=== PATIENT | male | born 1935 | race Two or more races ===

== ENCOUNTER 2017-05-15 19:00 | Inpatient (IN) | payer MEDICARE, MEDICAID ==
[~2017-05-15] VITALS: Ht 172.7 cm; Wt 79.8 kg
[2017-05-15 19:08] VITALS: BP 115/64
[2017-05-15 20:33] LABS: MEAN CORPUSCULAR HEMOGLOBIN 35.1 PG (27.0-31.0); MEAN CORPUSCULAR HGB CONC 34.1 G/DL (32.0-36.0); MEAN CORPUSCULAR VOLUME 103 FL (80-99); MEAN PLATELET VOLUME 6.3 FL (6.5-10.1); PLATELET COUNT 175 K/UL (150-450); RED BLOOD COUNT 2.76 M/UL (4.70-6.10); RED CELL DISTRIBUTION WIDTH 14.1 % (11.6-14.8); WHITE BLOOD COUNT 6.4 K/UL (4.8-10.8)
[2017-05-15 20:52] LABS: TROPONIN I < 0.30 ng/mL (<=0.30)
[2017-05-15 20:55] LABS: ALANINE AMINOTRANSFERASE 11 U/L (3-41); ALBUMIN/GLOBULIN RATIO 0.7 (1.0-2.7); ANION GAP 20 (5-15); ASPARTATE AMINO TRANSFERASE 26 U/L (5-40); CALCIUM 8.3 mg/dL (8.6-10.2); CARBON DIOXIDE 20 mEQ/L (20-30); CHLORIDE 99 mEQ/L (98-107); CREATININE 2.8 mg/dL (0.7-1.2); HEMOLYSIS 2; POTASSIUM 3.6 mEQ/L (3.4-4.9); SODIUM 139 mEQ/L (135-145); TOTAL PROTEIN 5.7 g/dL (6.6-8.7)
[2017-05-15 20:57] LABS: APPEARANCE,URINE CLEAR; KETONES,URINE NEGATIVE (NEGATIVE); LEUKOCYTE ESTERASE ,URINE 1+ (NEGATIVE); NITRITE,URINE NEGATIVE (NEGATIVE); PH,URINE 5 (4.5-8.0); PROTEIN,URINE NEGATIVE (NEGATIVE); UROBILINOGEN,URINE NORMAL MG/DL (0.0-1.0)
[2017-05-15 21:00] LABS: REFLEX LACTIC ACID YES OR NO YES
[2017-05-15 21:05] LABS: CKMB 4.3 ng/mL (< 6.7)
[2017-05-15] MEDS ORDERED: Azithromycin 500 MG in D5W 275 ML IVPB ONE (21:15)
[2017-05-15] MEDS ORDERED: Piperacillin/Tazobactam 3.375 GM in NS 110 ML IVPB ONE (21:15)
[2017-05-15] MEDS ORDERED: Zosyn 3.375gm inj ONE (21:15)
[2017-05-15 21:19] LABS: BAND NEUTROPHILS % (MANUAL) 1 % (0-8); LYMPHOCYTES % (MANUAL) 5 % (20-45); NEUTROPHILS % (MANUAL) 92 % (45-75); TOTAL CELLS COUNTED 100
[2017-05-15 21:20] LABS: BASOPHILS % (MANUAL) 0 % (0-2); EOSINOPHILS % (MANUAL) 0 % (0-3); MACROCYTES 1+; PLATELET ESTIMATE ADEQUATE; PLATELET MORPHOLOGY NORMAL
[2017-05-15 21:22] LABS: RBC,URINE 0-2 /HPF (0 - 0); SQUAMOUS EPITHELIAL CELL,UR FEW /LPF (NONE/OCC)
[2017-05-15 21:23] LABS: BACTERIA,URINE OCCASIONAL /HPF
[2017-05-15 21:41] LABS: BILIRUBIN,DIRECT 4.4 mg/dL (0.1-0.3)
--- NOTE | 2017-05-15 21:50 | Emergency Room Report ---
History of Present Illness General Chief Complaint: Generalized Weakness Source: Family Member, Medical Record Present Illness HPI 81-year-old male presents to ED for evaluation. [facility]. Starting today family states that patient appeared more weak than usual, nursing stated that patient appeared hypoxic on room air. Upon arrival patient is on nasal cannula. Patient has history of COPD, recently treated for pneumonia. Currently on antibiotics. No fevers or chills. No chest pain or shortness of breath. No other aggravating relieving factors. No other associated symptoms Allergies: Coded Allergies: No Known Allergies (Unverified , 05/15/17) Patient History Past Medical History: HTN, COPD Past Surgical History: none Pertinent Family History: none Social History: Denies: smoking, alcohol use, drug use Immunizations: UTD Reviewed Nursing Documentation: PMH: Agreed, PSxH: Agreed Nursing Documentation-PMH Hx Hypertension: Yes Hx COPD: Yes Review of Systems All Other Systems: negative except mentioned in HPI Physical Exam Vital Signs Date Time Temp Pulse Resp B/P (MAP) Pulse Ox O2 Delivery O2 Flow Rate FiO2 05/15/17 18:56 98.4 81 18 110/50 90 Nasal Cannula 3.0 Sp02 EP Interpretation: reviewed, normal General Appearance: no apparent distress, GCS 15, non-toxic, lethargic Head: normocephalic, atraumatic Eyes: bilateral eye normal inspection, bilateral eye PERRL ENT: hearing grossly normal, normal pharynx, no angioedema, normal voice Neck: full range of motion, supple/symm/no masses Respiratory: chest non-tender, crackles, speaking full sentences Cardiovascular #1: regular rate, rhythm, no edema Cardiovascular #2: 2+ carotid (R), 2+ carotid (L), 2+ radial (R), 2+ radial (L) , 2+ dorsalis pedis (R), 2+ dorsalis pedis (L) Gastrointestinal: normal bowel sounds, non tender, soft, non-distended, no guarding, no rebound Rectal: deferred Genitourinary: normal inspection, no CVA tenderness Musculoskeletal: back normal, gait/station normal, normal range of motion, non- tender Neurologic: other - lethargic Psychiatric: other - lethargic Reflexes: 3+ bicep (R), 3+ bicep (L), 3+ tricep (R), 3+ tricep (L), 3+ knee (R) , 3+ knee (L) Skin: normal color, no rash, warm/dry, well hydrated Lymphatic: no adenopathy Medical Decision Making Diagnostic Impression: Primary Impression: COPD exacerbation Additional Impressions: Pneumonia Qualified Codes: J18.1 - Lobar pneumonia, unspecified organism Sepsis Qualified Codes: A41.9 - Sepsis, unspecified organism ARF (acute renal failure) Qualified Codes: N17.9 - Acute kidney failure, unspecified ER Course Hospital Course 81-year-old male sent to ED for hypoxia, shortness of breath, weakness Differential diagnoses include: Pneumonia, CHF exacerbation, pneumothorax, fluid overload Clinical course Patient placed on stretcher. 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 After initial history and physical, I ordered labs, IV fluids, EKG, chest x-ray , blood cultures, UA. Patient placed on nasal cannula with O2 saturation improving Labs -leukocytosis noted, hemoglobin/hematocrit stable, BUN/Cr elevated, Lactate > 3, AG elevated, UA negative EKG - afib ,RBBB, no acute changes intperretd by me CXR - bilateral lower lobe infiltrates 30 mL per kg fluid bolus given. abx given Case discussed with Dr. Nair (as requested by Dr Gray) and he agreed to the patient to his service for further care and support I feel this is a highly complex case requiring extensive working including EKG/ Rhythm strip, Xray/CT/US, Blood/urine lab work, repeat exams while in ED, and administration of strong opiates/narcotics for pain control, admission to hospital or close patient follow up. Diagnosis - pneumonia, COPD exacerbation, sepsis, ARF Patient admitted to telemetry in serious condition Labs Test 05/15/17 20:13 05/15/17 20:30 White Blood Count 6.4 K/UL (4.8-10.8) Red Blood Count 2.76 M/UL (4.70-6.10) Hemoglobin 9.7 G/DL (14.2-18.0) Hematocrit 28.5 % (42.0-52.0) Mean Corpuscular Volume 103 FL (80-99) Mean Corpuscular Hemoglobin 35.1 PG (27.0-31.0) Mean Corpuscular Hemoglobin Concent 34.1 G/DL (32.0-36.0) Red Cell Distribution Width 14.1 % (11.6-14.8) Platelet Count 175 K/UL (150-450) Mean Platelet Volume 6.3 FL (6.5-10.1) Neutrophils (%) (Auto) % (45.0-75.0) Lymphocytes (%) (Auto) % (20.0-45.0) Monocytes (%) (Auto) % (1.0-10.0) Eosinophils (%) (Auto) % (0.0-3.0) Basophils (%) (Auto) % (0.0-2.0) Differential Total Cells Counted 100 Neutrophils % (Manual) 92 % (45-75) Lymphocytes % (Manual) 5 % (20-45) Monocytes % (Manual) 2 % (1-10) Eosinophils % (Manual) 0 % (0-3) Basophils % (Manual) 0 % (0-2) Band Neutrophils 1 % (0-8) Platelet Estimate Adequate Platelet Morphology Normal Macrocytosis 1+ Sodium Level 139 mEQ/L (135-145) Potassium Level 3.6 mEQ/L (3.4-4.9) Chloride Level 99 mEQ/L (98-107) Carbon Dioxide Level 20 mEQ/L (20-30) Anion Gap 20 (5-15) Blood Urea Nitrogen 95 mg/dL (7-23) Creatinine 2.8 mg/dL (0.7-1.2) Estimat Glomerular Filtration Rate mL/min (>60) Glucose Level 173 mg/dL (74-106) Lactic Acid Level 3.30 mmol/L (0.66-2.22) Calcium Level 8.3 mg/dL (8.6-10.2) Total Bilirubin 5.8 mg/dL (0.0-1.2) Direct Bilirubin 4.4 mg/dL (0.1-0.3) Aspartate Amino Transf (AST/SGOT) 26 U/L (5-40) Alanine Aminotransferase (ALT/SGPT) 11 U/L (3-41) Alkaline Phosphatase 178 U/L (40-129) Total Creatine Kinase 48 U/L (38-174) Creatine Kinase MB 4.3 ng/mL (< 6.7) Creatine Kinase MB Relative Index 8.9 Troponin I < 0.30 ng/mL (<=0.30) Pro-B-Type Natriuretic Peptide 87462 pg/mL (0-450) Total Protein 5.7 g/dL (6.6-8.7) Albumin 2.5 g/dL (3.5-5.2) Globulin 3.2 g/dL Albumin/Globulin Ratio 0.7 (1.0-2.7) Urine Color Yellow Urine Appearance Clear Urine pH 5 (4.5-8.0) Urine Specific [place] 1.015 (1.005-1.035) Urine Protein Negative (NEGATIVE) Urine Glucose (UA) Negative (NEGATIVE) Urine Ketones Negative (NEGATIVE) Urine Occult Blood Negative (NEGATIVE) Urine Nitrite Negative (NEGATIVE) Urine Bilirubin Negative (NEGATIVE) Urine Urobilinogen Normal MG/DL (0.0-1.0) Urine Leukocyte Esterase 1+ (NEGATIVE) Urine RBC 0-2 /HPF (0 - 0) Urine WBC 5-10 /HPF (0 - 0) Urine Squamous Epithelial Cells Few /LPF (NONE/OCC) Urine Bacteria Occasional /HPF (NONE) EKG Diagnostic Results Rate: normal Rhythm: other - afib ST Segments: other - RBBB ASA given to the pt in ED: No Rhythm Strip Diag. Results EP Interpretation: yes Rhythm: no PVC's, no ectopy Chest X-Ray Diagnostic Results Chest X-Ray Diagnostic Results : Chest X-Ray Ordered: Yes Indication: Shortness of Breath EP Interpretation: Yes Interpretation: no pneumothorax, no acute cardiopulmonary disease Impression: Other - pneumonia\ Electronically Signed by: Electronically signed by Sergio Lui MD Last Vital Signs Date Time Temp Pulse Resp B/P (MAP) Pulse Ox O2 Delivery O2 Flow Rate FiO2 05/15/17 19:08 98.4 96 15 115/64 90 Nasal Cannula 3.0 Status: improved Disposition: ADMITTED INPATIENT Condition: Serious Referrals: MARIA DEL CARMEN GRAY (PCP) SERGIO LUI M.D. May 15, 2017 21:50
[2017-05-15] MEDS ORDERED: ATORVASTATIN CA20 MG ORAL (21:59)
[2017-05-15] MEDS ORDERED: VITAMIN A & D454 GM TOP (21:59)
[2017-05-15] MEDS ORDERED: VITAMIN A & D113 GM TP (21:59)
[2017-05-15] MEDS ORDERED: NOVOLOG100 UNIT/3 SUBQ (21:59)
[2017-05-15] MEDS ORDERED: VITAMIN C500 M1 ORAL (21:59)
[2017-05-15] MEDS ORDERED: ZINC OXIDE56.7 G1 TP (21:59)
[2017-05-15] MEDS ORDERED: ZINC SULFATE220 M1 ORAL (21:59)
[2017-05-15] MEDS ORDERED: TYLENOL650 MG/20. ORAL (21:59)
[2017-05-15] MEDS ORDERED: ASPIRIN EC81 MG ORAL (21:59)
[2017-05-15] MEDS ORDERED: MULTIVITAMINS1 EAC2 ORAL (21:59)
[2017-05-15 22:00] VITALS: BP 114/64
[2017-05-15] MEDS ORDERED: Azithromycin 500mg Inj IV ONE (22:13)
[2017-05-15 23:40] VITALS: BP 118/70
[2017-05-16] MEDS ORDERED: ASCORBIC ACID500 MG ORAL (00:16)
[2017-05-16] MEDS ORDERED: Albuterol ud Inhalation HHN PRN (00:30)
[2017-05-16 04:00] VITALS: BP 113/59
[2017-05-16] MEDS: NovoLOG Insulin Flexpen SUBQ SCH ×4 (06:53→21:00)
[2017-05-16 08:28] VITALS: BP 118/94
[2017-05-16] MEDS: Aspirin Baby 81mg ORAL SCH (09:28)
--- NOTE | 2017-05-16 09:36 | Infectious Diseases Prog Note ---
Assessment/Plan Problems: (1) HCAP (healthcare-associated pneumonia) Assessment & Plan: will send sputum for culture and start cefepime with clindamycin empirically, monitro CXR (2) Sepsis Assessment & Plan: due to the above, will send blood culture and start cefepime with clindamycin (3) Ascites Assessment & Plan: recurrent, due to liver cirrhosis, recommend paracentesis to rule out SBP, and GI consult (4) Anasarca Assessment & Plan: due to liver cirrhosis, continue diuresis , monitor daily weight (5) COPD exacerbation Assessment & Plan: due to pneumonia, continue inhalers, and oxygen, monitor CXR (6) ARF (acute renal failure) Assessment & Plan: on top of 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, nephrology is following Subjective Allergies: Coded Allergies: No Known Allergies (Unverified , 05/15/17) Objective Vital Signs Last 24 Hour Vital Signs Date Time Temp Pulse Resp B/P (MAP) Pulse Ox O2 Delivery O2 Flow Rate FiO2 05/16/17 08:28 98.3 85 17 118/94 98 Nasal Cannula 2.0 05/16/17 08:08 98 Nasal Cannula 2.0 28 05/16/17 08:08 Nasal Cannula 2.0 28 05/16/17 08:06 94 20 Nasal Cannula 2.0 28 05/16/17 04:00 97.0 101 20 113/59 96 Nasal Cannula 2.0 05/16/17 04:00 74 05/15/17 23:40 97.5 99 14 118/70 94 Nasal Cannula 3.0 05/15/17 23:20 97.4 84 11 114/64 100 Nasal Cannula 3.0 05/15/17 22:00 97.4 84 11 114/64 100 Nasal Cannula 3.0 05/15/17 19:08 98.4 96 15 115/64 90 Nasal Cannula 3.0 05/15/17 18:56 98.4 81 18 110/50 90 Nasal Cannula 3.0 Height (Feet): 5 Height (Inches): 8.00 Weight (Pounds): 174 Laboratory Tests Test 05/15/17 20:13 05/15/17 20:30 05/15/17 21:50 White Blood Count 6.4 K/UL (4.8-10.8) Red Blood Count 2.76 M/UL (4.70-6.10) L Hemoglobin 9.7 G/DL (14.2-18.0) L Hematocrit 28.5 % (42.0-52.0) L Mean Corpuscular Volume 103 FL (80-99) H Mean Corpuscular Hemoglobin 35.1 PG (27.0-31.0) H Mean Corpuscular Hemoglobin Concent 34.1 G/DL (32.0-36.0) Red Cell Distribution Width 14.1 % (11.6-14.8) Platelet Count 175 K/UL (150-450) Mean Platelet Volume 6.3 FL (6.5-10.1) L Neutrophils (%) (Auto) % (45.0-75.0) Lymphocytes (%) (Auto) % (20.0-45.0) Monocytes (%) (Auto) % (1.0-10.0) Eosinophils (%) (Auto) % (0.0-3.0) Basophils (%) (Auto) % (0.0-2.0) Differential Total Cells Counted 100 Neutrophils % (Manual) 92 % (45-75) H Lymphocytes % (Manual) 5 % (20-45) L Monocytes % (Manual) 2 % (1-10) Eosinophils % (Manual) 0 % (0-3) Basophils % (Manual) 0 % (0-2) Band Neutrophils 1 % (0-8) Platelet Estimate Adequate Platelet Morphology Normal Macrocytosis 1+ Sodium Level 139 mEQ/L (135-145) Potassium Level 3.6 mEQ/L (3.4-4.9) Chloride Level 99 mEQ/L (98-107) Carbon Dioxide Level 20 mEQ/L (20-30) Anion Gap 20 (5-15) H Blood Urea Nitrogen 95 mg/dL (7-23) H Creatinine 2.8 mg/dL (0.7-1.2) H Estimat Glomerular Filtration Rate mL/min (>60) Glucose Level 173 mg/dL (74-106) H Lactic Acid Level 3.30 mmol/L (0.66-2.22) H 2.50 mmol/L (0.66-2.22) H Calcium Level 8.3 mg/dL (8.6-10.2) L Total Bilirubin 5.8 mg/dL (0.0-1.2) H Direct Bilirubin 4.4 mg/dL (0.1-0.3) H Aspartate Amino Transf (AST/SGOT) 26 U/L (5-40) Alanine Aminotransferase (ALT/SGPT) 11 U/L (3-41) Alkaline Phosphatase 178 U/L (40-129) H Total Creatine Kinase 48 U/L (38-174) Creatine Kinase MB 4.3 ng/mL (< 6.7) Creatine Kinase MB Relative Index 8.9 Troponin I < 0.30 ng/mL (<=0.30) Pro-B-Type Natriuretic Peptide 25257 pg/mL (0-450) H Total Protein 5.7 g/dL (6.6-8.7) L Albumin 2.5 g/dL (3.5-5.2) L Globulin 3.2 g/dL Albumin/Globulin Ratio 0.7 (1.0-2.7) L Urine Color Yellow Urine Appearance Clear Urine pH 5 (4.5-8.0) Urine Specific [place] 1.015 (1.005-1.035) Urine Protein Negative (NEGATIVE) Urine Glucose (UA) Negative (NEGATIVE) Urine Ketones Negative (NEGATIVE) Urine Occult Blood Negative (NEGATIVE) Urine Nitrite Negative (NEGATIVE) Urine Bilirubin Negative (NEGATIVE) Urine Urobilinogen Normal MG/DL (0.0-1.0) Urine Leukocyte Esterase 1+ (NEGATIVE) H Urine RBC 0-2 /HPF (0 - 0) H Urine WBC 5-10 /HPF (0 - 0) H Urine Squamous Epithelial Cells Few /LPF (NONE/OCC) Urine Bacteria Occasional /HPF (NONE) Current Medications Medications (Trade) Dose Ordered Sig/Jenifer Route PRN Reason Start Time Stop Time Status Last Admin Dose Admin Acetaminophen (Tylenol) 500 mg EVERY 6 HOURS PRN ORAL Mild Pain/Temp > 100.5 05/16/17 00:30 06/15/17 00:29 Al Hydroxide/Mg Hydroxide (Mylanta) 30 ml FOUR TIMES A DAY PRN ORAL For Pain 05/16/17 00:30 06/15/17 00:29 Albuterol Sulfate (Proventil) 2.5 mg EVERY 4 HOURS PRN HHN Shortness of Breath 05/16/17 00:30 05/21/17 00:29 Aspirin (ASA) 81 mg DAILY ORAL 05/16/17 09:00 06/15/17 08:59 05/16/17 09:28 Atorvastatin Calcium (Lipitor) 20 mg BEDTIME ORAL 05/16/17 21:00 06/15/17 20:59 Cefepime HCl 2 gm/ Dextrose 110 ml @ 220 mls/hr EVERY 12 HOURS IVPB 05/16/17 09:30 05/23/17 09:29 UNV Clindamycin HCl/ Dextrose 50 ml @ 100 mls/hr Q8HR IVPB 05/16/17 09:30 05/23/17 09:29 UNV Dextrose (Dextrose 50%) STAT PRN IV Hypoglycemia 05/16/17 00:30 06/15/17 00:29 Insulin Aspart (NovoLOG) BEFORE MEALS AND HS SUBQ 05/16/17 06:30 06/15/17 06:29 05/16/17 06:53 Axel Jensen M.D. May 16, 2017 09:36
--- NOTE | 2017-05-16 10:56 | Diagnostic Imaging Report ---
Indication: Dyspnea Comparison: None A single view chest radiograph was obtained. Findings: There is blunting of the right costophrenic angle due to pleural effusion or thickening. Suggestion of mild subsegmental basilar atelectasis. The bones are osteopenic. Heart size is normal. No definite infiltrate seen. Aorta is ectatic. Impression: Small right pleural effusion versus pleural thickening. Basilar atelectasis Osteopenia
[2017-05-16] MEDS ORDERED: Heparin 5000 units/ml inj IV ONE (12:00)
[2017-05-16] MEDS ORDERED: Heparin 25,000u/D5W 500ml 500 ML IV SCH ×2 (12:00→12:15)
[2017-05-16] MEDS: Cefepime HCl 2 GM in D5W 110 ML IVPB SCH (12:23)
[2017-05-16 12:25] VITALS: BP 118/65
[2017-05-16 12:30] LABS: MEAN CORPUSCULAR HEMOGLOBIN 33.2 PG (27.0-31.0); MEAN CORPUSCULAR HGB CONC 32.7 G/DL (32.0-36.0); MEAN CORPUSCULAR VOLUME 102 FL (80-99); MEAN PLATELET VOLUME 5.7 FL (6.5-10.1); PLATELET COUNT 148 K/UL (150-450); RED BLOOD COUNT 2.55 M/UL (4.70-6.10); RED CELL DISTRIBUTION WIDTH 14.7 % (11.6-14.8); WHITE BLOOD COUNT 5.4 K/UL (4.8-10.8)
[2017-05-16] MEDS: Clindamycin 600mg 50 ML IV SCH ×2 (13:27→20:24)
[2017-05-16 13:35] LABS: ANISOCYTOSIS 1+; BAND NEUTROPHILS % (MANUAL) 0 % (0-8); BASOPHILS % (MANUAL) 0 % (0-2); EOSINOPHILS % (MANUAL) 0 % (0-3); HYPOCHROMASIA 2+; LYMPHOCYTES % (MANUAL) 4 % (20-45); NEUTROPHILS % (MANUAL) 85 % (45-75); PLATELET ESTIMATE DECREASED; PLATELET MORPHOLOGY NORMAL; TARGET CELLS 1+; TEAR DROP CELLS 1+; TOTAL CELLS COUNTED 100
[2017-05-16 16:00] VITALS: BP 130/73
[2017-05-16 19:59] VITALS: BP 114/65
[2017-05-16] MEDS: Atorvastatin 20mg tab ORAL SCH (20:39)
--- NOTE | 2017-05-16 21:52 | History and Physical ---
History of Present Illness General Date patient seen: May 16, 2017 Reason for Hospitalization: Generalized Weakness Present Illness HPI 81-year-old male with history of HTN and COPD who resides in [facility] presents to the ED with generalized weakness. Per family patient appeared more weak than usual. It was then noted that patient was hypoxic on room air. Apparently patient had pneumonia recently and still on antibiotics. No fevers or chills. No chest pain or shortness of breath. No other aggravating relieving factors. No other associated symptoms Allergies: Coded Allergies: No Known Allergies (Unverified , 05/15/17) Medication History Scheduled Ascorbic Acid* (Ascorbic Acid*), 500 MG ORAL TWICE A DAY, (Reported) Aspirin Ec* (Aspirin Ec*), 81 MG ORAL DAILY, (Reported) Atorvastatin Calcium* (Atorvastatin Calcium*), 20 MG ORAL BEDTIME, (Reported) Multivitamins* (Multivitamins*), 1 TAB ORAL DAILY, (Reported) Zinc Sulfate (Zinc Sulfate*), 220 MG ORAL DAILY, (Reported) Scheduled PRN Acetaminophen (Acetaminophen), 650 MG ORAL EVERY 4 HOURS PRN for Prn Headache/ Temp > 101, (Reported) Miscellaneous Medications Insulin Aspart* (Novolog*), 0 SUBQ, (Reported) Insulin Aspart* (Novolog*), 0 SUBQ, (Reported) Petrolatum,White/Lanolin (Vitamin A & D Ointment), 113 GM TP, (Reported) Vitamin A & D (Vitamin A & D Ointment), 454 GM TOP, (Reported) Zinc Oxide (Zinc Oxide), 56.7 GM TP, (Reported) Patient History History Provided By: Medical Record Healthcare decision maker Resuscitation status Full Code Advanced Directive on File Past Medical/Surgical History Past Medical/Surgical History: (1) HTN (hypertension) (2) COPD (chronic obstructive pulmonary disease) Review of Systems All Other Systems: negative except mentioned in HPI ROS Narrative limited Physical Exam General Appearance: WD/WN, no apparent distress HEENT: normocephalic, atraumatic Respiratory/Chest: decreased breath sounds Cardiovascular/Chest: normal rate, regular rhythm Abdomen: non tender, soft, distended Extremities: moderate edema Neurologic: alert Last 24 Hour Vital Signs Date Time Temp Pulse Resp B/P (MAP) Pulse Ox O2 Delivery O2 Flow Rate FiO2 05/16/17 19:59 97.9 84 20 114/65 100 Nasal Cannula 2.0 05/16/17 19:30 96 Nasal Cannula 2.0 28 05/16/17 19:30 Nasal Cannula 2.0 28 05/16/17 19:30 88 20 Nasal Cannula 2.0 28 05/16/17 16:23 83 05/16/17 16:00 97.5 92 20 130/73 100 Nasal Cannula 3.0 05/16/17 12:25 98.1 94 18 118/65 98 Nasal Cannula 2.0 05/16/17 11:54 82 05/16/17 08:28 98.3 85 17 118/94 98 Nasal Cannula 2.0 05/16/17 08:08 98 Nasal Cannula 2.0 28 05/16/17 08:08 Nasal Cannula 2.0 28 05/16/17 08:06 94 20 Nasal Cannula 2.0 28 05/16/17 07:58 90 05/16/17 04:00 97.0 101 20 113/59 96 Nasal Cannula 2.0 05/16/17 04:00 74 05/15/17 23:40 97.5 99 14 118/70 94 Nasal Cannula 3.0 05/15/17 23:20 97.4 84 11 114/64 100 Nasal Cannula 3.0 05/15/17 22:00 97.4 84 11 114/64 100 Nasal Cannula 3.0 Intake and Output 05/16/17 05/17/17 19:00 07:00 Intake Total 620 ml Balance 620 ml Intake Oral 300 ml IV Total 320 ml # Voids 3 # Bowel Movements 2 Laboratory Tests Test 05/15/17 21:50 05/16/17 12:08 05/16/17 17:30 05/16/17 18:35 Lactic Acid Level 2.50 mmol/L (0.66-2.22) H White Blood Count 5.4 K/UL (4.8-10.8) Red Blood Count 2.55 M/UL (4.70-6.10) L Hemoglobin 8.5 G/DL (14.2-18.0) L Hematocrit 26.0 % (42.0-52.0) L Mean Corpuscular Volume 102 FL (80-99) H Mean Corpuscular Hemoglobin 33.2 PG (27.0-31.0) H Mean Corpuscular Hemoglobin Concent 32.7 G/DL (32.0-36.0) Red Cell Distribution Width 14.7 % (11.6-14.8) Platelet Count 148 K/UL (150-450) L Mean Platelet Volume 5.7 FL (6.5-10.1) L Neutrophils (%) (Auto) % (45.0-75.0) Lymphocytes (%) (Auto) % (20.0-45.0) Monocytes (%) (Auto) % (1.0-10.0) Eosinophils (%) (Auto) % (0.0-3.0) Basophils (%) (Auto) % (0.0-2.0) Differential Total Cells Counted 100 Neutrophils % (Manual) 85 % (45-75) H Lymphocytes % (Manual) 4 % (20-45) L Monocytes % (Manual) 11 % (1-10) H Eosinophils % (Manual) 0 % (0-3) Basophils % (Manual) 0 % (0-2) Band Neutrophils 0 % (0-8) Platelet Estimate Decreased L Platelet Morphology Normal Hypochromasia 2+ Anisocytosis 1+ Target Cells 1+ Tear Drop Cells 1+ Activated Partial Thromboplast Time 33 SEC (23-33) 33 SEC (23-33) Stool Occult Blood Pending Height (Feet): 5 Height (Inches): 8.00 Weight (Pounds): 161 Medications Current Medications Medications (Trade) Dose Ordered Sig/Jenifer Route PRN Reason Start Time Stop Time Status Last Admin Dose Admin Acetaminophen (Tylenol) 500 mg EVERY 6 HOURS PRN ORAL Mild Pain/Temp > 100.5 05/16/17 00:30 06/15/17 00:29 Al Hydroxide/Mg Hydroxide (Mylanta) 30 ml FOUR TIMES A DAY PRN ORAL For Pain 05/16/17 00:30 06/15/17 00:29 Albuterol Sulfate (Proventil) 2.5 mg EVERY 4 HOURS PRN HHN Shortness of Breath 05/16/17 00:30 05/21/17 00:29 Aspirin (ASA) 81 mg DAILY ORAL 05/16/17 09:00 06/15/17 08:59 05/16/17 09:28 Atorvastatin Calcium (Lipitor) 20 mg BEDTIME ORAL 05/16/17 21:00 06/15/17 20:59 05/16/17 20:39 Cefepime HCl 2 gm/ Dextrose 110 ml @ 220 mls/hr Q24H IVPB 05/16/17 11:00 05/23/17 10:59 05/16/17 12:23 Clindamycin HCl/ Dextrose 50 ml @ 100 mls/hr Q8H IV 05/16/17 12:00 05/23/17 11:59 05/16/17 20:24 Dextrose (Dextrose 50%) STAT PRN IV Hypoglycemia 05/16/17 00:30 06/15/17 00:29 Insulin Aspart (NovoLOG) BEFORE MEALS AND HS SUBQ 05/16/17 06:30 06/15/17 06:29 05/16/17 17:16 Assessment/Plan Problem List: (1) COPD exacerbation ICD Codes: J44.1 - Chronic obstructive pulmonary disease with (acute) exacerbation SNOMED: 175612755, 799744848 (2) HTN (hypertension) ICD Codes: I10 - Essential (primary) hypertension SNOMED: 74348314 (3) Pneumonia ICD Codes: J18.9 - Pneumonia, unspecified organism SNOMED: 264631157, 280914833 Qualifiers: Qualified Codes: J18.1 - Lobar pneumonia, unspecified organism (4) Liver cirrhosis ICD Codes: K74.60 - Unspecified cirrhosis of liver SNOMED: 30584651 (5) Ascites ICD Codes: R18.8 - Other ascites SNOMED: 660999860 Assessment/Plan ID consult. GI consult. Cardio consult. Empiric abx per ID. DVT ppx. Monitor labs. Check ammonia level. Resume home meds. MELANIE CONNELLY May 16, 2017 21:52
[2017-05-17] VITALS: BP 106/60
--- NOTE | 2017-05-17 02:15 | Consultation ---
DATE OF CONSULTATION: 05/16/2017 INFECTIOUS DISEASES CONSULTATION REQUESTING PHYSICIAN: Rickie Nair M.D. REASON FOR CONSULTATION: Pneumonia, sepsis. Recommendation for antibiotics therapy and liver cirrhosis HISTORY OF PRESENT ILLNESS: The patient is an 81-year-old male with history of chronic liver cirrhosis with ascites, who was recently admitted to [facility] [place] for worsening ascites and abdominal pain. He was found to have a bowel obstruction and pneumonia. He was started on antibiotics treatment and discharged to half-way facility. The patient was found to be more weak than usual by his family when they visited him in the snf and he was hypoxemic on room air. So, he was sent to [facility] emergency room for further evaluation. The patient had a chest x-ray, which showed bilateral basal atelectases, possible infiltration, suspicious for pneumonia. So, he was admitted for further evaluation and management and I was consulted by the primary provider for antibiotics treatment and further care. As of note, the patient is elderly poor historian. REVIEW OF SYSTEMS: Unable to obtain at this point. The patient is a poor historian, could not provide good history. PAST MEDICAL HISTORY: Significant for hypertension; COPD; chronic liver cirrhosis, complicated with esophageal varices and recurrent ascites, required multiple paracentesis; malnutrition; and recent healthcare-acquired pneumonia, status post antibiotic treatment at [facility]. PAST SURGICAL HISTORY: Negative. MEDICATIONS: The patient received Zosyn in the emergency room. For the rest of his medications. Please refer to MAR. ALLERGIES: He has no known drug allergy. SOCIAL HISTORY: The patient was recently at the rehabilitation facility. There are no recent drugs, tobacco, or alcohol. FAMILY HISTORY: Noncontributory. PHYSICAL EXAMINATION: Vital Signs: Temperature 98.1 degrees, pulse 94, respirations 18, blood pressure 118/65, and saturation 98% on 2 liter nasal cannula. General: Elderly male, cachectic, up in bed, awake, alert, but confused, not in acute distress. HEENT: Normocephalic and atraumatic. Pupils are reactive to light. Pale sclerae. Moist oral mucosa. No exudate. No jaundice. NECK: Supple. No lymphadenopathy. Midline trachea. CARDIOVASCULAR: Regular rate and rhythm. No murmur. No gallop. Lungs: He had diminished breathing sounds with crackles at the bases. Normal breathing efforts. Abdomen: Soft, severely distended with massive ascites. Positive wave sign. Unable to appreciate organomegaly, dull per percussion. Extremities: Edema +2 with multiple skin bruises and a small wound in the right dorsal foot. Skin: He had multiple ecchymosis and bruises with hemorrhage all over his upper and lower extremity and back from his coagulopathy. LABORATORY DATA: White count showed 5.4, hemoglobin 8.5, and platelet count 148,000. BUN of 95 and creatinine of 2.8. AST of 26 and ALT of 11. Urinalysis showed +1 leukocyte esterase, WBC 5 to 10, and occasional bacteria. MICROBIOLOGY: Unavailable at the time of the consult dictation. IMAGING: Chest x-ray on admission showed small right pleural effusion versus pleural thickening, bibasilar atelectases, and osteopenia. ASSESSMENT AND RECOMMENDATION: 1. Healthcare-acquired pneumonia. We will send sputum culture and start cefepime with clindamycin empiric treatment. Monitor chest x-ray. 2. Sepsis, suspect due to the above. We will send blood culture and start antibiotic coverage with cefepime and clindamycin pending culture results. 3. Ascites, recurrent due to liver cirrhosis. Recommend paracentesis to rule out spontaneous bacterial peritonitis and Gastroenterology consult for further evaluation and management. 4. Anasarca due to liver cirrhosis. Continue diuresis. Monitor daily weight and urine output. 5. Chronic obstructive pulmonary disease with exacerbation due to pneumonia. Continue inhalers, oxygen therapy, and antibiotics. Monitor chest x-ray. 6. Acute renal failure on top of chronic, suspect hepatorenal. Nephrology team is following. Thank you for the consult. Infectious Disease will continue to follow. Axel Jensen M.D. DR: JOSE ARMANDO JOB#: [id number] CC: [email or web address]
[2017-05-17 04:00] VITALS: BP 112/55
[2017-05-17] MEDS: Clindamycin 600mg 50 ML IV SCH ×3 (04:30→20:42)
[2017-05-17] MEDS: NovoLOG Insulin Flexpen SUBQ SCH ×4 (06:30→20:43)
[2017-05-17 07:21] LABS: MEAN CORPUSCULAR HEMOGLOBIN 35.1 PG (27.0-31.0); MEAN CORPUSCULAR HGB CONC 34.6 G/DL (32.0-36.0); MEAN CORPUSCULAR VOLUME 101 FL (80-99); MEAN PLATELET VOLUME 6.8 FL (6.5-10.1); PLATELET COUNT 148 K/UL (150-450); RED BLOOD COUNT 2.25 M/UL (4.70-6.10); RED CELL DISTRIBUTION WIDTH 14.6 % (11.6-14.8); WHITE BLOOD COUNT 4.6 K/UL (4.8-10.8)
[2017-05-17 07:34] LABS: ALANINE AMINOTRANSFERASE 9 U/L (3-41); ALBUMIN/GLOBULIN RATIO 0.9 (1.0-2.7); ANION GAP 17 (5-15); ASPARTATE AMINO TRANSFERASE 21 U/L (5-40); CALCIUM 9.6 mg/dL (8.6-10.2); CARBON DIOXIDE 22 mEQ/L (20-30); CHLORIDE 99 mEQ/L (98-107); CREATININE 2.8 mg/dL (0.7-1.2); HEMOLYSIS 2; POTASSIUM 2.8 mEQ/L (3.4-4.9); SODIUM 138 mEQ/L (135-145); TOTAL PROTEIN 5.4 g/dL (6.6-8.7)
[2017-05-17 07:35] LABS: AMMONIA 12 umol/L (16-60)
[2017-05-17 07:38] LABS: HEMOLYSIS 1; IRON 32 ug/dL (59-158); TOTAL IRON BINDING CAPACITY 105 ug/dL (250-400)
[2017-05-17 07:48] LABS: FERRITIN 530 ng/mL (10-230)
[2017-05-17 08:00] VITALS: BP 123/73
[2017-05-17 08:20] LABS: ANISOCYTOSIS 1+; HYPOCHROMASIA 1+; LYMPHOCYTES % (MANUAL) 5 % (20-45); MACROCYTES 1+; NEUTROPHILS % (MANUAL) 90 % (45-75); TOTAL CELLS COUNTED 100
[2017-05-17 08:21] LABS: OVALOCYTES 1+; TARGET CELLS 1+
[2017-05-17 08:22] LABS: BAND NEUTROPHILS % (MANUAL) 0 % (0-8); BASOPHILS % (MANUAL) 0 % (0-2); EOSINOPHILS % (MANUAL) 0 % (0-3); PLATELET ESTIMATE DECREASED; PLATELET MORPHOLOGY NORMAL
[2017-05-17] MEDS: Aspirin Baby 81mg ORAL SCH (08:29)
[2017-05-17 08:36] LABS: BILIRUBIN,DIRECT 3.9 mg/dL (0.1-0.3)
[2017-05-17 08:47] LABS: PATH BLOOD SMEAR/OMC SEND TO PATHOLOGIST; RETICULOCYTE COUNT 2.8 % (0.0-2.0)
--- NOTE | 2017-05-17 09:30 | Consultation ---
DATE OF CONSULTATION: 05/16/2017 HEMATOLOGY/ONCOLOGY CONSULTATION CONSULTING PHYSICIAN: Devyn Hu M.D. REQUESTING PHYSICIAN: Rickie Nair M.D. REASON FOR CONSULTATION: Evaluation of SFV DVT treatment. IDENTIFICATION DATA: Dear Dr. Nair, The patient is a pleasant 81-year-old male with past medical history significant for COPD, who resides in a custodial as well as hyperlipidemia, and vitamin C deficiency, at this time presents with generalized weakness, appears more than usual, hypoxic on room air, presently has pneumonia. Chest x-ray was completed thus far and was negative for any acute cardiopulmonary process besides small right pleural effusion. The patient was noted to have a DVT of the SFV and heparin drip was stopped due to the patient becoming anemic. Hematology service was consulted as well. PAST MEDICAL HISTORY: Hypertension and COPD. MEDICATIONS: Ascorbic acid, aspirin, multivitamin, and zinc sulfate. ALLERGIES: No known drug allergies. SOCIAL HISTORY: No alcohol, tobacco, or illicit drug use. Review Of Systems: Constitutional: No fevers, chills, or night sweats. Skin: No rashes, lumps, or itching. HEENT: No headache, hearing or vision changes. Breasts: No lumps, pain, or discharge. Pulmonary: No cough, sputum, or shortness of breath. Gastrointestinal: No nausea or vomiting. Genitourinary: No dysuria, frequency, or urgency. Musculoskeletal: No joint swelling, muscle pain, or trauma. PHYSICAL EXAMINATION: GENERAL: He is in no acute distress. Vital Signs: Temperature is 98 degrees Fahrenheit, pulse of 82, respiratory rate 12, and blood pressure 126/82. PULMONARY: Decreased breath sounds. No crackles noted. CARDIOVASCULAR: Regular rate. No S3 or S4. ABDOMEN: Soft, nontender, and nondistended. EXTREMITIES: There is 1+ edema. Laboratory Data: WBC , hemoglobin , hematocrit 26, and platelet count 148,000. ASSESSMENT AND PLAN: 1. Deep venous thrombosis of superficial femoral vein in the lower extremity, agreed that anticoagulation at this time is contraindicated, given recurrent anemia. Therefore, recommend inferior vena cava filter placement. 2. Coagulopathy. 3. Liver cirrhosis. 4. Anemia secondary to chronic disease. Anemia workup has been ordered. 5. Pneumonia. Management as per ID service. 6. Ascites, probably secondary to underlying cirrhosis of liver. 7. Hypertension, currently better controlled. I appreciate the consultation. Devyn Hu M.D. DR: ELOY JOB#: [id number] CC:
[2017-05-17] MEDS: Acetaminophen 500mg (ES) tab ORAL PRN ×2 (09:59→16:48)
[2017-05-17] MEDS ORDERED: Tubing IV Secondary IV ONE (11:08)
[2017-05-17] MEDS ORDERED: NS 275ml ONE (11:08)
[2017-05-17] MEDS: Cefepime HCl 2 GM in D5W 110 ML IVPB SCH (11:37)
--- NOTE | 2017-05-17 11:37 | General Progress Note ---
Assessment/Plan Assessment/Plan ASSESSMENT AND PLAN: 1. Deep venous thrombosis of superficial femoral vein in the lower extremity, agreed that anticoagulation at this time is contraindicated, given recurrent and worsening anemia. Therefore, recommend inferior vena cava filter placement. Order has been placed 2. Coagulopathy. 3. Liver cirrhosis. 4. Anemia secondary to chronic disease with decrease in HH. No evidence of iron deficiency. --> occult blood is positive, gi consult --> transfuse if patient is symptomatic or hgb below 7 5. Pneumonia. Management as per ID service. 6. Ascites, probably secondary to underlying cirrhosis of liver. 7. Hypertension, currently better controlled. Subjective Constitutional: Reports: no symptoms HEENT: Reports: no symptoms Cardiovascular: Reports: no symptoms Respiratory: Reports: no symptoms Gastrointestinal/Abdominal: Reports: no symptoms Genitourinary: Reports: no symptoms Neurologic/Psychiatric: Reports: no symptoms Endocrine: Reports: no symptoms Hematologic/Lymphatic: Reports: anemia Allergies: Coded Allergies: No Known Allergies (Unverified , 05/15/17) Objective Last 24 Hour Vital Signs Date Time Temp Pulse Resp B/P (MAP) Pulse Ox O2 Delivery O2 Flow Rate FiO2 05/17/17 08:00 86 05/17/17 08:00 97.9 88 18 123/73 100 Nasal Cannula 2.0 05/17/17 07:54 Nasal Cannula 2.0 05/17/17 07:53 86 20 Nasal Cannula 2.0 05/17/17 07:53 100 Nasal Cannula 2.0 28 05/17/17 04:00 78 05/17/17 04:00 97.6 86 20 112/55 100 Nasal Cannula 2.0 05/17/17 00:00 97.0 76 20 106/60 98 Room Air 05/17/17 00:00 91 05/16/17 20:00 93 05/16/17 19:59 97.9 84 20 114/65 100 Nasal Cannula 2.0 05/16/17 19:30 96 Nasal Cannula 2.0 28 05/16/17 19:30 Nasal Cannula 2.0 28 05/16/17 19:30 88 20 Nasal Cannula 2.0 28 05/16/17 16:23 83 05/16/17 16:00 97.5 92 20 130/73 100 Nasal Cannula 3.0 05/16/17 12:25 98.1 94 18 118/65 98 Nasal Cannula 2.0 9/17/17 11:54 82 Laboratory Tests 05/16/17 12:08: White Blood Count 5.4, Red Blood Count 2.55L, Hemoglobin 8.5L, Hematocrit 26.0L , Mean Corpuscular Volume 102H, Mean Corpuscular Hemoglobin 33.2H, Mean Corpuscular Hemoglobin Concent 32.7, Red Cell Distribution Width 14.7, Platelet Count 148L, Mean Platelet Volume 5.7L, Neutrophils (%) (Auto) , Lymphocytes (%) (Auto) , Monocytes (%) (Auto) , Eosinophils (%) (Auto) , Basophils (%) (Auto) , Differential Total Cells Counted 100, Neutrophils % (Manual) 85H, Lymphocytes % (Manual) 4L, Monocytes % (Manual) 11H, Eosinophils % (Manual) 0, Basophils % ( Manual) 0, Band Neutrophils 0, Platelet Estimate DecreasedL, Platelet Morphology Normal, Hypochromasia 2+, Anisocytosis 1+, Target Cells 1+, Tear Drop Cells 1+, Activated Partial Thromboplast Time 33 05/16/17 17:30: Stool Occult Blood Positive 05/16/17 18:35: Activated Partial Thromboplast Time 33 05/17/17 05:35: White Blood Count 4.6L, Red Blood Count 2.25L, Hemoglobin 7.9L, Hematocrit 22.8L , Mean Corpuscular Volume 101H, Mean Corpuscular Hemoglobin 35.1H, Mean Corpuscular Hemoglobin Concent 34.6, Red Cell Distribution Width 14.6, Platelet Count 148L, Mean Platelet Volume 6.8, Neutrophils (%) (Auto) , Lymphocytes (%) ( Auto) , Monocytes (%) (Auto) , Eosinophils (%) (Auto) , Basophils (%) (Auto) , Differential Total Cells Counted 100, Neutrophils % (Manual) 90H, Lymphocytes % (Manual) 5L, Monocytes % (Manual) 5, Eosinophils % (Manual) 0, Basophils % ( Manual) 0, Band Neutrophils 0, Platelet Estimate DecreasedL, Platelet Morphology Normal, Hypochromasia 1+, Anisocytosis 1+, Target Cells 1+, Macrocytosis 1+, Ovalocytes 1+, Reticulocyte Count 2.8H, Haptoglobin 219H, PTT Mixing Study [Pending], APTT Patient/Control Mix [Pending], Mix PTT Incubation Time [Pending], Mix PTT Normal/Saline 1:1 Immediate [Pending], Thrombin Time Normal Plasma [Pending], Fibrinogen 254, Sodium Level 138, Potassium Level 2.8L , Chloride Level 99, Carbon Dioxide Level 22, Anion Gap 17H, Blood Urea Nitrogen 93H, Creatinine 2.8H, Estimat Glomerular Filtration Rate , Glucose Level 115H, Calcium Level 9.6, Iron Level 32L, Total Iron Binding Capacity 105L , Percent Iron Saturation 30, Unsaturated Iron Binding 73L, Ferritin 530H, Total Bilirubin 5.1H, Direct Bilirubin 3.9H, Aspartate Amino Transf (AST/SGOT) 21, Alanine Aminotransferase (ALT/SGPT) 9, Alkaline Phosphatase 155H, Ammonia 12L, Total Protein 5.4L, Albumin 2.6L, Globulin 2.8, Albumin/Globulin Ratio 0.9L , Vitamin B12 Level 1385H, Methylmalonic Acid [Pending], Folate [Pending], Hepatitis A IgM Antibody [Pending], Hepatitis B Surface Antigen [Pending], Hepatitis B Core IgM Antibody [Pending], Hepatitis C Antibody [Pending], HIV (1& 2) Antibody Rapid Negative Height (Feet): 5 Height (Inches): 8.00 Weight (Pounds): 161 General Appearance: no apparent distress EENT: PERRL/EOMI Neck: normal alignment Cardiovascular: normal peripheral pulses Edema: no edema noted Pedal (L), no edema noted Pedal (R) Edema: trace edema 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
[2017-05-17 12:00] VITALS: BP 115/63
--- NOTE | 2017-05-17 14:27 | Wound Care Consultation ---
Wound Assessment Wound Assessment #1: Wound Number: 1 Wound Present on Admission: Yes New Wound: No Status Change of Wound: No Wound Location Body Site Modif: posterior Wound Location Body Site: back Wound Type: ecchymosis - scattered throughout back , mid spine deep asiya colored ecchymosis at high risk for skin breakdown Sharon Test: Does not Sharon Percent of Wound Purple/Maroon: 100 - scattered deep maroon. Wound Drainage Amount: None Wound Drainage Odor: None/Absent Tissue Surrounding Wound: Erythemic - maroon. Wound General Appearance: Reddened Wound Assessment #2: Wound Number: 2 Wound Present on Admission: Yes New Wound: No Status Change of Wound: No Wound Location Body Site Modif: left, upper Wound Location Body Site: arm Wound Type: ecchymosis - scattered ecchymosis and ruptured ecchymosis. Sharon Test: Does not Sharon Wound Thickness: Partial Thickness Percent of Wound [place]/Red: 50 Percent of Wound Purple/Maroon: 50 Wound Drainage Description: Serosanguineous Wound Drainage Amount: Moderate Wound Drainage Odor: None/Absent Tissue Surrounding Wound: Erythemic Wound General Appearance: Reddened, Draining Wound Assessment #3: Wound Number: 3 Wound Present on Admission: Yes New Wound: No Status Change of Wound: No Wound Location Body Site Modif: right, upper Wound Location Body Site: arm Wound Type: ecchymosis - scattered ecchymosis and ruptured ecchymosis Sharon Test: Does not Sharon Wound Thickness: Partial Thickness - scattered Percent of Wound [place]/Red: 50 Percent of Wound Purple/Maroon: 50 Wound Drainage Description: Serosanguineous Wound Drainage Amount: Moderate Wound Drainage Odor: None/Absent Tissue Surrounding Wound: Erythemic Wound General Appearance: Reddened Wound Assessment #4: Wound Number: 4 Wound Present on Admission: Yes New Wound: No Status Change of Wound: No Wound Location Body Site Modif: left, lower, anterior, posterior, medial, lateral Wound Location Body Site: leg Wound Type: ecchymosis Sharon Test: Does not Sharon Percent of Wound Purple/Maroon: 100 - scattered Wound Drainage Amount: None Wound Drainage Odor: None/Absent Tissue Surrounding Wound: Erythemic Wound General Appearance: Reddened Wound Assessment #5: Wound Number: 5 Wound Present on Admission: Yes New Wound: No Status Change of Wound: No Wound Location Body Site Modif: right, lower, anterior, posterior, medial, lateral Wound Location Body Site: leg Wound Type: ecchymosis - scattered Sharon Test: Does not Sharon Percent of Wound Purple/Maroon: 100 Wound Drainage Amount: None Wound Drainage Odor: None/Absent Tissue Surrounding Wound: Erythemic Wound General Appearance: Reddened Wound Assessment #6: Wound Number: 6 Wound Present on Admission: Yes New Wound: No Status Change of Wound: No Wound Location Body Site Modif: left Wound Location Body Site: heel Wound Type: pressure ulcer Sharon Test: Does not Sharon Pressure Ulcer Stage: deep tissue injury Wound Thickness: Full Thickness Wound Length: 4.0 Wound Width: 4.0 Wound Depth: utd Percent of Wound [place]/Red: 20 Percent of Wound Purple/Maroon: 80 Wound Drainage Amount: None Wound Drainage Odor: None/Absent Tissue Surrounding Wound: Erythemic Wound General Appearance: Reddened - maroon Wound Assessment #7: Wound Number: 7 Wound Present on Admission: Yes New Wound: No Status Change of Wound: No Wound Location Body Site Modif: right Wound Location Body Site: toe - 5th Wound Type: scab Sharon Test: Does not Sharon Wound Thickness: Full Thickness Wound Length: 1.0 Wound Width: 1.0 Wound Depth: utd Percent of Wound Black/Brown: 100 Wound Drainage Description: Serosanguineous Wound Drainage Amount: Scant Wound Drainage Odor: None/Absent Tissue Surrounding Wound: Erythemic Wound General Appearance: Reddened Wound Assessment #8: Wound Number: 8 Wound Present on Admission: Yes New Wound: No Status Change of Wound: No Wound Location Body Site Modif: right Wound Location Body Site: heel Wound Type: pressure ulcer Sharon Test: Does not Sharon Pressure Ulcer Stage: I Wound Length: 4.0 Wound Width: 4.0 Percent of Wound [place]/Red: 100 Wound Drainage Amount: None Tissue Surrounding Wound: Erythemic Wound General Appearance: Reddened Wound Assessment #9: Wound Number: 9 Wound Present on Admission: Yes New Wound: No Status Change of Wound: No Wound Location Body Site Modif: right, dorsal Wound Location Body Site: foot Wound Type: other - open wound -etiology unknown. Sharon Test: Does not Sharon Wound Thickness: Full Thickness Wound Length: 2.0 Wound Width: 2.0 Wound Depth: utd Percent of Wound [place]/Red: 20 Percent of Wound Bed Yellow/Wh: 80 - thick yellow scab Wound Drainage Description: Serosanguineous Wound Drainage Amount: Scant Wound Drainage Odor: None/Absent Tissue Surrounding Wound: Erythemic Wound General Appearance: Reddened Wound Assessment #10: Wound Number: 10 Wound Present on Admission: Yes New Wound: No Status Change of Wound: No Wound Location Body Site Modif: mid, posterior - and left side of posterior back Wound Type: other - open wounds scattere possibly ruptured from deep maroon colored ecchymosis over bony area Sharon Test: Does not Sharon Pressure Ulcer Stage: II Wound Thickness: Partial Thickness Percent of Wound [place]/Red: 100 - scattered Wound Drainage Description: Serosanguineous Wound Drainage Amount: Moderate Wound Drainage Odor: None/Absent Tissue Surrounding Wound: Denuded Wound General Appearance: Reddened, Draining Wound Assessment #11: Wound Number: 11 Wound Present on Admission: Yes New Wound: No Status Change of Wound: No Wound Location Body Site: perineal area Wound Type: chemical burn Sharon Test: Does not Sharon Percent of Wound [place]/Red: 100 Wound Drainage Amount: None Wound Drainage Odor: None/Absent Tissue Surrounding Wound: Erythemic Wound General Appearance: Reddened Wound Comment #1 mid posterior back scattered deep maroon ecchymosis. large area covered in ecchymosis. at risk for skin breakdown along spinal area bony areas. #2 left upper extremity scattered ecchymosis and ruptured ecchymosis. #3 right upper extremity scattered ecchymosis and ruptured ecchymosis. #4 left lower extremity( posterior,anterior,medial ,lateral) scattered maroon ecchymosis. #5 right lower extremity( posterior,anterior,medial ,lateral) scattered maroon ecchymosis. #6 left heel deep tissue injury. #7 right fifth toe scab. #8 right heel stage 1. #9 Right dorsal aspect of foot open wound -etiology unknown. #10 mid posterior back extending to left side posterior back scattered stage 2 pressure ulcer. RECOMMENDATION. -Local wound care as ordered. -APPLY low air loss spr mattress for wound and skin management. -Turn and reposition. -Avoid shear and friction. -Keep clean and dry. -Heel protectors. -Offload heels and feet. -Optimize nutrition. -Assess and notify MD for any changes of condition to skin noted. ELISABETH REILLY May 17, 2017 14:27
--- NOTE | 2017-05-17 14:52 | Cardiac Electrophysiology PN ---
Subjective Subjective Cardiology consult dictated [id number] Objective Last 24 Hour Vital Signs Date Time Temp Pulse Resp B/P (MAP) Pulse Ox O2 Delivery O2 Flow Rate FiO2 05/17/17 12:00 97.2 112 18 115/63 98 Nasal Cannula 2.0 05/17/17 08:00 86 05/17/17 08:00 97.9 88 18 123/73 100 Nasal Cannula 2.0 05/17/17 07:54 Nasal Cannula 2.0 28 05/17/17 07:53 86 20 Nasal Cannula 2.0 28 05/17/17 07:53 100 Nasal Cannula 2.0 28 05/17/17 04:00 78 05/17/17 04:00 97.6 86 20 112/55 100 Nasal Cannula 2.0 05/17/17 00:00 97.0 76 20 106/60 98 Room Air 05/17/17 00:00 91 05/16/17 20:00 93 05/16/17 19:59 97.9 84 20 114/65 100 Nasal Cannula 2.0 05/16/17 19:30 96 Nasal Cannula 2.0 28 05/16/17 19:30 Nasal Cannula 2.0 28 05/16/17 19:30 88 20 Nasal Cannula 2.0 28 05/16/17 16:23 83 05/16/17 16:00 97.5 92 20 130/73 100 Nasal Cannula 3.0 Laboratory Tests Test 05/16/17 17:30 05/16/17 18:35 05/17/17 05:35 Stool Occult Blood Positive (NEGATIVE) Activated Partial Thromboplast Time 33 SEC (23-33) White Blood Count 4.6 K/UL (4.8-10.8) L Red Blood Count 2.25 M/UL (4.70-6.10) L Hemoglobin 7.9 G/DL (14.2-18.0) L Hematocrit 22.8 % (42.0-52.0) L Mean Corpuscular Volume 101 FL (80-99) H Mean Corpuscular Hemoglobin 35.1 PG (27.0-31.0) H Mean Corpuscular Hemoglobin Concent 34.6 G/DL (32.0-36.0) Red Cell Distribution Width 14.6 % (11.6-14.8) Platelet Count 148 K/UL (150-450) L Mean Platelet Volume 6.8 FL (6.5-10.1) Neutrophils (%) (Auto) % (45.0-75.0) Lymphocytes (%) (Auto) % (20.0-45.0) Monocytes (%) (Auto) % (1.0-10.0) Eosinophils (%) (Auto) % (0.0-3.0) Basophils (%) (Auto) % (0.0-2.0) Differential Total Cells Counted 100 Neutrophils % (Manual) 90 % (45-75) H Lymphocytes % (Manual) 5 % (20-45) L Monocytes % (Manual) 5 % (1-10) Eosinophils % (Manual) 0 % (0-3) Basophils % (Manual) 0 % (0-2) Band Neutrophils 0 % (0-8) Platelet Estimate Decreased L Platelet Morphology Normal Hypochromasia 1+ Anisocytosis 1+ Macrocytosis 1+ Target Cells 1+ Ovalocytes 1+ Reticulocyte Count 2.8 % (0.0-2.0) H Haptoglobin 219 mg/dL (30-200) H PTT Mixing Study Pending APTT Patient/Control Mix Pending Mix PTT Incubation Time Pending Mix PTT Normal/Saline 1:1 Immediate Pending Thrombin Time Normal Plasma Pending Fibrinogen 254 mg/dL (200-400) Sodium Level 138 mEQ/L (135-145) Potassium Level 2.8 mEQ/L (3.4-4.9) L Chloride Level 99 mEQ/L (98-107) Carbon Dioxide Level 22 mEQ/L (20-30) Anion Gap 17 (5-15) H Blood Urea Nitrogen 93 mg/dL (7-23) H Creatinine 2.8 mg/dL (0.7-1.2) H Estimat Glomerular Filtration Rate mL/min (>60) Glucose Level 115 mg/dL (74-106) H Calcium Level 9.6 mg/dL (8.6-10.2) Iron Level 32 ug/dL (59-158) L Total Iron Binding Capacity 105 ug/dL (250-400) L Percent Iron Saturation 30 % (15-50) Unsaturated Iron Binding 73 ug/dL (112-346) L Ferritin 530 ng/mL (10-230) H Total Bilirubin 5.1 mg/dL (0.0-1.2) H Direct Bilirubin 3.9 mg/dL (0.1-0.3) H Aspartate Amino Transf (AST/SGOT) 21 U/L (5-40) Alanine Aminotransferase (ALT/SGPT) 9 U/L (3-41) Alkaline Phosphatase 155 U/L (40-129) H Ammonia 12 umol/L (16-60) L Total Protein 5.4 g/dL (6.6-8.7) L Albumin 2.6 g/dL (3.5-5.2) L Globulin 2.8 g/dL Albumin/Globulin Ratio 0.9 (1.0-2.7) L Vitamin B12 Level 1385 pg/mL (211-946) H Methylmalonic Acid Pending Folate Pending Hepatitis A IgM Antibody Pending Hepatitis B Surface Antigen Pending Hepatitis B Core IgM Antibody Pending Hepatitis C Antibody Pending HIV (1&2) Antibody Rapid Negative (NEGATIVE) Microbiology Date/Time Source Procedure Growth Status 05/15/17 20:13 Blood Blood Culture - Preliminary NO GROWTH AFTER 24 HOURS Resulted 05/15/17 19:50 Blood Blood Culture - Preliminary NO GROWTH AFTER 24 HOURS Resulted 05/15/17 23:45 Wound Gram Stain - Final Resulted 05/15/17 23:45 Wound Wound Culture - Preliminary Resulted ARLIN MIJARES May 17, 2017 14:52
[2017-05-17 16:00] VITALS: BP 121/62
--- NOTE | 2017-05-17 16:45 | Infectious Diseases Prog Note ---
Assessment/Plan Problems: (1) HCAP (healthcare-associated pneumonia) Assessment & Plan: on cefepime and clindamycin empirically, monitor CXR, await sputum culture (2) Sepsis Assessment & Plan: due to the above, await blood culture, continue cefepime with clindamycin (3) Ascites Assessment & Plan: recurrent, due to liver cirrhosis, recommend paracentesis to rule out SBP, and GI consult (4) Anasarca Assessment & Plan: due to liver cirrhosis, continue diuresis , monitor daily weight (5) COPD exacerbation Assessment & Plan: due to pneumonia, continue inhalers, and oxygen, monitor CXR (6) ARF (acute renal failure) Assessment & Plan: on top of 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, nephrology is following Subjective Constitutional: Reports: no symptoms HEENT: Reports: no symptoms Respiratory: Reports: no symptoms Breasts: Reports: no symptoms Gastrointestinal/Abdominal: Reports: bloating Genitourinary: Reports: no symptoms Neurologic: Reports: no symptoms Psychiatric: Reports: no symptoms Skin: Reports: no symptoms Endocrine: Reports: no symptoms Hematologic: Reports: no symptoms Allergies: Coded Allergies: No Known Allergies (Unverified , 05/15/17) Objective Vital Signs Last 24 Hour Vital Signs Date Time Temp Pulse Resp B/P (MAP) Pulse Ox O2 Delivery O2 Flow Rate FiO2 05/17/17 16:00 97.2 84 16 121/62 100 Nasal Cannula 3.0 05/17/17 12:00 74 05/17/17 12:00 97.2 112 18 115/63 98 Nasal Cannula 2.0 05/17/17 08:00 86 05/17/17 08:00 97.9 88 18 123/73 100 Nasal Cannula 2.0 05/17/17 07:54 Nasal Cannula 2.0 28 05/17/17 07:53 86 20 Nasal Cannula 2.0 28 05/17/17 07:53 100 Nasal Cannula 2.0 28 05/17/17 04:00 78 05/17/17 04:00 97.6 86 20 112/55 100 Nasal Cannula 2.0 05/17/17 00:00 97.0 76 20 106/60 98 Room Air 05/17/17 00:00 91 05/16/17 20:00 93 05/16/17 19:59 97.9 84 20 114/65 100 Nasal Cannula 2.0 05/16/17 19:30 96 Nasal Cannula 2.0 28 05/16/17 19:30 Nasal Cannula 2.0 28 05/16/17 19:30 88 20 Nasal Cannula 2.0 28 Height (Feet): 5 Height (Inches): 8.00 Weight (Pounds): 161 General Appearance: WD/WN, no acute distress HEENT: normocephalic, atraumatic, anicteric, mucous membranes moist, PERRL, EOMI, pharynx normal, supple, no JVD Respiratory/Chest: chest wall non-tender, no respiratory distress, no accessory muscle use, decreased breath sounds, crackles/rales Cardiovascular: normal peripheral pulses, normal rate, regular rhythm, no gallop/murmur, no JVD Abdomen: normal bowel sounds, soft, non tender, no organomegaly, non distended , no mass, no scars Extremities: no cyanosis, no clubbing Skin: no rash, no lesions, ulcers Neurologic/Psychiatric: alert, oriented x 3 Lymphatic: no neck adenopathy, no groin adenopathy Microbiology Date/Time Source Procedure Growth Status 05/15/17 20:13 Blood Blood Culture - Preliminary NO GROWTH AFTER 24 HOURS Resulted 05/15/17 19:50 Blood Blood Culture - Preliminary NO GROWTH AFTER 24 HOURS Resulted 05/15/17 23:45 Wound Gram Stain - Final Resulted 05/15/17 23:45 Wound Wound Culture - Preliminary Resulted Laboratory Tests Test 05/16/17 17:30 05/16/17 18:35 05/17/17 05:35 Stool Occult Blood Positive (NEGATIVE) Activated Partial Thromboplast Time 33 SEC (23-33) White Blood Count 4.6 K/UL (4.8-10.8) L Red Blood Count 2.25 M/UL (4.70-6.10) L Hemoglobin 7.9 G/DL (14.2-18.0) L Hematocrit 22.8 % (42.0-52.0) L Mean Corpuscular Volume 101 FL (80-99) H Mean Corpuscular Hemoglobin 35.1 PG (27.0-31.0) H Mean Corpuscular Hemoglobin Concent 34.6 G/DL (32.0-36.0) Red Cell Distribution Width 14.6 % (11.6-14.8) Platelet Count 148 K/UL (150-450) L Mean Platelet Volume 6.8 FL (6.5-10.1) Neutrophils (%) (Auto) % (45.0-75.0) Lymphocytes (%) (Auto) % (20.0-45.0) Monocytes (%) (Auto) % (1.0-10.0) Eosinophils (%) (Auto) % (0.0-3.0) Basophils (%) (Auto) % (0.0-2.0) Differential Total Cells Counted 100 Neutrophils % (Manual) 90 % (45-75) H Lymphocytes % (Manual) 5 % (20-45) L Monocytes % (Manual) 5 % (1-10) Eosinophils % (Manual) 0 % (0-3) Basophils % (Manual) 0 % (0-2) Band Neutrophils 0 % (0-8) Platelet Estimate Decreased L Platelet Morphology Normal Hypochromasia 1+ Anisocytosis 1+ Macrocytosis 1+ Target Cells 1+ Ovalocytes 1+ Reticulocyte Count 2.8 % (0.0-2.0) H Haptoglobin 219 mg/dL (30-200) H PTT Mixing Study Pending APTT Patient/Control Mix Pending Mix PTT Incubation Time Pending Mix PTT Normal/Saline 1:1 Immediate Pending Thrombin Time Normal Plasma Pending Fibrinogen 254 mg/dL (200-400) Sodium Level 138 mEQ/L (135-145) Potassium Level 2.8 mEQ/L (3.4-4.9) L Chloride Level 99 mEQ/L (98-107) Carbon Dioxide Level 22 mEQ/L (20-30) Anion Gap 17 (5-15) H Blood Urea Nitrogen 93 mg/dL (7-23) H Creatinine 2.8 mg/dL (0.7-1.2) H Estimat Glomerular Filtration Rate mL/min (>60) Glucose Level 115 mg/dL (74-106) H Calcium Level 9.6 mg/dL (8.6-10.2) Iron Level 32 ug/dL (59-158) L Total Iron Binding Capacity 105 ug/dL (250-400) L Percent Iron Saturation 30 % (15-50) Unsaturated Iron Binding 73 ug/dL (112-346) L Ferritin 530 ng/mL (10-230) H Total Bilirubin 5.1 mg/dL (0.0-1.2) H Direct Bilirubin 3.9 mg/dL (0.1-0.3) H Aspartate Amino Transf (AST/SGOT) 21 U/L (5-40) Alanine Aminotransferase (ALT/SGPT) 9 U/L (3-41) Alkaline Phosphatase 155 U/L (40-129) H Ammonia 12 umol/L (16-60) L Total Protein 5.4 g/dL (6.6-8.7) L Albumin 2.6 g/dL (3.5-5.2) L Globulin 2.8 g/dL Albumin/Globulin Ratio 0.9 (1.0-2.7) L Vitamin B12 Level 1385 pg/mL (211-946) H Methylmalonic Acid Pending Folate Pending Hepatitis A IgM Antibody Pending Hepatitis B Surface Antigen Pending Hepatitis B Core IgM Antibody Pending Hepatitis C Antibody Pending HIV (1&2) Antibody Rapid Negative (NEGATIVE) Current Medications Medications (Trade) Dose Ordered Sig/Jenifer Route PRN Reason Start Time Stop Time Status Last Admin Dose Admin Acetaminophen (Tylenol) 500 mg EVERY 6 HOURS PRN ORAL Mild Pain/Temp > 100.5 05/16/17 00:30 06/15/17 00:29 05/17/17 09:59 Al Hydroxide/Mg Hydroxide (Mylanta) 30 ml FOUR TIMES A DAY PRN ORAL For Pain 05/16/17 00:30 06/15/17 00:29 Albuterol Sulfate (Proventil) 2.5 mg EVERY 4 HOURS PRN HHN Shortness of Breath 05/16/17 00:30 05/21/17 00:29 Aspirin (ASA) 81 mg DAILY ORAL 05/16/17 09:00 06/15/17 08:59 05/16/17 09:28 Atorvastatin Calcium (Lipitor) 20 mg BEDTIME ORAL 05/16/17 21:00 06/15/17 20:59 05/16/17 20:39 Cefepime HCl 2 gm/ Dextrose 110 ml @ 220 mls/hr Q24H IVPB 05/16/17 11:00 05/23/17 10:59 05/17/17 11:37 Clindamycin HCl/ Dextrose 50 ml @ 100 mls/hr Q8H IV 05/16/17 12:00 05/23/17 11:59 05/17/17 12:47 Dextrose (Dextrose 50%) STAT PRN IV Hypoglycemia 05/16/17 00:30 06/15/17 00:29 Insulin Aspart (NovoLOG) BEFORE MEALS AND HS SUBQ 05/16/17 06:30 06/15/17 06:29 05/16/17 17:16 Metoprolol Tartrate (Lopressor) 25 mg Q12HR ORAL 05/17/17 21:00 06/16/17 20:59 Potassium Chloride 100 ml @ 100 mls/hr Q1HR IVPB 05/17/17 16:00 05/17/17 19:59 05/17/17 16:01 Axel Jensen M.D. May 17, 2017 16:45
--- NOTE | 2017-05-17 18:03 | Nephrology Progress Note ---
Assessment/Plan Problem List: (1) Renal failure (ARF), acute on chronic (2) COPD exacerbation (3) Weakness (4) Ascites (5) Sepsis (6) HTN (hypertension) (7) Liver cirrhosis (8) Congestive heart failure (CHF) Plan Replace K, repeat in am 24hr urine collection for creatinine clearance CT abdomen and pelvis Monitor Lytes, correct prn s/p 1 UNIT prbc. Monitor H&H, transfuse prn Hematology following, will follow up with rec Cardiology following Subjective ROS Limited/Unobtainable: Yes Subjective In bed, in no apparent distress, family at bedside Objective Objective Last 24 Hour Vital Signs Date Time Temp Pulse Resp B/P (MAP) Pulse Ox O2 Delivery O2 Flow Rate FiO2 05/17/17 16:00 97.2 84 16 121/62 100 Nasal Cannula 3.0 05/17/17 16:00 83 05/17/17 12:00 74 05/17/17 12:00 97.2 112 18 115/63 98 Nasal Cannula 2.0 05/17/17 08:00 86 05/17/17 08:00 97.9 88 18 123/73 100 Nasal Cannula 2.0 05/17/17 07:54 Nasal Cannula 2.0 28 05/17/17 07:53 86 20 Nasal Cannula 2.0 28 05/17/17 07:53 100 Nasal Cannula 2.0 28 05/17/17 04:00 78 05/17/17 04:00 97.6 86 20 112/55 100 Nasal Cannula 2.0 05/17/17 00:00 97.0 76 20 106/60 98 Room Air 05/17/17 00:00 91 05/16/17 20:00 93 05/16/17 19:59 97.9 84 20 114/65 100 Nasal Cannula 2.0 05/16/17 19:30 96 Nasal Cannula 2.0 28 05/16/17 19:30 Nasal Cannula 2.0 28 05/16/17 19:30 88 20 Nasal Cannula 2.0 28 Intake and Output 05/17/17 05/18/17 19:00 07:00 Intake Total 260 ml Balance 260 ml IV Total 260 ml Laboratory Tests 05/16/17 18:35: Activated Partial Thromboplast Time 33 05/17/17 05:35: White Blood Count 4.6L, Red Blood Count 2.25L, Hemoglobin 7.9L, Hematocrit 22.8L , Mean Corpuscular Volume 101H, Mean Corpuscular Hemoglobin 35.1H, Mean Corpuscular Hemoglobin Concent 34.6, Red Cell Distribution Width 14.6, Platelet Count 148L, Mean Platelet Volume 6.8, Neutrophils (%) (Auto) , Lymphocytes (%) ( Auto) , Monocytes (%) (Auto) , Eosinophils (%) (Auto) , Basophils (%) (Auto) , Differential Total Cells Counted 100, Neutrophils % (Manual) 90H, Lymphocytes % (Manual) 5L, Monocytes % (Manual) 5, Eosinophils % (Manual) 0, Basophils % ( Manual) 0, Band Neutrophils 0, Platelet Estimate DecreasedL, Platelet Morphology Normal, Hypochromasia 1+, Anisocytosis 1+, Macrocytosis 1+, Target Cells 1+, Ovalocytes 1+, Reticulocyte Count 2.8H, Haptoglobin 219H, PTT Mixing Study [Pending], APTT Patient/Control Mix [Pending], Mix PTT Incubation Time [ Pending], Mix PTT Normal/Saline 1:1 Immediate [Pending], Thrombin Time Normal Plasma [Pending], Fibrinogen 254, Sodium Level 138, Potassium Level 2.8L, Chloride Level 99, Carbon Dioxide Level 22, Anion Gap 17H, Blood Urea Nitrogen 93H, Creatinine 2.8H, Estimat Glomerular Filtration Rate , Glucose Level 115H, Calcium Level 9.6, Iron Level 32L, Total Iron Binding Capacity 105L, Percent Iron Saturation 30, Unsaturated Iron Binding 73L, Ferritin 530H, Total Bilirubin 5.1H, Direct Bilirubin 3.9H, Aspartate Amino Transf (AST/SGOT) 21, Alanine Aminotransferase (ALT/SGPT) 9, Alkaline Phosphatase 155H, Ammonia 12L, Total Protein 5.4L, Albumin 2.6L, Globulin 2.8, Albumin/Globulin Ratio 0.9L, Vitamin B12 Level 1385H, Methylmalonic Acid [Pending], Folate [Pending], Hepatitis A IgM Antibody [Pending], Hepatitis B Surface Antigen [Pending], Hepatitis B Core IgM Antibody [Pending], Hepatitis C Antibody [Pending], HIV (1& 2) Antibody Rapid Negative Height (Feet): 5 Height (Inches): 8.00 Weight (Pounds): 161 General Appearance: no apparent distress, alert EENT: PERRL/EOMI, normal ENT inspection Neck: non-tender Cardiovascular: normal rate, no JVD Respiratory/Chest: decreased breath sounds Abdomen: hypoactive bowel sounds, distended, tender Extremities: non-tender Neurologic: motor weakness, disoriented Ada Weston N.P. May 17, 2017 18:03
[2017-05-17 20:00] VITALS: BP 100/72
[2017-05-17] MEDS: Atorvastatin 20mg tab ORAL SCH (20:42)
[2017-05-17] MEDS: Metoprolol 25mg tab ORAL SCH (20:43)
[2017-05-18] VITALS (14 sets, daily range): BP systolic 107–163; BP diastolic 62–87
[2017-05-18] MEDS: Clindamycin 600mg 50 ML IV SCH ×3 (03:22→20:14)
[2017-05-18] MEDS: NovoLOG Insulin Flexpen SUBQ SCH ×4 (06:04→21:31)
[2017-05-18 07:07] LABS: MEAN CORPUSCULAR HEMOGLOBIN 34.4 PG (27.0-31.0); MEAN CORPUSCULAR VOLUME 98 FL (80-99); MEAN PLATELET VOLUME 6.7 FL (6.5-10.1); PLATELET COUNT 132 K/UL (150-450); RED BLOOD COUNT 2.79 M/UL (4.70-6.10); RED CELL DISTRIBUTION WIDTH 16.7 % (11.6-14.8)
--- NOTE | 2017-05-18 07:15 | Consultation ---
DATE OF CONSULTATION: 05/17/2017 CARDIOLOGY CONSULTATION CONSULTING PHYSICIAN: Kosta Joya M.D. REFERRING PHYSICIAN: Rickie Nair M.D. Reason For Consultation: Management of hypertension, hyperlipidemia, as well as atrial fibrillation. History Of Present Illness: The patient is an 81-year-old gentleman with history of hypertension and COPD, was brought from [facility] for generalized weakness. The patient was also hypoxic on room air. The patient had recent pneumonia and was still on antibiotics. Next day, the patient was found to be in atrial fibrillation. The patient was admitted to telemetry and a Cardiology consultation was obtained for further evaluation and management. PAST MEDICAL HISTORY: 1. Hypertension. 2. Chronic obstructive pulmonary disease. 3. Dementia. Medications: At [facility] include aspirin, ascorbic acid, Lipitor, and zinc. SOCIAL HISTORY: He does not smoke or drink alcohol. FAMILY HISTORY: Noncontributory. Review Of Systems: Negative other than what is mentioned in the history of present illness. PHYSICAL EXAMINATION: Vital Signs: Blood pressure is , pulse 110, respirations 18, and temperature 97.2. HEAD AND NECK: Shows no JVD. LUNGS: Decreased breath sounds with coarse rhonchi. CARDIOVASCULAR: Shows irregular S1 and S2 with no gallop or murmur. ABDOMEN: Soft. EXTREMITIES: No pitting edema. He has an ulcer in his heels. Laboratory Data: White count 4.2, hemoglobin 7.9, hematocrit 22.8, and platelet count 148,000. Sodium 138, potassium is 2.8, BUN of 92, creatinine 2.8, and glucose of 115. His troponin is negative, and BNP is 54,000. ASSESSMENT AND PLAN: 1. Atrial fibrillation. The rate is slightly higher likely due to patient's severe anemia. The patient is getting blood transfusion. For that reason, I will start the patient on low-dose metoprolol 25 mg twice a day and watch the patient closely. Obviously, in view of severe anemia and possible gastrointestinal bleed, the patient is off anticoagulation. 2. Hypertension. We will start the patient on low-dose beta-bertram. 3. Hyperlipidemia, on Lipitor. 4. Severe anemia. The patient is getting blood transfusion. The etiology is not clear at this time. Further evaluation by Dr. Hu. 5. Deep vein thrombosis of superficial femoral vein of the lower extremities. Anticoagulation is contraindicated for recurrent and worsening anemia. The patient will be undergoing inferior vena cava filter placement. 6. Liver cirrhosis. 7. Ascites secondary to cirrhosis. Thank you very much Dr. Nair for allowing me to participate in the care of this patient. Please do not hesitate to contact me for any questions regarding my evaluation. Kosta Joya M.D. DR: KALIN JOB#: [id number] CC:
[2017-05-18 07:37] LABS: ANION GAP 19 (5-15); CALCIUM 7.9 mg/dL (8.6-10.2); CARBON DIOXIDE 20 mEQ/L (20-30); CHLORIDE 97 mEQ/L (98-107); CREATININE 2.5 mg/dL (0.7-1.2); HEMOLYSIS 11; POTASSIUM 4.4 mEQ/L (3.4-4.9); SODIUM 136 mEQ/L (135-145); TROPONIN I < 0.30 ng/mL (<=0.30)
[2017-05-18] MEDS: Aspirin Baby 81mg ORAL SCH (08:41)
[2017-05-18] MEDS: Metoprolol 25mg tab ORAL SCH (08:41)
[2017-05-18 08:43] LABS: ANISOCYTOSIS 1+; BAND NEUTROPHILS % (MANUAL) 0 % (0-8); BASOPHILS % (MANUAL) 0 % (0-2); EOSINOPHILS % (MANUAL) 0 % (0-3); HYPOCHROMASIA 1+; LYMPHOCYTES % (MANUAL) 2 % (20-45); NEUTROPHILS % (MANUAL) 89 % (45-75); PLATELET ESTIMATE DECREASED; PLATELET MORPHOLOGY NORMAL; TOTAL CELLS COUNTED 100
[2017-05-18 08:44] LABS: MACROCYTES 1+
[2017-05-18] MEDS: Cefepime HCl 2 GM in D5W 110 ML IVPB SCH (10:29)
[2017-05-18] MEDS ORDERED: Lidocaine 1% Plain 30 ml INJ ONE (13:15)
--- NOTE | 2017-05-18 14:31 | Pre-Procedure Note/Attestation ---
Pre-Procedure Note/Attestation Complete Prior to Procedure Planned Procedure: not applicable Procedure Narrative: Inferior vena cava filter placement Indications for Procedure Pre-Operative Diagnosis: DVT with contraindication to anticoagulation Attestation I attest that I discussed the nature of the procedure; its benefits; risks and complications; and alternatives (and the risks and benefits of such alternatives ), prior to the procedure, with the patient (or the patient's legal customer development representative). I attest that, if there was a reasonable possibility of needing a blood transfusion, the patient (or the patient's legal customer development representative) was given the [facility] standardized written summary, pursuant to the Oliverio Vanessa Blood Safety Act ([place] Health and Safety Code # 1645, as amended). I attest that I re-evaluated the patient just prior to the surgery and that there has been no change in the patient's H&P, except as documented below: D/W patient's daughter immediately prior to procedure GLENNA CARVER M.D. May 18, 2017 14:31
[2017-05-18] MEDS ORDERED: Heparin 2000 units/Ns 1000ml INJ ONE (15:00)
[2017-05-18] MEDS ORDERED: Heparin Sod 1000 units/ml 10ml INJ ONE (15:00)
[2017-05-18] MEDS ORDERED: NS 275ml ONE (15:15)
[2017-05-18] MEDS ORDERED: Tubing IV Secondary IV ONE (15:15)
[2017-05-18] MEDS ORDERED: Tubing Blood Filter IV ONE (15:15)
--- NOTE | 2017-05-18 15:28 | Infectious Diseases Prog Note ---
Assessment/Plan Problems: (1) HCAP (healthcare-associated pneumonia) Assessment & Plan: continue cefepime and clindamycin empirically, monitor CXR, await sputum culture (2) Sepsis Assessment & Plan: due to the above, await blood culture, continue cefepime with clindamycin (3) Ascites Assessment & Plan: recurrent, due to liver cirrhosis, recommend paracentesis to rule out SBP, and GI consult (4) Anasarca Assessment & Plan: due to liver cirrhosis, continue diuresis , monitor daily weight (5) COPD exacerbation Assessment & Plan: due to pneumonia, continue inhalers, and oxygen, monitor CXR (6) ARF (acute renal failure) Assessment & Plan: on top of 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, nephrology is following Subjective Constitutional: Reports: no symptoms HEENT: Reports: no symptoms Respiratory: Reports: no symptoms Breasts: Reports: no symptoms Cardiovascular: Reports: no symptoms Gastrointestinal/Abdominal: Reports: no symptoms Genitourinary: Reports: no symptoms Neurologic: Reports: no symptoms Psychiatric: Reports: no symptoms Skin: Reports: no symptoms Endocrine: Reports: no symptoms Hematologic: Reports: no symptoms Allergies: Coded Allergies: No Known Allergies (Unverified , 05/15/17) Objective Vital Signs Last 24 Hour Vital Signs Date Time Temp Pulse Resp B/P (MAP) Pulse Ox O2 Delivery O2 Flow Rate FiO2 05/18/17 15:00 77 22 122/68 98 Nasal Cannula 2.0 05/18/17 14:55 76 16 134/72 99 Nasal Cannula 2.0 05/18/17 14:50 75 20 125/80 100 Nasal Cannula 2.0 05/18/17 14:45 75 22 146/63 100 Nasal Cannula 2.0 05/18/17 13:59 80 25 2.0 05/18/17 12:00 97.9 74 20 146/71 99 Nasal Cannula 2.0 05/18/17 08:41 84 140/70 05/18/17 08:00 97.7 84 20 140/70 96 Nasal Cannula 2.0 05/18/17 07:48 Nasal Cannula 2.0 05/18/17 07:48 98 Nasal Cannula 2.0 05/18/17 07:45 81 20 Nasal Cannula 2.0 28 05/18/17 04:00 97.0 77 20 163/87 95 Nasal Cannula 2.0 05/18/17 04:00 79 05/18/17 00:00 85 05/17/17 20:43 100 100/72 05/17/17 20:00 81 05/17/17 20:00 97.7 100 20 100/72 100 Nasal Cannula 2.0 05/17/17 19:30 100 Nasal Cannula 2.0 28 05/17/17 19:30 94 20 Nasal Cannula 2.0 28 05/17/17 19:30 Nasal Cannula 2.0 28 05/17/17 16:00 97.2 84 16 121/62 100 Nasal Cannula 3.0 05/17/17 16:00 83 Height (Feet): 5 Height (Inches): 8.00 Weight (Pounds): 161 General Appearance: WD/WN, no acute distress HEENT: normocephalic, atraumatic, anicteric, mucous membranes moist, PERRL, EOMI, pharynx normal, supple, no JVD Respiratory/Chest: chest wall non-tender, lungs clear, normal breath sounds, no respiratory distress, no accessory muscle use Cardiovascular: normal peripheral pulses, normal rate, regular rhythm, no gallop/murmur, no JVD Abdomen: normal bowel sounds, soft, non tender, no organomegaly, non distended , no mass, no scars Extremities: no cyanosis, no clubbing Skin: no rash, no lesions, ulcers Neurologic/Psychiatric: alert, oriented x 3, responsive Microbiology Date/Time Source Procedure Growth Status 05/15/17 20:13 Blood Blood Culture - Preliminary NO GROWTH AFTER 48 HOURS Resulted 05/15/17 19:50 Blood Blood Culture - Preliminary NO GROWTH AFTER 48 HOURS Resulted 05/15/17 23:45 Wound Gram Stain - Final Resulted 05/15/17 23:45 Wound Wound Culture - Preliminary Resulted 05/15/17 21:50 Nasal Nares MRSA Culture - Final NO METHICILLIN RESISTANT STAPH AUREUS... Complete 05/15/17 21:50 Rectum VRE Culture - Final Enterococcus Faecium - Vre Complete Laboratory Tests Test 05/18/17 04:55 White Blood Count 5.0 K/UL (4.8-10.8) Red Blood Count 2.79 M/UL (4.70-6.10) L Hemoglobin 9.6 G/DL (14.2-18.0) L Hematocrit 27.5 % (42.0-52.0) L Mean Corpuscular Volume 98 FL (80-99) Mean Corpuscular Hemoglobin 34.4 PG (27.0-31.0) H Mean Corpuscular Hemoglobin Concent 35.0 G/DL (32.0-36.0) Red Cell Distribution Width 16.7 % (11.6-14.8) H Platelet Count 132 K/UL (150-450) L Mean Platelet Volume 6.7 FL (6.5-10.1) Neutrophils (%) (Auto) % (45.0-75.0) Lymphocytes (%) (Auto) % (20.0-45.0) Monocytes (%) (Auto) % (1.0-10.0) Eosinophils (%) (Auto) % (0.0-3.0) Basophils (%) (Auto) % (0.0-2.0) Differential Total Cells Counted 100 Neutrophils % (Manual) 89 % (45-75) H Lymphocytes % (Manual) 2 % (20-45) L Monocytes % (Manual) 9 % (1-10) Eosinophils % (Manual) 0 % (0-3) Basophils % (Manual) 0 % (0-2) Band Neutrophils 0 % (0-8) Platelet Estimate Decreased L Platelet Morphology Normal Hypochromasia 1+ Anisocytosis 1+ Macrocytosis 1+ Sodium Level 136 mEQ/L (135-145) Potassium Level 4.4 mEQ/L (3.4-4.9) # Chloride Level 97 mEQ/L (98-107) L Carbon Dioxide Level 20 mEQ/L (20-30) Anion Gap 19 (5-15) H Blood Urea Nitrogen 93 mg/dL (7-23) H Creatinine 2.5 mg/dL (0.7-1.2) H Estimat Glomerular Filtration Rate mL/min (>60) Glucose Level 166 mg/dL (74-106) H Calcium Level 7.9 mg/dL (8.6-10.2) L Troponin I < 0.30 ng/mL (<=0.30) Pro-B-Type Natriuretic Peptide 48249 pg/mL (0-450) H Carcinoembryonic Antigen 9.0 ng/mL H Current Medications Medications (Trade) Dose Ordered Sig/Jenifer Route PRN Reason Start Time Stop Time Status Last Admin Dose Admin Acetaminophen (Tylenol) 500 mg EVERY 6 HOURS PRN ORAL Mild Pain/Temp > 100.5 05/16/17 00:30 06/15/17 00:29 05/17/17 16:48 Al Hydroxide/Mg Hydroxide (Mylanta) 30 ml FOUR TIMES A DAY PRN ORAL For Pain 05/16/17 00:30 06/15/17 00:29 Albuterol Sulfate (Proventil) 2.5 mg EVERY 4 HOURS PRN HHN Shortness of Breath 05/16/17 00:30 05/21/17 00:29 Aspirin (ASA) 81 mg DAILY ORAL 05/16/17 09:00 06/15/17 08:59 05/18/17 08:41 Atorvastatin Calcium (Lipitor) 20 mg BEDTIME ORAL 05/16/17 21:00 06/15/17 20:59 05/17/17 20:42 Cefepime HCl 2 gm/ Dextrose 110 ml @ 220 mls/hr Q24H IVPB 05/16/17 11:00 05/23/17 10:59 05/18/17 10:29 Clindamycin HCl/ Dextrose 50 ml @ 100 mls/hr Q8H IV 05/16/17 12:00 05/23/17 11:59 05/18/17 11:50 Dextrose (Dextrose 50%) STAT PRN IV Hypoglycemia 05/16/17 00:30 06/15/17 00:29 Insulin Aspart (NovoLOG) BEFORE MEALS AND HS SUBQ 05/16/17 06:30 06/15/17 06:29 05/18/17 06:04 Metoprolol Tartrate (Lopressor) 25 mg Q12HR ORAL 05/17/17 21:00 06/16/17 20:59 05/18/17 08:41 Axel Jensen M.D. May 18, 2017 15:28
--- NOTE | 2017-05-18 15:43 | Brief Operative Note ---
Immediate Post Operative Note Operative Note Pre-op Diagnosis: DVT with contraindication to anticoagulation Procedure: IVC filter Post-op Diagnosis: same as pre-op Findings: consistent w/pre-op dx studies Surgeon: Jeff Goodwin Anesthesia: local Specimen: none Complications: none Fluids: 24 ml contrast Implant(s) used?: Yes - venatech [facility] IVC permanent filter GLENNA GOODWIN M.D. May 18, 2017 15:43
--- NOTE | 2017-05-18 16:32 | Diagnostic Imaging Report ---
Indications: Deep venous thrombosis, contraindication to anticoagulation Technique: Case discussed with Dr. Hu. 81-year-old patient with documented acute deep venous thrombosis, anemia, indicating anticoagulation. Dr. Hu indicated preference for a permanent inferior vena cava filter due to patient's age and comorbidities. Informed consent obtained from patient's prior to commencement of the procedure. Total sterile technique, including sterile probe cover and sterile gel, sterile gloves, hand hygiene, hat, mask,, sterile gown, large sterile drape, and preparation with 2% chlorhexidine utilized. Local anesthesia with 1% lidocaine. Ultrasound reveals patent compressible right internal jugular vein. Under real-time ultrasound guidance, puncture right internal jugular vein, passage of a guidewire, into the inferior vena cava, over which was passed a pigtail marker catheter. This was directed to the level of the iliac venous confluence.. An inferior venacavogram performed, using machine injection of contrast. The images were reviewed. The position of the renal veins was determined. The catheter was then exchanged for the introducer assembly of the Venatech permanent inferior vena cava filter. The introducer assembly was advanced further into the inferior vena cava over a guidewire, and the guidewire and dilator were removed. The filter was passed into the into the sheath. It was then positioned into the appropriate position. The filter was then deployed by unsheathing it. The filter introducer was removed. Restored fluoroscopic image documents satisfactory filter position. Due to pre-existing renal insufficiency, a inferior venacavogram was not performed, in order to limit the amount of contrast given. The filter position was deemed acceptable. The sheath was removed. Pressure held on the right neck until hemostasis was achieved. The patient tolerated procedure well, without immediate complication. Total fluoroscopy time 1.9 minutes Total dose area product 581 [id number] Comparison: None Findings: Inferior venacavogram demonstrates normal caliber inferior vena cava. Single renal veins. No intracaval thrombus. Completion radiograph documents satisfactory filter position, tip just below the renal vein orifices, no significant tilt. Impression: Successful placement of Venatech LGM permanent infrarenal inferior vena cava filter, as above.
--- NOTE | 2017-05-18 16:40 | Diagnostic Imaging Report ---
Indication: Abdominal distention, abnormal liver function tests Technique: Solis-scale and duplex images of the upper abdomen were obtained Comparison: None Findings: Large amount of ascites fluid is present. Gallbladder demonstrates gallstones. The gallbladder wall is thickened, measuring 6 mm thick. Sonographic Bowen's sign is negative. Common bile duct measures 5 mm in diameter. No intrahepatic biliary ductal dilatation. Liver demonstrates coarsened echogenicity. It appears atrophic. There is considerable surface micro-nodularity noted. Portal vein and hepatic veins are patent. Pancreas is unremarkable. The spleen is enlarged, measures 13.5 cm long axis dimension. A 16 mm hypoechoic lesion is seen within the spleen. Left kidney measures 9.9 cm in length. Right kidney measures 8.8 cm length. Both kidneys demonstrate normal echogenicity. There is equivocal fullness of the left renal collecting system. No right hydronephrosis. No focal abnormality . The bladder is mildly distended. Non-aneurysmal abdominal aorta . There is edema of the abdominal wall in the bilateral flank regions. There is trace pleural fluid Impression: Evidence of hepatic cirrhosis, with atrophic liver, coarsened hepatic echogenicity, surface micro-nodularity Large amount of ascites fluid, presumably related to the above Splenomegaly, likely related to the above Cholelithiasis Gallbladder wall thickening. Suspect related to the hemodynamic derangements related to the hepatic cirrhosis. However, possibility of acute cholecystitis should also be considered. Hepatobiliary nuclear scanning may be useful for further evaluation if there is high clinical suspicion Nonspecific hypoechoic splenic lesion. Most likely a small cyst or an infarct, but other pathology not excludable. Trace right pleural effusion Nonspecific mild fullness to the left renal collecting system. Could be related to bladder distention
--- NOTE | 2017-05-18 17:07 | Cardiac Electrophysiology PN ---
Assessment/Plan Assessment/Plan 1. Atrial fibrillation. Decrease Lopressor to 12.5 bid as was as moose as 39 earlier.Patient is off anticoagulation for severe anemia. 2. Hypertension. On beta-bertram. 3. Hyperlipidemia, on Lipitor. 4. Severe anemia. S/P blood transfusion. Further evaluation by Dr. Hu. 5. Deep vein thrombosis of superficial femoral vein of the lower extremities. Anticoagulation is contraindicated for recurrent and worsening anemia. S/P inferior vena cava filter placement. 6. Liver cirrhosis. 7. Ascites secondary to cirrhosis. Subjective Subjective Had IVC filter placement. HR went as low as 36 in atrial fib. RN and family at bedside. Objective Last 24 Hour Vital Signs Date Time Temp Pulse Resp B/P (MAP) Pulse Ox O2 Delivery O2 Flow Rate FiO2 05/18/17 16:25 71 107/64 100 05/18/17 15:55 68 20 123/65 100 Nasal Cannula 2.0 05/18/17 15:40 97.1 65 20 117/72 98 Nasal Cannula 3.0 05/18/17 15:00 77 22 122/68 98 Nasal Cannula 2.0 05/18/17 14:55 76 16 134/72 99 Nasal Cannula 2.0 05/18/17 14:50 75 20 125/80 100 Nasal Cannula 2.0 05/18/17 14:45 75 22 146/63 100 Nasal Cannula 2.0 05/18/17 13:59 80 25 2.0 05/18/17 12:00 97.9 74 20 146/71 99 Nasal Cannula 2.0 05/18/17 11:40 76 05/18/17 08:41 84 140/70 05/18/17 08:00 97.7 84 20 140/70 96 Nasal Cannula 2.0 05/18/17 07:50 88 05/18/17 07:48 Nasal Cannula 2.0 28 05/18/17 07:48 98 Nasal Cannula 2.0 28 05/18/17 07:45 81 20 Nasal Cannula 2.0 28 05/18/17 04:00 97.0 77 20 163/87 95 Nasal Cannula 2.0 05/18/17 04:00 79 05/18/17 00:00 85 05/17/17 20:43 100 100/72 05/17/17 20:00 81 05/17/17 20:00 97.7 100 20 100/72 100 Nasal Cannula 2.0 05/17/17 19:30 100 Nasal Cannula 2.0 28 05/17/17 19:30 94 20 Nasal Cannula 2.0 28 05/17/17 19:30 Nasal Cannula 2.0 28 Intake and Output 05/18/17 05/19/17 19:00 07:00 Intake Total 210 ml Balance 210 ml IV Total 210 ml Laboratory Tests Test 05/18/17 04:55 White Blood Count 5.0 K/UL (4.8-10.8) Red Blood Count 2.79 M/UL (4.70-6.10) L Hemoglobin 9.6 G/DL (14.2-18.0) L Hematocrit 27.5 % (42.0-52.0) L Mean Corpuscular Volume 98 FL (80-99) Mean Corpuscular Hemoglobin 34.4 PG (27.0-31.0) H Mean Corpuscular Hemoglobin Concent 35.0 G/DL (32.0-36.0) Red Cell Distribution Width 16.7 % (11.6-14.8) H Platelet Count 132 K/UL (150-450) L Mean Platelet Volume 6.7 FL (6.5-10.1) Neutrophils (%) (Auto) % (45.0-75.0) Lymphocytes (%) (Auto) % (20.0-45.0) Monocytes (%) (Auto) % (1.0-10.0) Eosinophils (%) (Auto) % (0.0-3.0) Basophils (%) (Auto) % (0.0-2.0) Differential Total Cells Counted 100 Neutrophils % (Manual) 89 % (45-75) H Lymphocytes % (Manual) 2 % (20-45) L Monocytes % (Manual) 9 % (1-10) Eosinophils % (Manual) 0 % (0-3) Basophils % (Manual) 0 % (0-2) Band Neutrophils 0 % (0-8) Platelet Estimate Decreased L Platelet Morphology Normal Hypochromasia 1+ Anisocytosis 1+ Macrocytosis 1+ Sodium Level 136 mEQ/L (135-145) Potassium Level 4.4 mEQ/L (3.4-4.9) # Chloride Level 97 mEQ/L (98-107) L Carbon Dioxide Level 20 mEQ/L (20-30) Anion Gap 19 (5-15) H Blood Urea Nitrogen 93 mg/dL (7-23) H Creatinine 2.5 mg/dL (0.7-1.2) H Estimat Glomerular Filtration Rate mL/min (>60) Glucose Level 166 mg/dL (74-106) H Calcium Level 7.9 mg/dL (8.6-10.2) L Troponin I < 0.30 ng/mL (<=0.30) Pro-B-Type Natriuretic Peptide 50580 pg/mL (0-450) H Carcinoembryonic Antigen 9.0 ng/mL H Microbiology Date/Time Source Procedure Growth Status 05/15/17 20:13 Blood Blood Culture - Preliminary NO GROWTH AFTER 48 HOURS Resulted 05/15/17 19:50 Blood Blood Culture - Preliminary NO GROWTH AFTER 48 HOURS Resulted 05/15/17 23:45 Wound Gram Stain - Final Resulted 05/15/17 23:45 Wound Wound Culture - Preliminary Resulted 05/15/17 21:50 Nasal Nares MRSA Culture - Final NO METHICILLIN RESISTANT STAPH AUREUS... Complete 05/15/17 21:50 Rectum VRE Culture - Final Enterococcus Faecium - Vre Complete Objective HEAD AND NECK: Shows no JVD. LUNGS: Decreased breath sounds with coarse rhonchi. CARDIOVASCULAR: Irregular S1 and S2 with no gallop or murmur. ABDOMEN: Soft. EXTREMITIES: 1 plus pitting edema. He has an ulcer in his heels. ARLIN MIJARES May 18, 2017 17:07
[2017-05-18] MEDS: Atorvastatin 20mg tab ORAL SCH (21:29)
[2017-05-18] MEDS: Metoprolol Tartrate 12.5mg TAB ORAL SCH (21:30)
--- NOTE | 2017-05-18 22:26 | General Progress Note ---
Assessment/Plan Assessment/Plan ASSESSMENT AND PLAN: 1. Deep venous thrombosis of superficial femoral vein in the lower extremity --> ivc filter has been placed 2. Coagulopathy. 3. Liver cirrhosis. 4. Anemia secondary to chronic disease with decrease in HH. No evidence of iron deficiency. --> occult blood is positive, gi consult --> transfuse if patient is symptomatic or hgb below 7 5. Pneumonia. Management as per ID service. 6. Ascites, probably secondary to underlying cirrhosis of liver. 7. Hypertension, currently better controlled. Subjective Constitutional: Reports: no symptoms HEENT: Reports: no symptoms Cardiovascular: Reports: no symptoms Respiratory: Reports: no symptoms Gastrointestinal/Abdominal: Reports: no symptoms Genitourinary: Reports: no symptoms Neurologic/Psychiatric: Reports: no symptoms Endocrine: Reports: no symptoms Hematologic/Lymphatic: Reports: no symptoms Allergies: Coded Allergies: No Known Allergies (Unverified , 05/15/17) Subjective NAD Objective Last 24 Hour Vital Signs Date Time Temp Pulse Resp B/P (MAP) Pulse Ox O2 Delivery O2 Flow Rate FiO2 05/18/17 21:30 71 126/62 05/18/17 20:00 71 05/18/17 20:00 96.6 93 20 126/62 98 Nasal Cannula 2.0 05/18/17 19:30 Nasal Cannula 2.0 28 05/18/17 19:30 89 20 Nasal Cannula 2.0 28 05/18/17 19:30 98 Nasal Cannula 2.0 28 05/18/17 17:30 82 18 127/79 100 Nasal Cannula 2.0 05/18/17 17:00 79 18 124/66 100 Nasal Cannula 2.0 05/18/17 16:25 71 107/64 100 05/18/17 16:00 77 05/18/17 15:55 68 20 123/65 100 Nasal Cannula 2.0 05/18/17 15:40 97.1 65 20 117/72 98 Nasal Cannula 3.0 05/18/17 15:00 77 22 122/68 98 Nasal Cannula 2.0 05/18/17 14:55 76 16 134/72 99 Nasal Cannula 2.0 05/18/17 14:50 75 20 125/80 100 Nasal Cannula 2.0 05/18/17 14:45 75 22 146/63 100 Nasal Cannula 2.0 05/18/17 13:59 80 25 2.0 05/18/17 12:00 97.9 74 20 146/71 99 Nasal Cannula 2.0 05/18/17 11:40 76 05/18/17 08:41 84 140/70 05/18/17 08:00 97.7 84 20 140/70 96 Nasal Cannula 2.0 05/18/17 07:50 88 05/18/17 07:48 Nasal Cannula 2.0 28 05/18/17 07:48 98 Nasal Cannula 2.0 28 05/18/17 07:45 81 20 Nasal Cannula 2.0 28 05/18/17 04:00 97.0 77 20 163/87 95 Nasal Cannula 2.0 05/18/17 04:00 79 05/18/17 00:00 85 Intake and Output 05/18/17 05/19/17 19:00 07:00 Intake Total 710 ml 50 ml Balance 710 ml 50 ml Intake Oral 500 ml IV Total 210 ml 50 ml Laboratory Tests 05/18/17 04:55: White Blood Count 5.0, Red Blood Count 2.79L, Hemoglobin 9.6L, Hematocrit 27.5L , Mean Corpuscular Volume 98, Mean Corpuscular Hemoglobin 34.4H, Mean Corpuscular Hemoglobin Concent 35.0, Red Cell Distribution Width 16.7H, Platelet Count 132L, Mean Platelet Volume 6.7, Neutrophils (%) (Auto) , Lymphocytes (%) (Auto) , Monocytes (%) (Auto) , Eosinophils (%) (Auto) , Basophils (%) (Auto) , Differential Total Cells Counted 100, Neutrophils % ( Manual) 89H, Lymphocytes % (Manual) 2L, Monocytes % (Manual) 9, Eosinophils % ( Manual) 0, Basophils % (Manual) 0, Band Neutrophils 0, Platelet Estimate DecreasedL, Platelet Morphology Normal, Hypochromasia 1+, Anisocytosis 1+, Macrocytosis 1+, Sodium Level 136, Potassium Level 4.4#, Chloride Level 97L, Carbon Dioxide Level 20, Anion Gap 19H, Blood Urea Nitrogen 93H, Creatinine 2.5H , Estimat Glomerular Filtration Rate , Glucose Level 166H, Calcium Level 7.9L, Troponin I < 0.30, Pro-B-Type Natriuretic Peptide 42305O, Carcinoembryonic Antigen 9.0H Height (Feet): 5 Height (Inches): 8.00 Weight (Pounds): 161 General Appearance: no apparent distress EENT: normal ENT inspection Cardiovascular: normal peripheral pulses Neurologic: cast iron dipper II-XII grossly normal Skin: warm/dry Devyn Hu May 18, 2017 22:26
[2017-05-19] VITALS (7 sets, daily range): BP systolic 102–135; BP diastolic 53–80
[2017-05-19] MEDS: Clindamycin 600mg 50 ML IV SCH ×3 (04:37→20:12)
[2017-05-19] MEDS: NovoLOG Insulin Flexpen SUBQ SCH ×4 (06:55→21:00)
[2017-05-19] MEDS: Metoprolol Tartrate 12.5mg TAB ORAL SCH ×2 (08:55→21:17)
[2017-05-19] MEDS: Aspirin Baby 81mg ORAL SCH (08:55)
[2017-05-19] MEDS: Cefepime HCl 2 GM in D5W 110 ML IVPB SCH (11:20)
[2017-05-19] MEDS: Acetaminophen 500mg (ES) tab ORAL PRN ×2 (11:37→22:24)
--- NOTE | 2017-05-19 12:28 | General Progress Note ---
Assessment/Plan Assessment/Plan ASSESSMENT AND PLAN: 1. Deep venous thrombosis of superficial femoral vein in the lower extremity --> ivc filter has been placed 2. Coagulopathy. 3. Thrombocytopenia 2/2 liver disease --> abdominal US shows liver cirrhosis and splenomegaly 4. Anemia secondary to chronic disease with decrease in HH. No evidence of iron deficiency. --> occult blood is positive, gi consult --> transfuse if patient is symptomatic or hgb below 7 5. Pneumonia. Management as per ID service. 6. Ascites, probably secondary to underlying cirrhosis of liver. 7. Hypertension, currently better controlled. Subjective Constitutional: Reports: no symptoms HEENT: Reports: no symptoms Cardiovascular: Reports: no symptoms Respiratory: Reports: no symptoms Gastrointestinal/Abdominal: Reports: no symptoms Genitourinary: Reports: no symptoms Neurologic/Psychiatric: Reports: no symptoms Endocrine: Reports: no symptoms Hematologic/Lymphatic: Reports: anemia Allergies: Coded Allergies: No Known Allergies (Unverified , 05/15/17) Subjective afebrile, no major changes, comfortable Objective Last 24 Hour Vital Signs Date Time Temp Pulse Resp B/P (MAP) Pulse Ox O2 Delivery O2 Flow Rate FiO2 05/19/17 08:55 75 122/74 05/19/17 08:00 97.5 89 17 113/76 97 Nasal Cannula 3.0 05/19/17 08:00 122/74 05/19/17 08:00 90 05/19/17 07:45 97 Nasal Cannula 2.0 05/19/17 07:45 Nasal Cannula 2.0 05/19/17 07:44 95 20 Nasal Cannula 2.0 05/19/17 04:36 96.4 103 18 135/80 95 Nasal Cannula 2.0 05/19/17 04:00 107 05/19/17 00:00 97.5 79 20 108/65 96 Nasal Cannula 2.0 05/19/17 00:00 91 05/18/17 21:30 71 126/62 05/18/17 20:00 71 05/18/17 20:00 96.6 93 20 126/62 98 Nasal Cannula 2.0 05/18/17 19:30 Nasal Cannula 2.0 28 05/18/17 19:30 89 20 Nasal Cannula 2.0 05/18/17 19:30 98 Nasal Cannula 2.0 05/18/17 17:30 82 18 127/79 100 Nasal Cannula 2.0 05/18/17 17:00 79 18 124/66 100 Nasal Cannula 2.0 05/18/17 16:25 71 107/64 100 05/18/17 16:00 77 05/18/17 15:55 68 20 123/65 100 Nasal Cannula 2.0 05/18/17 15:40 97.1 65 20 117/72 98 Nasal Cannula 3.0 05/18/17 15:00 77 22 122/68 98 Nasal Cannula 2.0 05/18/17 14:55 76 16 134/72 99 Nasal Cannula 2.0 05/18/17 14:50 75 20 125/80 100 Nasal Cannula 2.0 05/18/17 14:45 75 22 146/63 100 Nasal Cannula 2.0 05/18/17 13:59 80 25 2.0 Height (Feet): 5 Height (Inches): 8.00 Weight (Pounds): 179 General Appearance: WD/WN, no apparent distress EENT: normal ENT inspection Cardiovascular: normal rate Edema: no edema noted Pedal (L), no edema noted Pedal (R) Neurologic: cray fishing hand II-XII grossly normal Skin: warm/dry Devyn Hu May 19, 2017 12:28
--- NOTE | 2017-05-19 15:38 | Cardiac Electrophysiology PN ---
Assessment/Plan Assessment/Plan 1. Atrial fibrillation. HR better on Lopressor to 12.5 bid as was moose as 39 yesterday. Patient is off anticoagulation for severe anemia. 2. Hypertension. On beta-bertram. 3. Hyperlipidemia, on Lipitor. 4. Severe anemia. S/P blood transfusion. Further evaluation by Dr. Hu. 5. Deep vein thrombosis of superficial femoral vein of the lower extremities. Anticoagulation is contraindicated for recurrent and worsening anemia. S/P inferior vena cava filter placement. 6. Liver cirrhosis. 7. Ascites secondary to cirrhosis. 8. SOB BNP 71470 and scrotal edema. Start Lasix 40 iv bid 9. Renal failure DW RN Subjective Subjective Had IVC filter placement.In atrial fib. RN and family at bedside.Is SOB and now has swelling of his scrotum. Objective Last 24 Hour Vital Signs Date Time Temp Pulse Resp B/P (MAP) Pulse Ox O2 Delivery O2 Flow Rate FiO2 05/19/17 12:00 87 05/19/17 12:00 97.7 85 16 102/53 95 Nasal Cannula 3.0 05/19/17 08:55 75 122/74 05/19/17 08:00 97.5 89 17 113/76 97 Nasal Cannula 3.0 05/19/17 08:00 122/74 05/19/17 08:00 90 05/19/17 07:45 97 Nasal Cannula 2.0 28 05/19/17 07:45 Nasal Cannula 2.0 28 05/19/17 07:44 95 20 Nasal Cannula 2.0 28 05/19/17 04:36 96.4 103 18 135/80 95 Nasal Cannula 2.0 05/19/17 04:00 107 05/19/17 00:00 97.5 79 20 108/65 96 Nasal Cannula 2.0 05/19/17 00:00 91 05/18/17 21:30 71 126/62 05/18/17 20:00 71 05/18/17 20:00 96.6 93 20 126/62 98 Nasal Cannula 2.0 05/18/17 19:30 Nasal Cannula 2.0 28 05/18/17 19:30 89 20 Nasal Cannula 2.0 28 05/18/17 19:30 98 Nasal Cannula 2.0 28 05/18/17 17:30 82 18 127/79 100 Nasal Cannula 2.0 05/18/17 17:00 79 18 124/66 100 Nasal Cannula 2.0 05/18/17 16:25 71 107/64 100 05/18/17 16:00 77 05/18/17 15:55 68 20 123/65 100 Nasal Cannula 2.0 05/18/17 15:40 97.1 65 20 117/72 98 Nasal Cannula 3.0 Objective HEAD AND NECK: Shows no JVD. LUNGS: Decreased breath sounds with coarse rhonchi. CARDIOVASCULAR: Irregular S1 and S2 with no gallop or murmur. ABDOMEN: Soft. EXTREMITIES: 2 plus pitting edema and scrotal edema. He has an ulcer in his heels. ARLIN MIJARES May 19, 2017 15:38
[2017-05-19 17:04] LABS: BASOPHILS % (AUTO) 0.8 % (0.0-2.0); LYMPHOCYTES % (AUTO) 5.2 % (20.0-45.0); MEAN CORPUSCULAR HEMOGLOBIN 34.7 PG (27.0-31.0); MEAN CORPUSCULAR HGB CONC 35.6 G/DL (32.0-36.0); MEAN CORPUSCULAR VOLUME 97 FL (80-99); MEAN PLATELET VOLUME 6.7 FL (6.5-10.1); MONOCYTES % (AUTO) 9.5 % (1.0-10.0); NEUTROPHILS % (AUTO) 84.4 % (45.0-75.0); PLATELET COUNT 133 K/UL (150-450); RED BLOOD COUNT 2.95 M/UL (4.70-6.10); RED CELL DISTRIBUTION WIDTH 16.8 % (11.6-14.8); WHITE BLOOD COUNT 6.7 K/UL (4.8-10.8)
[2017-05-19 17:56] LABS: ANION GAP 19 (5-15); CALCIUM 7.6 mg/dL (8.6-10.2); CARBON DIOXIDE 19 mEQ/L (20-30); CHLORIDE 93 mEQ/L (98-107); CREATININE 2.5 mg/dL (0.7-1.2); HEMOLYSIS 4; POTASSIUM 3.8 mEQ/L (3.4-4.9); SODIUM 131 mEQ/L (135-145)
--- NOTE | 2017-05-19 18:57 | Nephrology Progress Note ---
Assessment/Plan Problem List: (1) Renal failure (ARF), acute on chronic (2) COPD exacerbation (3) Weakness (4) Ascites (5) Sepsis (6) HTN (hypertension) (7) Liver cirrhosis (8) Congestive heart failure (CHF) Plan Insert szymanski catheter Urine culture Urology consult Continue lasix per cardiology Monitor renal function Monitor Lytes, correct prn Monitor H&H, transfuse prn Monitor intake and output Hematology following, will follow up with rec Cardiology following AM labs Subjective Subjective In distress, bladder distended Objective Objective Last 24 Hour Vital Signs Date Time Temp Pulse Resp B/P (MAP) Pulse Ox O2 Delivery O2 Flow Rate FiO2 05/19/17 16:05 89 20 Nasal Cannula 2.0 28 05/19/17 16:00 97.3 78 17 130/62 100 Nasal Cannula 3.0 05/19/17 15:52 85 23 Nasal Cannula 2.0 28 05/19/17 12:00 87 05/19/17 12:00 97.7 85 16 102/53 95 Nasal Cannula 3.0 05/19/17 08:55 75 122/74 05/19/17 08:00 97.5 89 17 113/76 97 Nasal Cannula 3.0 05/19/17 08:00 122/74 05/19/17 08:00 90 05/19/17 07:45 97 Nasal Cannula 2.0 28 05/19/17 07:45 Nasal Cannula 2.0 28 05/19/17 07:44 95 20 Nasal Cannula 2.0 28 05/19/17 04:36 96.4 103 18 135/80 95 Nasal Cannula 2.0 05/19/17 04:00 107 05/19/17 00:00 97.5 79 20 108/65 96 Nasal Cannula 2.0 05/19/17 00:00 91 05/18/17 21:30 71 126/62 05/18/17 20:00 71 05/18/17 20:00 96.6 93 20 126/62 98 Nasal Cannula 2.0 05/18/17 19:30 Nasal Cannula 2.0 28 05/18/17 19:30 89 20 Nasal Cannula 2.0 28 05/18/17 19:30 98 Nasal Cannula 2.0 28 Laboratory Tests 05/19/17 16:50: White Blood Count 6.7, Red Blood Count 2.95L, Hemoglobin 10.2L, Hematocrit 28.8L , Mean Corpuscular Volume 97, Mean Corpuscular Hemoglobin 34.7H, Mean Corpuscular Hemoglobin Concent 35.6, Red Cell Distribution Width 16.8H, Platelet Count 133L, Mean Platelet Volume 6.7, Neutrophils (%) (Auto) 84.4H, Lymphocytes (%) (Auto) 5.2L, Monocytes (%) (Auto) 9.5, Eosinophils (%) (Auto) 0.0, Basophils (%) (Auto) 0.8, Sodium Level 131L, Potassium Level 3.8, Chloride Level 93L, Carbon Dioxide Level 19L, Anion Gap 19H, Blood Urea Nitrogen 95H, Creatinine 2.5H, Estimat Glomerular Filtration Rate , Glucose Level 120H, Calcium Level 7.6L Height (Feet): 5 Height (Inches): 8.00 Weight (Pounds): 179 General Appearance: WD/WN, alert, lethargic, moderate distress EENT: PERRL/EOMI, normal ENT inspection Neck: non-tender, normal alignment Cardiovascular: normal rate, regular rhythm Respiratory/Chest: decreased breath sounds Abdomen: distended, tender Genitourinary/Rectal: other - scrotal edema Neurologic: alert, responsive Ada Weston N.P. May 19, 2017 18:57
[2017-05-19] MEDS: Atorvastatin 20mg tab ORAL SCH (21:17)
--- NOTE | 2017-05-19 23:05 | Infectious Diseases Prog Note ---
Assessment/Plan Problems: (1) HCAP (healthcare-associated pneumonia) Assessment & Plan: continue cefepime and clindamycin empirically, monitor CXR, await sputum culture (2) Sepsis Assessment & Plan: due to the above, await blood culture, continue cefepime with clindamycin (3) Ascites Assessment & Plan: recurrent, due to liver cirrhosis, recommend paracentesis to rule out SBP, and GI consult (4) Anasarca Assessment & Plan: due to liver cirrhosis, continue diuresis , monitor daily weight (5) COPD exacerbation Assessment & Plan: due to pneumonia, continue inhalers, and oxygen, monitor CXR (6) ARF (acute renal failure) Assessment & Plan: on top of 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, nephrology is following (7) DVT (deep venous thrombosis) Assessment & Plan: S/P IVC filter placement , poor candidate for anticoagulations Subjective Constitutional: Reports: no symptoms HEENT: Reports: no symptoms Respiratory: Reports: no symptoms Breasts: Reports: no symptoms Cardiovascular: Reports: no symptoms Gastrointestinal/Abdominal: Reports: no symptoms Genitourinary: Reports: no symptoms Neurologic: Reports: no symptoms Psychiatric: Reports: no symptoms Skin: Reports: no symptoms Endocrine: Reports: no symptoms Hematologic: Reports: no symptoms Allergies: Coded Allergies: No Known Allergies (Unverified , 05/15/17) Objective Vital Signs Last 24 Hour Vital Signs Date Time Temp Pulse Resp B/P (MAP) Pulse Ox O2 Delivery O2 Flow Rate FiO2 05/19/17 21:17 98 106/58 05/19/17 20:19 Nasal Cannula 2.0 28 05/19/17 20:18 98 18 Nasal Cannula 2.0 05/19/17 20:18 96 Nasal Cannula 2.0 05/19/17 20:00 88 05/19/17 19:55 97.7 98 21 106/58 Nasal Cannula 05/19/17 16:05 89 20 Nasal Cannula 2.0 28 05/19/17 16:00 97.3 78 17 130/62 100 Nasal Cannula 3.0 05/19/17 16:00 75 05/19/17 15:52 85 23 Nasal Cannula 2.0 28 05/19/17 12:00 87 05/19/17 12:00 97.7 85 16 102/53 95 Nasal Cannula 3.0 05/19/17 08:55 75 122/74 05/19/17 08:00 97.5 89 17 113/76 97 Nasal Cannula 3.0 05/19/17 08:00 122/74 05/19/17 08:00 90 05/19/17 07:45 97 Nasal Cannula 2.0 28 05/19/17 07:45 Nasal Cannula 2.0 28 05/19/17 07:44 95 20 Nasal Cannula 2.0 28 05/19/17 04:36 96.4 103 18 135/80 95 Nasal Cannula 2.0 05/19/17 04:00 107 05/19/17 00:00 97.5 79 20 108/65 96 Nasal Cannula 2.0 05/19/17 00:00 91 Height (Feet): 5 Height (Inches): 8.00 Weight (Pounds): 179 General Appearance: WD/WN, no acute distress HEENT: normocephalic, atraumatic, anicteric, mucous membranes moist, PERRL, EOMI, pharynx normal, supple, no JVD Respiratory/Chest: chest wall non-tender, no respiratory distress, no accessory muscle use, decreased breath sounds, crackles/rales Cardiovascular: normal peripheral pulses, normal rate, regular rhythm, no gallop/murmur, no JVD Abdomen: normal bowel sounds, soft, non tender, no organomegaly, non distended , no mass, no scars Extremities: no cyanosis, no clubbing Skin: no rash, no lesions, ulcers Neurologic/Psychiatric: alert, oriented x 3 Lymphatic: no neck adenopathy, no groin adenopathy Musculoskeletal: normal muscle bulk Laboratory Tests Test 05/19/17 16:50 White Blood Count 6.7 K/UL (4.8-10.8) Red Blood Count 2.95 M/UL (4.70-6.10) L Hemoglobin 10.2 G/DL (14.2-18.0) L Hematocrit 28.8 % (42.0-52.0) L Mean Corpuscular Volume 97 FL (80-99) Mean Corpuscular Hemoglobin 34.7 PG (27.0-31.0) H Mean Corpuscular Hemoglobin Concent 35.6 G/DL (32.0-36.0) Red Cell Distribution Width 16.8 % (11.6-14.8) H Platelet Count 133 K/UL (150-450) L Mean Platelet Volume 6.7 FL (6.5-10.1) Neutrophils (%) (Auto) 84.4 % (45.0-75.0) H Lymphocytes (%) (Auto) 5.2 % (20.0-45.0) L Monocytes (%) (Auto) 9.5 % (1.0-10.0) Eosinophils (%) (Auto) 0.0 % (0.0-3.0) Basophils (%) (Auto) 0.8 % (0.0-2.0) Sodium Level 131 mEQ/L (135-145) L Potassium Level 3.8 mEQ/L (3.4-4.9) Chloride Level 93 mEQ/L (98-107) L Carbon Dioxide Level 19 mEQ/L (20-30) L Anion Gap 19 (5-15) H Blood Urea Nitrogen 95 mg/dL (7-23) H Creatinine 2.5 mg/dL (0.7-1.2) H Estimat Glomerular Filtration Rate mL/min (>60) Glucose Level 120 mg/dL (74-106) H Calcium Level 7.6 mg/dL (8.6-10.2) L Current Medications Medications (Trade) Dose Ordered Sig/Jenifer Route PRN Reason Start Time Stop Time Status Last Admin Dose Admin Acetaminophen (Tylenol) 500 mg EVERY 6 HOURS PRN ORAL Mild Pain/Temp > 100.5 05/16/17 00:30 06/15/17 00:29 05/19/17 22:24 Al Hydroxide/Mg Hydroxide (Mylanta) 30 ml FOUR TIMES A DAY PRN ORAL For Pain 05/16/17 00:30 06/15/17 00:29 Albuterol Sulfate (Proventil) 2.5 mg EVERY 4 HOURS PRN HHN Shortness of Breath 05/16/17 00:30 05/21/17 00:29 05/19/17 15:54 Aspirin (ASA) 81 mg DAILY ORAL 05/16/17 09:00 06/15/17 08:59 05/19/17 08:55 Atorvastatin Calcium (Lipitor) 20 mg BEDTIME ORAL 05/16/17 21:00 06/15/17 20:59 05/19/17 21:17 Cefepime HCl 2 gm/ Dextrose 110 ml @ 220 mls/hr Q24H IVPB 05/16/17 11:00 05/23/17 10:59 05/19/17 11:20 Clindamycin HCl/ Dextrose 50 ml @ 100 mls/hr Q8H IV 05/16/17 12:00 05/23/17 11:59 05/19/17 20:12 Dextrose (Dextrose 50%) STAT PRN IV Hypoglycemia 05/16/17 00:30 06/15/17 00:29 Furosemide (Lasix) 40 mg EVERY 12 HOURS IV 05/19/17 21:00 06/18/17 20:59 05/19/17 21:18 Insulin Aspart (NovoLOG) BEFORE MEALS AND HS SUBQ 05/16/17 06:30 06/15/17 06:29 05/19/17 11:21 Metoprolol Tartrate (Lopressor) 12.5 mg Q12HR ORAL 05/18/17 21:00 06/17/17 20:59 05/19/17 21:17 Axel Jensen M.D. May 19, 2017 23:05
[2017-05-20 03:44] VITALS: BP 103/64
[2017-05-20] MEDS: Clindamycin 600mg 50 ML IV SCH ×2 (04:07→12:43)
[2017-05-20] MEDS: NovoLOG Insulin Flexpen SUBQ SCH ×4 (06:30→21:00)
[2017-05-20] MEDS: Acetaminophen 500mg (ES) tab ORAL PRN (06:42)
--- NOTE | 2017-05-20 07:00 | Consultation ---
DATE OF CONSULTATION: 05/19/2017 UROLOGY CONSULTATION ATTENDING/CONSULTING PHYSICIAN: Rickie Nair M.D. Chief Complaint/History Of Present Illness: I was asked by Dr. Nair to evaluate this unfortunate 81-year-old gentleman regarding history of penoscrotal edema. Briefly, the patient has a history of cirrhosis of the liver as well as hypertension and COPD. He resides in a prison, was brought to the emergency room with generalized weakness. Per the family, the patient appeared more weak than usual. Additionally, the patient has some alteration in mental status and is not communicating as he used to. He was recently hospitalized with pneumonia and is still on antibiotics for the same. During the course of his hospitalization, he was noted to have penoscrotal edema and as such, I was asked to evaluate the patient. PAST MEDICAL HISTORY: 1. Hypertension. 2. COPD. 3. Cirrhosis. 4. Pneumonia. 5. DVT diagnosed in the hospital at this time. PAST SURGICAL HISTORY: IVC filter placement. Medications: Please see the chart for current medications administration details. ALLERGIES: No known drug allergies. Social History: Unremarkable for current tobacco, alcohol, or drug use. The patient lives in a long-term facility. FAMILY HISTORY: Noncontributory. Review Of Systems: A 12-system review of systems cannot be done as the patient cannot cooperate with questioning. PHYSICAL EXAMINATION: General: The patient is an elderly gentleman, awake, but not alert. Not oriented. VITAL SIGNS: Afebrile. Vital signs stable. HEENT: NCAT. EOMI. Oropharynx clear. NECK: Supple. CHEST: Within normal limits. ABDOMEN: Distended from ascites fluid. Extremities: Warm and well perfused. No cyanosis or clubbing. There is 3+ pitting edema of the lower extremities to the knees. BACK: No CVA tenderness to percussion. Neurologic: Exam is deferred as the patient cannot cooperate with the exam. Genitourinary: Reveals an uncircumcised male phallus with a Nieves catheter in place with clear yellow urine output. There is [id number] penoscrotal edema as well. There is no evidence of a hernia or tumor or other source of scrotal swelling. Laboratory Data: Sodium 131, potassium 3.8, chloride 93, bicarbonate 19, BUN 95, creatinine 2.5, glucose 120, and calcium 7.6. White blood cell count 6.7, hematocrit 28.8, and platelets 133,000. PTT 33.8. Fibrinogen 254. Urinalysis, specific gravity 1.015, pH 5.0. Dip test negative for all findings except 1+ leukocyte esterase. Microanalysis with 5 to 10 white blood cells per high-power field, otherwise unremarkable. Diagnostic Imaging: Abdominal ultrasound reveals evidence of hepatic cirrhosis with atrophic liver, coarsened hepatic echogenicity, and surface micronodularity. There was large amount of ascites fluid presumably secondary to the same. There was splenomegaly likely related to the above. There is cholelithiasis and gallbladder wall thickening. There is nonspecific mild fullness of left renal collecting system, possibly related to bladder distention Assessment And Plan: In summary, the patient is an 81-year-old gentleman with a history of cirrhosis and ascites and complications secondary to same. He presents to the hospital with weakness and altered mental status. He was recently hospitalized for pneumonia as well. During the course of his hospitalization, he was noted to have a DVT and has an IVC filter placed. Additionally, he was noted to have penoscrotal edema for which I was asked to evaluate the patient. Physical exam reveals penoscrotal edema, which is yarhctex-io-ahmahl in nature, but also pitting edema of the lower extremities beyond the knee. The picture is consistent with ascites and fluid retention secondary to the same. There is no particular and specific pathology and this is rather a symptom of the cirrhosis and fluid retention. I discussed these findings today with the patient's family at the bedside. I recommend diuresis as tolerated and continue the Nieves catheter for fluid management. There is no specific rule for surgical intervention in this patient from a standpoint. Thank you for allowing me to participate in the care of this unfortunate gentleman. Please do not hesitate to contact me with any questions that you may further have regarding his care. I was able to see him with you as needed. Mehrdad Lai M.D. DR: CHARLIE JOB#: [id number] CC:
[2017-05-20 07:42] LABS: MEAN CORPUSCULAR HEMOGLOBIN 33.6 PG (27.0-31.0); MEAN CORPUSCULAR HGB CONC 33.8 G/DL (32.0-36.0); MEAN CORPUSCULAR VOLUME 99 FL (80-99); MEAN PLATELET VOLUME 7.8 FL (6.5-10.1); PLATELET COUNT 143 K/UL (150-450); RED CELL DISTRIBUTION WIDTH 16.9 % (11.6-14.8); WHITE BLOOD COUNT 5.9 K/UL (4.8-10.8)
[2017-05-20 08:00] VITALS: BP_SYST 107; BP_SYST 108; BP_DIAS 49; BP_DIAS 75
[2017-05-20 08:11] LABS: ANION GAP 20 (5-15); CALCIUM 8.1 mg/dL (8.6-10.2); CARBON DIOXIDE 17 mEQ/L (20-30); CHLORIDE 94 mEQ/L (98-107); CREATININE 2.9 mg/dL (0.7-1.2); HEMOLYSIS 11; POTASSIUM 4.7 mEQ/L (3.4-4.9); SODIUM 131 mEQ/L (135-145)
[2017-05-20] MEDS: Aspirin Baby 81mg ORAL SCH (08:51)
[2017-05-20] MEDS: Metoprolol Tartrate 12.5mg TAB ORAL SCH ×2 (08:51→22:15)
[2017-05-20 10:33] LABS: LYMPHOCYTES % (MANUAL) 3 % (20-45); NEUTROPHILS % (MANUAL) 93 % (45-75); TOTAL CELLS COUNTED 100
[2017-05-20 10:34] LABS: ANISOCYTOSIS 1+; BAND NEUTROPHILS % (MANUAL) 0 % (0-8); BASOPHILS % (MANUAL) 0 % (0-2); EOSINOPHILS % (MANUAL) 0 % (0-3); MACROCYTES 1+; PLATELET ESTIMATE DECREASED; PLATELET MORPHOLOGY NORMAL
[2017-05-20 11:35] LABS: METHYLMALONIC ACID 470 nmol/L (0-378)
[2017-05-20] MEDS: Cefepime HCl 2 GM in D5W 110 ML IVPB SCH (11:37)
[2017-05-20] MEDS: Norco 10mg/325mg tab ORAL PRN ×2 (11:37→22:16)
[2017-05-20 12:00] VITALS: BP 103/56
[2017-05-20 12:23] LABS: INR 1.4 (0.9-1.1); PROTHROMBIN TIME 14.5 SEC (9.30-11.50)
--- NOTE | 2017-05-20 12:52 | GI Initial Consult Note ---
Blanche Yuan NYaritzaPYaritza 05/20/17 1252: History of Present Illness General Date patient seen: May 20, 2017 Time patient seen: 10:00 Reason for Hospitalization: Generalized Weakness Referring physician: MELANIE CONNELLY Reason for Consultation: CIRRHOSIS Present Illness HPI 81-year-old male presents to ED for evaluation. Patient resides in detention. Starting today family states that patient appeared more weak than usual, nursing stated that patient appeared hypoxic on room air. Upon arrival patient is on nasal cannula. Patient has history of COPD, recently treated for pneumonia. Currently on antibiotics. No fevers or chills. No chest pain or shortness of breath. No other aggravating relieving factors. No other associated symptoms GI Consult. HPI as noted above. GI consulted for cirrhosis. ROS limited, pt seen on floor with family member by bedside. Abdominal distention, most likely ascites with abdominal pain. BLE +3 edema. The patient family member denies any ETOH use from the patient. Patient recently had an EGD performed on at [facility] with dx of mild erosive esophagitis. He presents today with anemia, AKF, cirrhosis, positive OB stool, elevated CEA and poor PO intake. Patient is currently pending video swallow study. Home Meds Reported Medications Ascorbic Acid* (ASCORBIC ACID*) 500 Mg Tablet, 500 MG ORAL TWICE A DAY, TAB 05/16/17 Zinc Oxide (ZINC OXIDE) 56.7 Gm Oint...g., 56.7 GM TP, GM 05/15/17 Vitamin A & D (Vitamin A & D Ointment) 454 Gm Oint...g., 454 GM TOP, GM 05/15/17 Petrolatum,White/Lanolin (VITAMIN A & D OINTMENT) 113 Gm Oint...g., 113 GM TP, GM 05/15/17 Insulin Aspart* (NOVOLOG*) 100 Unit/1 Ml Insuln.pen, 0 SUBQ, #1 EA 0 Refills 05/15/17 Insulin Aspart* (NOVOLOG*) 100 Unit/1 Ml Insuln.pen, 0 SUBQ, #1 EA 0 Refills 05/15/17 Zinc Sulfate (ZINC SULFATE*) 220 Mg Capsule, 220 MG ORAL DAILY, CAP 0 Refills 05/15/17 Multivitamins* (MULTIVITAMINS*) 1 Each Tablet, 1 TAB ORAL DAILY, TAB 0 Refills 05/15/17 Atorvastatin Calcium* (ATORVASTATIN CALCIUM*) 20 Mg Tablet, 20 MG ORAL BEDTIME, TAB 05/15/17 Aspirin Ec* (ASPIRIN EC*) 81 Mg Tablet.dr, 81 MG ORAL DAILY, TAB 05/15/17 Acetaminophen (Acetaminophen) 650 Mg/20.3 Ml Solution, 650 MG ORAL EVERY 4 HOURS Y for Prn Headache/Temp > 101, ML 0 Refills 05/15/17 Med list reviewed/reconciled: Yes Allergies: Coded Allergies: No Known Allergies (Unverified , 05/15/17) Patient History Limited by: medical condition History Provided By: Family Member PMH Narrative Past Medical History: HTN, COPD Past Surgical History: none Pertinent Family History: none Social History: Denies: smoking, alcohol use, drug use Immunizations: UTD Reviewed Nursing Documentation: PMH: Agreed, PSxH: Agreed Nursing Documentation-PMH Hx Hypertension: Yes Hx COPD: Yes Social History: Denies: smoking, alcohol use, drug use, other Review of Systems All Other Systems: negative except mentioned in HPI Physical Exam Vital Signs Date Time Temp Pulse Resp B/P (MAP) Pulse Ox O2 Delivery O2 Flow Rate FiO2 05/16/17 07:58 90 05/16/17 08:06 20 Nasal Cannula 2.0 28 05/16/17 08:08 98 05/16/17 08:28 98.3 118/94 Sp02 EP Interpretation: reviewed Labs Laboratory Tests Test 05/19/17 16:50 05/20/17 05:00 05/20/17 11:45 White Blood Count 6.7 K/UL (4.8-10.8) 5.9 K/UL (4.8-10.8) Red Blood Count 2.95 M/UL (4.70-6.10) L 2.90 M/UL (4.70-6.10) L Hemoglobin 10.2 G/DL (14.2-18.0) L 9.8 G/DL (14.2-18.0) L Hematocrit 28.8 % (42.0-52.0) L 28.8 % (42.0-52.0) L Mean Corpuscular Volume 97 FL (80-99) 99 FL (80-99) Mean Corpuscular Hemoglobin 34.7 PG (27.0-31.0) H 33.6 PG (27.0-31.0) H Mean Corpuscular Hemoglobin Concent 35.6 G/DL (32.0-36.0) 33.8 G/DL (32.0-36.0) Red Cell Distribution Width 16.8 % (11.6-14.8) H 16.9 % (11.6-14.8) H Platelet Count 133 K/UL (150-450) L 143 K/UL (150-450) L Mean Platelet Volume 6.7 FL (6.5-10.1) 7.8 FL (6.5-10.1) Neutrophils (%) (Auto) 84.4 % (45.0-75.0) H % (45.0-75.0) Lymphocytes (%) (Auto) 5.2 % (20.0-45.0) L % (20.0-45.0) Monocytes (%) (Auto) 9.5 % (1.0-10.0) % (1.0-10.0) Eosinophils (%) (Auto) 0.0 % (0.0-3.0) % (0.0-3.0) Basophils (%) (Auto) 0.8 % (0.0-2.0) % (0.0-2.0) Sodium Level 131 mEQ/L (135-145) L 131 mEQ/L (135-145) L Potassium Level 3.8 mEQ/L (3.4-4.9) 4.7 mEQ/L (3.4-4.9) Chloride Level 93 mEQ/L (98-107) L 94 mEQ/L (98-107) L Carbon Dioxide Level 19 mEQ/L (20-30) L 17 mEQ/L (20-30) L Anion Gap 19 (5-15) H 20 (5-15) H Blood Urea Nitrogen 95 mg/dL (7-23) H 99 mg/dL (7-23) H Creatinine 2.5 mg/dL (0.7-1.2) H 2.9 mg/dL (0.7-1.2) H Estimat Glomerular Filtration Rate mL/min (>60) mL/min (>60) Glucose Level 120 mg/dL (74-106) H 146 mg/dL (74-106) H Calcium Level 7.6 mg/dL (8.6-10.2) L 8.1 mg/dL (8.6-10.2) L Differential Total Cells Counted 100 Neutrophils % (Manual) 93 % (45-75) H Lymphocytes % (Manual) 3 % (20-45) L Monocytes % (Manual) 4 % (1-10) Eosinophils % (Manual) 0 % (0-3) Basophils % (Manual) 0 % (0-2) Band Neutrophils 0 % (0-8) Platelet Estimate Decreased L Platelet Morphology Normal Anisocytosis 1+ Macrocytosis 1+ Pro-B-Type Natriuretic Peptide 65487 pg/mL (0-450) H Prothrombin Time 14.5 SEC (9.30-11.50) H Prothromb Time International Ratio 1.4 (0.9-1.1) H Activated Partial Thromboplast Time 34 SEC (23-33) H General Appearance: no apparent distress, alert, thin Head: normocephalic EENT: PERRL/EOMI, normal ENT inspection Neck: supple Respiratory: no respiratory distress, other - 2LNC Cardiovascular: normal rate Gastrointestinal: distended Rectal: deferred Neurologic: alert Skin: normal inspection, normal color, no rash, warm/dry Lymphatic: normal inspection, no adenopathy Current Medications Current Medications Medications (Trade) Dose Ordered Sig/Jenifer Route PRN Reason Start Time Stop Time Status Last Admin Dose Admin Acetaminophen (Tylenol) 500 mg EVERY 6 HOURS PRN ORAL Mild Pain/Temp > 100.5 05/16/17 00:30 06/15/17 00:29 05/20/17 06:42 Acetaminophen/ Hydrocodone Bitart ([place] 10/325) 1 ea Q4H PRN ORAL PAIN 4-10 05/20/17 10:00 05/27/17 09:59 05/20/17 11:37 Al Hydroxide/Mg Hydroxide (Mylanta) 30 ml FOUR TIMES A DAY PRN ORAL For Pain 05/16/17 00:30 06/15/17 00:29 Albuterol Sulfate (Proventil) 2.5 mg EVERY 4 HOURS PRN HHN Shortness of Breath 05/16/17 00:30 05/21/17 00:29 05/19/17 15:54 Aspirin (ASA) 81 mg DAILY ORAL 05/16/17 09:00 06/15/17 08:59 05/20/17 08:51 Atorvastatin Calcium (Lipitor) 20 mg BEDTIME ORAL 05/16/17 21:00 06/15/17 20:59 05/19/17 21:17 Cefepime HCl 1 gm/ Dextrose 55 ml @ 110 mls/hr Q24H IVPB 05/21/17 11:00 05/28/17 10:59 Clindamycin HCl/ Dextrose 50 ml @ 100 mls/hr Q8H IV 05/16/17 12:00 05/23/17 11:59 05/20/17 12:43 Dextrose (Dextrose 50%) STAT PRN IV Hypoglycemia 05/16/17 00:30 06/15/17 00:29 Furosemide (Lasix) 40 mg EVERY 12 HOURS IV 05/19/17 21:00 06/18/17 20:59 05/20/17 08:53 Insulin Aspart (NovoLOG) BEFORE MEALS AND HS SUBQ 05/16/17 06:30 06/15/17 06:29 05/19/17 11:21 Metoprolol Tartrate (Lopressor) 12.5 mg Q12HR ORAL 05/18/17 21:00 06/17/17 20:59 05/20/17 08:51 GI: Plan Problems: (1) Anemia (2) Occult blood in stools (3) Elevated CEA (4) Congestive heart failure (CHF) (5) Liver cirrhosis (6) Ascites (7) Anasarca Plan s/[facility] >> mild erosive esophagitis, see full report in physical chart. elevated CEA >> 9 OB stool positive hepatitis panel negative anemia work up ordered paracentesis >> albumin 5% IV prior >> r/o SBP fu ST eval, video swallow >> will consider NGT s/p calorie count fu CT chest/AP avoid NSAIDs monitor H&H, prn transfusions ppi IV daily calorie count fu labs Discussed with Dr. Loomis. Thank you for referring this patient, we will follow. AILEEN LOOMIS 05/26/17 1008: History of Present Illness General Reason for Hospitalization: Generalized Weakness Present Illness Home Meds Reported Medications Ascorbic Acid* (ASCORBIC ACID*) 500 Mg Tablet, 500 MG ORAL TWICE A DAY, TAB 05/16/17 Zinc Oxide (ZINC OXIDE) 56.7 Gm Oint...g., 56.7 GM TP, GM 05/15/17 Vitamin A & D (Vitamin A & D Ointment) 454 Gm Oint...g., 454 GM TOP, GM 05/15/17 Petrolatum,White/Lanolin (VITAMIN A & D OINTMENT) 113 Gm Oint...g., 113 GM TP, GM 05/15/17 Insulin Aspart* (NOVOLOG*) 100 Unit/1 Ml Insuln.pen, 0 SUBQ, #1 EA 0 Refills 05/15/17 Insulin Aspart* (NOVOLOG*) 100 Unit/1 Ml Insuln.pen, 0 SUBQ, #1 EA 0 Refills 05/15/17 Zinc Sulfate (ZINC SULFATE*) 220 Mg Capsule, 220 MG ORAL DAILY, CAP 0 Refills 05/15/17 Multivitamins* (MULTIVITAMINS*) 1 Each Tablet, 1 TAB ORAL DAILY, TAB 0 Refills 05/15/17 Atorvastatin Calcium* (ATORVASTATIN CALCIUM*) 20 Mg Tablet, 20 MG ORAL BEDTIME, TAB 05/15/17 Aspirin Ec* (ASPIRIN EC*) 81 Mg Tablet.dr, 81 MG ORAL DAILY, TAB 05/15/17 Acetaminophen (Acetaminophen) 650 Mg/20.3 Ml Solution, 650 MG ORAL EVERY 4 HOURS Y for Prn Headache/Temp > 101, ML 0 Refills 05/15/17 Allergies: Coded Allergies: No Known Allergies (Unverified , 05/15/17) GI: Plan Plan The patient was seen and examined at bedside and all new and available data was reviewed in the patients chart. I agree with the above findings, impression and plan. (Patient seen earlier today. Signature stamp does not reflect patient encounter time.). -Heather Rice MDh Salbador NAsh May 20, 2017 12:52 AILEEN LOOMIS May 26, 2017 10:08
--- NOTE | 2017-05-20 15:39 | General Progress Note ---
Assessment/Plan Assessment/Plan ASSESSMENT AND PLAN: 1. Deep venous thrombosis of superficial femoral vein in the lower extremity --> ivc filter has been placed 2. Coagulopathy. 3. Thrombocytopenia 2/2 liver disease --> abdominal US shows liver cirrhosis and splenomegaly 4. Anemia secondary to chronic disease with decrease in HH. No evidence of iron deficiency. --> occult blood is positive, gi consult --> transfuse if patient is symptomatic or hgb below 7 5. Pneumonia. Management as per ID service. 6. Ascites, probably secondary to underlying cirrhosis of liver. 7. Hypertension, currently better controlled. Subjective Constitutional: Reports: no symptoms HEENT: Reports: no symptoms Cardiovascular: Reports: no symptoms Respiratory: Reports: no symptoms Gastrointestinal/Abdominal: Reports: no symptoms Genitourinary: Reports: no symptoms Neurologic/Psychiatric: Reports: no symptoms Endocrine: Reports: no symptoms Hematologic/Lymphatic: Reports: no symptoms Allergies: Coded Allergies: No Known Allergies (Unverified , 05/15/17) Subjective no events overnight Objective Last 24 Hour Vital Signs Date Time Temp Pulse Resp B/P (MAP) Pulse Ox O2 Delivery O2 Flow Rate FiO2 05/20/17 12:00 79 05/20/17 12:00 97.5 84 20 103/56 99 Nasal Cannula 3.0 05/20/17 08:51 99 103/64 05/20/17 08:00 94 05/20/17 08:00 96.4 102 18 107/49 100 Nasal Cannula 2.0 05/20/17 07:55 93 20 Nasal Cannula 2.0 05/20/17 07:55 Nasal Cannula 2.0 05/20/17 07:55 96 Nasal Cannula 2.0 05/20/17 04:00 99 05/20/17 03:44 98.5 100 22 103/64 97 Nasal Cannula 2.0 05/20/17 00:00 85 05/19/17 23:48 98.4 101 20 110/63 96 Nasal Cannula 2.0 05/19/17 21:17 98 106/58 05/19/17 20:19 Nasal Cannula 2.0 28 05/19/17 20:18 98 18 Nasal Cannula 2.0 28 05/19/17 20:18 96 Nasal Cannula 2.0 28 05/19/17 20:00 88 05/19/17 19:55 97.7 98 21 106/58 Nasal Cannula 05/19/17 16:05 89 20 Nasal Cannula 2.0 28 05/19/17 16:00 97.3 78 17 130/62 100 Nasal Cannula 3.0 05/19/17 16:00 75 05/19/17 15:52 85 23 Nasal Cannula 2.0 28 Intake and Output 05/20/17 05/21/17 19:00 07:00 # Bowel Movements 1 Laboratory Tests 05/19/17 16:50: White Blood Count 6.7, Red Blood Count 2.95L, Hemoglobin 10.2L, Hematocrit 28.8L , Mean Corpuscular Volume 97, Mean Corpuscular Hemoglobin 34.7H, Mean Corpuscular Hemoglobin Concent 35.6, Red Cell Distribution Width 16.8H, Platelet Count 133L, Mean Platelet Volume 6.7, Neutrophils (%) (Auto) 84.4H, Lymphocytes (%) (Auto) 5.2L, Monocytes (%) (Auto) 9.5, Eosinophils (%) (Auto) 0.0, Basophils (%) (Auto) 0.8, Sodium Level 131L, Potassium Level 3.8, Chloride Level 93L, Carbon Dioxide Level 19L, Anion Gap 19H, Blood Urea Nitrogen 95H, Creatinine 2.5H, Estimat Glomerular Filtration Rate , Glucose Level 120H, Calcium Level 7.6L 05/20/17 05:00: White Blood Count 5.9, Red Blood Count 2.90L, Hemoglobin 9.8L, Hematocrit 28.8L , Mean Corpuscular Volume 99, Mean Corpuscular Hemoglobin 33.6H, Mean Corpuscular Hemoglobin Concent 33.8, Red Cell Distribution Width 16.9H, Platelet Count 143L, Mean Platelet Volume 7.8, Neutrophils (%) (Auto) , Lymphocytes (%) (Auto) , Monocytes (%) (Auto) , Eosinophils (%) (Auto) , Basophils (%) (Auto) , Sodium Level 131L, Potassium Level 4.7, Chloride Level 94L, Carbon Dioxide Level 17L, Anion Gap 20H, Blood Urea Nitrogen 99H, Creatinine 2.9H, Estimat Glomerular Filtration Rate , Glucose Level 146H, Calcium Level 8.1L, Differential Total Cells Counted 100, Neutrophils % (Manual ) 93H, Lymphocytes % (Manual) 3L, Monocytes % (Manual) 4, Eosinophils % (Manual ) 0, Basophils % (Manual) 0, Band Neutrophils 0, Platelet Estimate DecreasedL, Platelet Morphology Normal, Anisocytosis 1+, Macrocytosis 1+, Pro-B-Type Natriuretic Peptide [id number] 05/20/17 11:45: Prothrombin Time 14.5H, Prothromb Time International Ratio 1.4H, Activated Partial Thromboplast Time 34H Height (Feet): 5 Height (Inches): 8.00 Weight (Pounds): 181 General Appearance: no apparent distress EENT: normal ENT inspection Neck: normal alignment Cardiovascular: normal peripheral pulses Respiratory/Chest: no accessory muscle use Edema: 2+ Leg (L), 2+ Leg (R) Edema: pitting Skin: warm/dry Lymphatic: fixed anterior cervical (L) Devyn Hu May 20, 2017 15:39
[2017-05-20 16:00] VITALS: BP 103/61
--- NOTE | 2017-05-20 16:41 | Cardiology Report ---
APPROVED REPORT EXAM: Two-dimensional and M-mode echocardiogram with Doppler and color Doppler. INDICATION SVT Technically difficult study due to pts body habitus. All views are subcostal. M-mode measurements of left ventricle not obtainable due to cardiac position. Normal left ventricular chamber size, systolic function and wall motion to extent visualized. Left ventricular ejection fraction grossly estimated to be 60-65 %. Study quality precludes accurate assessment of regional wall motion. Mild left ventricular hypertrophy by 2-D. No evidence of pericardial effusion. poor valvular definition
--- NOTE | 2017-05-20 17:02 | Cardiac Electrophysiology PN ---
Assessment/Plan Assessment/Plan 1. Atrial fibrillation. Continue Lopressor 12.5 bid . Patient is off anticoagulation for severe anemia. 2. Hypertension. On beta-bertram. 3. Hyperlipidemia, on Lipitor. 4. Severe anemia. S/P blood transfusion. Further evaluation by Dr. Hu. 5. Deep vein thrombosis of superficial femoral vein of the lower extremities. Anticoagulation is contraindicated for worsening anemia. S/P inferior vena cava filter placement. 6. Liver cirrhosis. 7. Ascites secondary to cirrhosis. 8. SOB BNP 93239 and scrotal edema.On Lasix 40 iv bid 9. Renal failure DW RN Subjective Subjective Had IVC filter placement.In atrial fib with controlled rate.Family at bedside. Paracentesis was cancelled. Objective Last 24 Hour Vital Signs Date Time Temp Pulse Resp B/P (MAP) Pulse Ox O2 Delivery O2 Flow Rate FiO2 05/20/17 16:00 80 05/20/17 16:00 95.9 84 21 103/61 99 Nasal Cannula 3.0 05/20/17 12:00 79 05/20/17 12:00 97.5 84 20 103/56 99 Nasal Cannula 3.0 05/20/17 08:51 99 103/64 05/20/17 08:00 94 05/20/17 08:00 96.4 102 18 107/49 100 Nasal Cannula 2.0 05/20/17 07:55 93 20 Nasal Cannula 2.0 05/20/17 07:55 Nasal Cannula 2.0 05/20/17 07:55 96 Nasal Cannula 2.0 05/20/17 04:00 99 05/20/17 03:44 98.5 100 22 103/64 97 Nasal Cannula 2.0 05/20/17 00:00 85 05/19/17 23:48 98.4 101 20 110/63 96 Nasal Cannula 2.0 05/19/17 21:17 98 106/58 05/19/17 20:19 Nasal Cannula 2.0 28 05/19/17 20:18 98 18 Nasal Cannula 2.0 28 05/19/17 20:18 96 Nasal Cannula 2.0 28 05/19/17 20:00 88 05/19/17 19:55 97.7 98 21 106/58 Nasal Cannula Intake and Output 05/20/17 05/21/17 19:00 07:00 # Bowel Movements 1 Laboratory Tests Test 05/20/17 05:00 05/20/17 11:45 White Blood Count 5.9 K/UL (4.8-10.8) Red Blood Count 2.90 M/UL (4.70-6.10) L Hemoglobin 9.8 G/DL (14.2-18.0) L Hematocrit 28.8 % (42.0-52.0) L Mean Corpuscular Volume 99 FL (80-99) Mean Corpuscular Hemoglobin 33.6 PG (27.0-31.0) H Mean Corpuscular Hemoglobin Concent 33.8 G/DL (32.0-36.0) Red Cell Distribution Width 16.9 % (11.6-14.8) H Platelet Count 143 K/UL (150-450) L Mean Platelet Volume 7.8 FL (6.5-10.1) Neutrophils (%) (Auto) % (45.0-75.0) Lymphocytes (%) (Auto) % (20.0-45.0) Monocytes (%) (Auto) % (1.0-10.0) Eosinophils (%) (Auto) % (0.0-3.0) Basophils (%) (Auto) % (0.0-2.0) Differential Total Cells Counted 100 Neutrophils % (Manual) 93 % (45-75) H Lymphocytes % (Manual) 3 % (20-45) L Monocytes % (Manual) 4 % (1-10) Eosinophils % (Manual) 0 % (0-3) Basophils % (Manual) 0 % (0-2) Band Neutrophils 0 % (0-8) Platelet Estimate Decreased L Platelet Morphology Normal Anisocytosis 1+ Macrocytosis 1+ Sodium Level 131 mEQ/L (135-145) L Potassium Level 4.7 mEQ/L (3.4-4.9) Chloride Level 94 mEQ/L (98-107) L Carbon Dioxide Level 17 mEQ/L (20-30) L Anion Gap 20 (5-15) H Blood Urea Nitrogen 99 mg/dL (7-23) H Creatinine 2.9 mg/dL (0.7-1.2) H Estimat Glomerular Filtration Rate mL/min (>60) Glucose Level 146 mg/dL (74-106) H Calcium Level 8.1 mg/dL (8.6-10.2) L Pro-B-Type Natriuretic Peptide 42871 pg/mL (0-450) H Prothrombin Time 14.5 SEC (9.30-11.50) H Prothromb Time International Ratio 1.4 (0.9-1.1) H Activated Partial Thromboplast Time 34 SEC (23-33) H Objective HEAD AND NECK: Shows no JVD. LUNGS: Decreased breath sounds with coarse rhonchi. CARDIOVASCULAR: Irregular S1 and S2 with no gallop or murmur. ABDOMEN: Soft. EXTREMITIES: 2 plus pitting edema and scrotal edema . He has an ulcer in his heels. ARLIN MIJARES May 20, 2017 17:02
--- NOTE | 2017-05-20 17:46 | Infectious Diseases Prog Note ---
Assessment/Plan Problems: (1) HCAP (healthcare-associated pneumonia) Assessment & Plan: improved, will stop cefepime and clindamycin empirically already received 6 days here , monitor CXR (2) Sepsis Assessment & Plan: due to the above, improved, blood culture is negative , will stop cefepime with clindamycin (3) Ascites Assessment & Plan: recurrent, due to liver cirrhosis, recommend paracentesis to rule out SBP, GI is following (4) Anasarca Assessment & Plan: due to liver cirrhosis, continue diuresis , monitor daily weight (5) COPD exacerbation Assessment & Plan: due to pneumonia, continue inhalers, and oxygen, monitor CXR (6) ARF (acute renal failure) Assessment & Plan: on top of 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, nephrology is following (7) DVT (deep venous thrombosis) Assessment & Plan: S/P IVC filter placement , poor candidate for anticoagulations (8) Unspecified open wound, right foot, initial encounter Assessment & Plan: not infected, culture grew yeast most likely colonization, continue local wound care Subjective Constitutional: Reports: no symptoms HEENT: Reports: no symptoms Respiratory: Reports: no symptoms Breasts: Reports: no symptoms Cardiovascular: Reports: no symptoms Gastrointestinal/Abdominal: Reports: diarrhea, bloating Genitourinary: Reports: no symptoms Neurologic: Reports: no symptoms Psychiatric: Reports: no symptoms Skin: Reports: ulcer Musculoskeletal: Reports: pain, swelling Allergies: Coded Allergies: No Known Allergies (Unverified , 05/15/17) Objective Vital Signs Last 24 Hour Vital Signs Date Time Temp Pulse Resp B/P (MAP) Pulse Ox O2 Delivery O2 Flow Rate FiO2 05/20/17 16:00 80 05/20/17 16:00 95.9 84 21 103/61 99 Nasal Cannula 3.0 05/20/17 12:00 79 05/20/17 12:00 97.5 84 20 103/56 99 Nasal Cannula 3.0 05/20/17 08:51 99 103/64 05/20/17 08:00 94 05/20/17 08:00 96.4 102 18 107/49 100 Nasal Cannula 2.0 05/20/17 07:55 93 20 Nasal Cannula 2.0 05/20/17 07:55 Nasal Cannula 2.0 05/20/17 07:55 96 Nasal Cannula 2.0 05/20/17 04:00 99 05/20/17 03:44 98.5 100 22 103/64 97 Nasal Cannula 2.0 05/20/17 00:00 85 05/19/17 23:48 98.4 101 20 110/63 96 Nasal Cannula 2.0 05/19/17 21:17 98 106/58 05/19/17 20:19 Nasal Cannula 2.0 28 05/19/17 20:18 98 18 Nasal Cannula 2.0 28 05/19/17 20:18 96 Nasal Cannula 2.0 28 05/19/17 20:00 88 05/19/17 19:55 97.7 98 21 106/58 Nasal Cannula Height (Feet): 5 Height (Inches): 8.00 Weight (Pounds): 181 General Appearance: WD/WN, cachetic HEENT: normocephalic, atraumatic, anicteric, mucous membranes moist, EOMI, pharynx normal, supple, no JVD Respiratory/Chest: no respiratory distress, no accessory muscle use, decreased breath sounds, crackles/rales Cardiovascular: normal peripheral pulses, normal rate, regular rhythm, no gallop/murmur, no JVD Abdomen: no mass, no scars, hypoactive bowel sounds, distended, tender Extremities: no cyanosis, no clubbing Skin: no rash, no lesions, ulcers Neurologic/Psychiatric: alert, oriented x 3 Laboratory Tests Test 05/20/17 05:00 05/20/17 11:45 White Blood Count 5.9 K/UL (4.8-10.8) Red Blood Count 2.90 M/UL (4.70-6.10) L Hemoglobin 9.8 G/DL (14.2-18.0) L Hematocrit 28.8 % (42.0-52.0) L Mean Corpuscular Volume 99 FL (80-99) Mean Corpuscular Hemoglobin 33.6 PG (27.0-31.0) H Mean Corpuscular Hemoglobin Concent 33.8 G/DL (32.0-36.0) Red Cell Distribution Width 16.9 % (11.6-14.8) H Platelet Count 143 K/UL (150-450) L Mean Platelet Volume 7.8 FL (6.5-10.1) Neutrophils (%) (Auto) % (45.0-75.0) Lymphocytes (%) (Auto) % (20.0-45.0) Monocytes (%) (Auto) % (1.0-10.0) Eosinophils (%) (Auto) % (0.0-3.0) Basophils (%) (Auto) % (0.0-2.0) Differential Total Cells Counted 100 Neutrophils % (Manual) 93 % (45-75) H Lymphocytes % (Manual) 3 % (20-45) L Monocytes % (Manual) 4 % (1-10) Eosinophils % (Manual) 0 % (0-3) Basophils % (Manual) 0 % (0-2) Band Neutrophils 0 % (0-8) Platelet Estimate Decreased L Platelet Morphology Normal Anisocytosis 1+ Macrocytosis 1+ Sodium Level 131 mEQ/L (135-145) L Potassium Level 4.7 mEQ/L (3.4-4.9) Chloride Level 94 mEQ/L (98-107) L Carbon Dioxide Level 17 mEQ/L (20-30) L Anion Gap 20 (5-15) H Blood Urea Nitrogen 99 mg/dL (7-23) H Creatinine 2.9 mg/dL (0.7-1.2) H Estimat Glomerular Filtration Rate mL/min (>60) Glucose Level 146 mg/dL (74-106) H Calcium Level 8.1 mg/dL (8.6-10.2) L Pro-B-Type Natriuretic Peptide 59264 pg/mL (0-450) H Prothrombin Time 14.5 SEC (9.30-11.50) H Prothromb Time International Ratio 1.4 (0.9-1.1) H Activated Partial Thromboplast Time 34 SEC (23-33) H Current Medications Medications (Trade) Dose Ordered Sig/Jenifer Route PRN Reason Start Time Stop Time Status Last Admin Dose Admin Acetaminophen (Tylenol) 500 mg EVERY 6 HOURS PRN ORAL Mild Pain/Temp > 100.5 05/16/17 00:30 06/15/17 00:29 05/20/17 06:42 Acetaminophen/ Hydrocodone Bitart (Chandler 10) 1 ea Q4H PRN ORAL PAIN 4-10 05/20/17 10:00 05/27/17 09:59 05/20/17 11:37 Al Hydroxide/Mg Hydroxide (Mylanta) 30 ml FOUR TIMES A DAY PRN ORAL For Pain 05/16/17 00:30 06/15/17 00:29 Albumin Human 250 ml @ 0 mls/hr Q0M PRN IV one hour prior to paracentesis 05/20/17 17:30 05/21/17 23:59 Albuterol Sulfate (Proventil) 2.5 mg EVERY 4 HOURS PRN HHN Shortness of Breath 05/16/17 00:30 05/21/17 00:29 05/19/17 15:54 Aspirin (ASA) 81 mg DAILY ORAL 05/16/17 09:00 06/15/17 08:59 05/20/17 08:51 Atorvastatin Calcium (Lipitor) 20 mg BEDTIME ORAL 05/16/17 21:00 06/15/17 20:59 05/19/17 21:17 Cefepime HCl 1 gm/ Dextrose 55 ml @ 110 mls/hr Q24H IVPB 05/21/17 11:00 05/28/17 10:59 Clindamycin HCl/ Dextrose 50 ml @ 100 mls/hr Q8H IV 05/16/17 12:00 05/23/17 11:59 05/20/17 12:43 Dextrose (Dextrose 50%) STAT PRN IV Hypoglycemia 05/16/17 00:30 06/15/17 00:29 Furosemide (Lasix) 40 mg EVERY 12 HOURS IV 05/19/17 21:00 06/18/17 20:59 05/20/17 08:53 Insulin Aspart (NovoLOG) BEFORE MEALS AND HS SUBQ 05/16/17 06:30 06/15/17 06:29 05/20/17 17:11 Metoprolol Tartrate (Lopressor) 12.5 mg Q12HR ORAL 05/18/17 21:00 06/17/17 20:59 05/20/17 08:51 Axel Jensen M.D. May 20, 2017 17:46
[2017-05-20 19:55] VITALS: BP 115/75
[2017-05-20] MEDS: Atorvastatin 20mg tab ORAL SCH (22:15)
[2017-05-20 23:44] VITALS: BP 118/57
[2017-05-21 03:48] VITALS: BP 120/59
[2017-05-21] MEDS: NovoLOG Insulin Flexpen SUBQ SCH ×4 (06:29→21:22)
[2017-05-21 08:00] VITALS: BP 90/60
[2017-05-21] MEDS: Metoprolol Tartrate 12.5mg TAB ORAL SCH (09:00)
[2017-05-21] MEDS: Aspirin Baby 81mg ORAL SCH (09:00)
--- NOTE | 2017-05-21 09:02 | Nephrology Progress Note ---
Assessment/Plan Problem List: (1) COPD exacerbation (2) HTN (hypertension) (3) Pneumonia (4) Liver cirrhosis (5) Ascites Subjective Subjective late entry for 05/20 - Objective Objective Last 24 Hour Vital Signs Date Time Temp Pulse Resp B/P (MAP) Pulse Ox O2 Delivery O2 Flow Rate FiO2 05/21/17 08:00 97.0 60 20 90/60 95 Room Air 05/21/17 04:00 73 05/21/17 03:48 97.7 77 19 120/59 100 Nasal Cannula 3.0 05/21/17 00:00 80 05/20/17 23:44 97.6 74 20 118/57 100 Nasal Cannula 3.0 05/20/17 22:15 75 115/75 05/20/17 20:03 Nasal Cannula 2.0 28 05/20/17 20:03 97 Nasal Cannula 2.0 28 05/20/17 20:03 94 18 Nasal Cannula 2.0 28 05/20/17 20:00 82 05/20/17 19:55 98.2 86 18 115/75 96 Nasal Cannula 3.0 05/20/17 16:00 80 05/20/17 16:00 95.9 84 21 103/61 99 Nasal Cannula 3.0 05/20/17 12:00 79 05/20/17 12:00 97.5 84 20 103/56 99 Nasal Cannula 3.0 Laboratory Tests 05/20/17 11:45: Prothrombin Time 14.5H, Prothromb Time International Ratio 1.4H, Activated Partial Thromboplast Time 34H Height (Feet): 5 Height (Inches): 8.00 Weight (Pounds): 181 MELANIE CONNELLY May 21, 2017 09:02
[2017-05-21 10:07] LABS: MEAN CORPUSCULAR HEMOGLOBIN 33.8 PG (27.0-31.0); MEAN CORPUSCULAR HGB CONC 33.8 G/DL (32.0-36.0); MEAN CORPUSCULAR VOLUME 100 FL (80-99); PLATELET COUNT 116 K/UL (150-450); RED BLOOD COUNT 2.44 M/UL (4.70-6.10); RED CELL DISTRIBUTION WIDTH 16.9 % (11.6-14.8); WHITE BLOOD COUNT 8.5 K/UL (4.8-10.8)
[2017-05-21 10:15] LABS: ALANINE AMINOTRANSFERASE 11 U/L (3-41); ALBUMIN/GLOBULIN RATIO 0.6 (1.0-2.7); ANION GAP 19 (5-15); ASPARTATE AMINO TRANSFERASE 28 U/L (5-40); CALCIUM 7.7 mg/dL (8.6-10.2); CARBON DIOXIDE 17 mEQ/L (20-30); CHLORIDE 92 mEQ/L (98-107); CREATININE 3.1 mg/dL (0.7-1.2); HEMOLYSIS 5; MAGNESIUM 2.2 mg/dL (1.7-2.5); PHOSPHORUS 5.4 mg/dL (2.5-4.8); SODIUM 128 mEQ/L (135-145); TOTAL PROTEIN 5.6 g/dL (6.6-8.7)
[2017-05-21 10:37] LABS: ANISOCYTOSIS 1+; BAND NEUTROPHILS % (MANUAL) 0 % (0-8); BASOPHILS % (MANUAL) 0 % (0-2); EOSINOPHILS % (MANUAL) 0 % (0-3); HYPOCHROMASIA 1+; LYMPHOCYTES % (MANUAL) 3 % (20-45); MACROCYTES 1+; NEUTROPHILS % (MANUAL) 90 % (45-75); PLATELET ESTIMATE DECREASED; PLATELET MORPHOLOGY NORMAL; TOTAL CELLS COUNTED 100
[2017-05-21 10:45] LABS: OTHERS PATHOLOGIST COMMENT
[2017-05-21 10:54] LABS: BILIRUBIN,DIRECT 5.1 mg/dL (0.1-0.3)
--- NOTE | 2017-05-21 10:59 | GI Progress Note ---
Assessment/Plan Problems: (1) Elevated CEA ICD Codes: R97.0 - Elevated carcinoembryonic antigen [CEA] SNOMED: 47311441, 945165190 (2) Anemia ICD Codes: D64.9 - Anemia, unspecified SNOMED: 787107032 (3) Congestive heart failure (CHF) ICD Codes: I50.9 - Heart failure, unspecified SNOMED: 69488663 (4) Renal failure (ARF), acute on chronic ICD Codes: N17.9 - Acute kidney failure, unspecified; N18.9 - Chronic kidney disease, unspecified SNOMED: 352539374 (5) Anasarca ICD Codes: R60.1 - Generalized edema SNOMED: 672226447, 492361853 (6) Ascites ICD Codes: R18.8 - Other ascites SNOMED: 444676041 (7) Sepsis ICD Codes: A41.9 - Sepsis, unspecified organism SNOMED: 49802412, 811765695 Qualifiers: Qualified Codes: A41.9 - Sepsis, unspecified organism (8) Liver cirrhosis ICD Codes: K74.60 - Unspecified cirrhosis of liver SNOMED: 48923894 Status: unchanged Status Narrative Discussed with Dr. Christopher. Assessment/Plan s[facility] >> mild erosive esophagitis, see full report in physical chart. elevated CEA >> 9 OB stool positive hepatitis panel negative paracentesis today, albumin 5% IV prior >> r/o SBP fu ST eval, video swallow >> will consider NGT s/p calorie count fu CT chest/AP given cirrhosis of unknown etiology will dc lasix given elevated creatinine albumin 5% IV x 3 days ammonia levels are low >> hold lactulose + Xifaxan avoid NSAIDs monitor H&H, prn transfusions ppi IV daily calorie count fu labs Subjective Subjective limited Objective Last 24 Hour Vital Signs Date Time Temp Pulse Resp B/P (MAP) Pulse Ox O2 Delivery O2 Flow Rate FiO2 05/21/17 08:04 Nasal Cannula 2.0 28 05/21/17 08:02 100 Nasal Cannula 2.0 28 05/21/17 08:01 82 20 Nasal Cannula 2.0 28 05/21/17 08:00 87 05/21/17 08:00 97.0 60 20 90/60 95 Room Air 05/21/17 04:00 73 9/22/17 03:48 97.7 77 19 120/59 100 Nasal Cannula 3.0 05/21/17 00:00 80 05/20/17 23:44 97.6 74 20 118/57 100 Nasal Cannula 3.0 05/20/17 22:15 75 115/75 05/20/17 20:03 Nasal Cannula 2.0 28 05/20/17 20:03 97 Nasal Cannula 2.0 28 05/20/17 20:03 94 18 Nasal Cannula 2.0 28 05/20/17 20:00 82 05/20/17 19:55 98.2 86 18 115/75 96 Nasal Cannula 3.0 05/20/17 16:00 80 05/20/17 16:00 95.9 84 21 103/61 99 Nasal Cannula 3.0 05/20/17 12:00 79 05/20/17 12:00 97.5 84 20 103/56 99 Nasal Cannula 3.0 Laboratory Tests Test 05/20/17 11:45 05/21/17 09:30 Prothrombin Time 14.5 SEC (9.30-11.50) H Prothromb Time International Ratio 1.4 (0.9-1.1) H Activated Partial Thromboplast Time 34 SEC (23-33) H White Blood Count 8.5 K/UL (4.8-10.8) Red Blood Count 2.44 M/UL (4.70-6.10) L Hemoglobin 8.2 G/DL (14.2-18.0) L Hematocrit 24.4 % (42.0-52.0) L Mean Corpuscular Volume 100 FL (80-99) H Mean Corpuscular Hemoglobin 33.8 PG (27.0-31.0) H Mean Corpuscular Hemoglobin Concent 33.8 G/DL (32.0-36.0) Red Cell Distribution Width 16.9 % (11.6-14.8) H Platelet Count 116 K/UL (150-450) L Mean Platelet Volume 8.0 FL (6.5-10.1) Neutrophils (%) (Auto) % (45.0-75.0) Lymphocytes (%) (Auto) % (20.0-45.0) Monocytes (%) (Auto) % (1.0-10.0) Eosinophils (%) (Auto) % (0.0-3.0) Basophils (%) (Auto) % (0.0-2.0) Differential Total Cells Counted 100 Neutrophils % (Manual) 90 % (45-75) H Lymphocytes % (Manual) 3 % (20-45) L Monocytes % (Manual) 7 % (1-10) Eosinophils % (Manual) 0 % (0-3) Basophils % (Manual) 0 % (0-2) Band Neutrophils 0 % (0-8) Platelet Estimate Decreased L Platelet Morphology Normal Hypochromasia 1+ Anisocytosis 1+ Macrocytosis 1+ Sodium Level 128 mEQ/L (135-145) L Potassium Level 4.0 mEQ/L (3.4-4.9) Chloride Level 92 mEQ/L (98-107) L Carbon Dioxide Level 17 mEQ/L (20-30) L Anion Gap 19 (5-15) H Blood Urea Nitrogen 105 mg/dL (7-23) H Creatinine 3.1 mg/dL (0.7-1.2) H Estimat Glomerular Filtration Rate mL/min (>60) Glucose Level 128 mg/dL (74-106) H Calcium Level 7.7 mg/dL (8.6-10.2) L Phosphorus Level 5.4 mg/dL (2.5-4.8) H Magnesium Level 2.2 mg/dL (1.7-2.5) Total Bilirubin 7.1 mg/dL (0.0-1.2) H Direct Bilirubin 5.1 mg/dL (0.1-0.3) H Aspartate Amino Transf (AST/SGOT) 28 U/L (5-40) Alanine Aminotransferase (ALT/SGPT) 11 U/L (3-41) Alkaline Phosphatase 179 U/L (40-129) H Total Protein 5.6 g/dL (6.6-8.7) L Albumin 2.2 g/dL (3.5-5.2) L Globulin 3.4 g/dL Albumin/Globulin Ratio 0.6 (1.0-2.7) L Height (Feet): 5 Height (Inches): 8.00 Weight (Pounds): 181 General Appearance: alert, thin Cardiovascular: normal rate Respiratory/Chest: normal breath sounds, no respiratory distress Abdominal Exam: soft, distended, ascites Blanche Yuan N.P. May 21, 2017 10:59
[2017-05-21] MEDS ORDERED: Cefepime 1gm/D5W 55ml IVPB SCH ×2 (11:00)
--- NOTE | 2017-05-21 11:03 | Diagnostic Imaging Report ---
INDICATION: ABN LABS TECHNIQUE: Patient ingested a small amount of oral contrast, but was not able to tolerate much. No IV contrast utilized, per referring physician request and due to history of acute renal failure. Spiral acquisitions obtained through the chest, abdomen, and pelvis. Multiplanar reconstructions were generated. Total dose length product 871 mGycm. CTDIvol(s) 13 mGy. Radiation dose was minimized using automated exposure control COMPARISON: Reference made to abdominal ultrasound 05/16/2017 FINDINGS: There is anasarca, manifested by diffuse edema of the bilateral subcutaneous fat, less striking congestion of the mesenteric and mediastinal fat. In addition, there is massive ascites and moderate-sized bilateral pleural effusions Chest: The lungs demonstrate bullous changes bilaterally, especially in the upper lobes. There are bilateral moderate-sized pleural effusions, slightly larger on the right than on the left. These results in compressive atelectatic changes, particularly on the right. No definite dense consolidation demonstrated. There is a 4 mm nodular opacity in the left upper lobe, image 19 of series 5. Too small to assess whether or not calcified. Linear scarring is seen in the posterior right upper lobe. No other definite masses or nodules are demonstrated. There is some bronchiectasis in the posterior left lower lobe, possibly with some associated honeycombing. A calcified granuloma is seen in the right perihilar region. The heart size is normal. No pericardial effusion demonstrated. There are coronary arterial and aortic valvular calcifications noted. No mediastinal or hilar mass or adenopathy demonstrated. The esophagus is unremarkable. The included thyroid is unremarkable. No axillary or chest wall mass or adenopathy demonstrated. The thoracic skeletal structures are markable for the presence of a mild anterior compression fracture deformity of the T12 vertebral body, resulting in about 20% height loss. Abdomen pelvis: There is massive ascites present. A large amount of fluid herniates into bilateral inguinal hernias. These are incompletely visualized on the available imaging volume. Streak artifact from bilateral hip prostheses completely obscures the lower pelvis and could obscure pathology. There is fairly extensive colonic diverticulosis. No evidence of diverticulitis although difficult to exclude given the extensive surrounding abnormality. Dense contrast is seen within the cecum and ascending colon, presumably from video swallowing study performed immediately preceding. The appendix is not definitely identified. No small bowel distention or definite small bowel wall thickening. The stomach is nondistended. The duodenum is unremarkable. No free intraperitoneal air. Lack of IV contrast limits assessment of the solid organs. The liver is markedly atrophic, with surface nodularity consistent with cirrhotic change. No definite focal abnormalities. The gallbladder contains gallstones. No definite biliary ductal dilatation. The pancreas is atrophic. Calcifications in the pancreatic tail are probably arterial. The spleen demonstrates subtle low-attenuation lesions in the upper pole. The left adrenal is unremarkable. The right adrenal is poorly visualized. The right kidney demonstrates a 2 cm upper pole cyst. No definite solid mass. Small calcification is seen in the lower pole of the left kidney. No hydronephrosis. No mesenteric or retroperitoneal mass or adenopathy. No definite pelvic mass or adenopathy, but as mentioned earlier of the lower pelvis is completely obscured. There is a Nieves catheter within the bladder. There is an inferior vena cava filter in good position. Abdominal aorta is somewhat calcified. The bones demonstrate a vertebral plana wedge/compression fracture of the L2 vertebral body. This results in approximate 60% height loss. IMPRESSION: Anasarca. This is manifested by massive ascites, moderate -- sized bilateral pleural effusions, extensive edema of the subcutaneous fat Above-mentioned pleural effusions result in bilateral basilar compressive pulmonary atelectatic changes Fairly extensive bullous COPD changes. Evidence of chronic fibrosis in the posterior left lower lobe, manifested by bronchiectasis 4 mm nodule in the left upper lobe. Recommend followup CT in 6-12 months Evidence of old granulomatous disease within the right lung No evidence of bowel obstruction Massive ascites, as mentioned above Evidence of hepatic cirrhosis, with marked hepatic atrophy and surface nodularity. Is also reported on prior abdominal ultrasound Cholelithiasis, also previously described. Subtle low-attenuation lesion in the upper pole of the spleen. Note that a hypoechoic lesion the spleen was reported on prior ultrasound. This could represent splenic infarct, splenic cyst, inflammatory lesion, less likely neoplasm bilateral hip prostheses, streak artifact from which may obscure pathology in the pelvis T12 and L2 compression fractures as described. Age indeterminate. Consider MRI for further evaluation if these are considered clinically relevant Other findings as noted, including coronary artery and aortic valvular calcifications, colonic diverticulosis left lower pole renal calcification, Nieves catheter, inferior vena cava filter The CT scanner at [facility] is accredited by the [employer] and the scans are performed using protocols designed to limit radiation exposure to as low as reasonably achievable to attain images of sufficient resolution adequate for diagnostic evaluation.
[2017-05-21 12:00] VITALS: BP 103/58
--- NOTE | 2017-05-21 12:44 | General Progress Note ---
Assessment/Plan Assessment/Plan ASSESSMENT AND PLAN: 1. Deep venous thrombosis of superficial femoral vein in the lower extremity --> ivc filter has been placed, patient is not a candidate for anticoagulation given worsening anemia 2. Coagulopathy. 3. Thrombocytopenia 2/2 liver disease --> abdominal US shows liver cirrhosis and splenomegaly 4. Anemia secondary to chronic disease with decrease in HH. No evidence of iron deficiency. --> occult blood is positive --> transfuse if patient is symptomatic or hgb below 7 --> blood in stool noted, GI following, continue to watch counts 5. Pneumonia. Management as per ID service. 6. Ascites --> s/p paracentesis today 7. Hypertension, currently better controlled. Subjective Constitutional: Reports: malaise, weakness HEENT: Reports: no symptoms Cardiovascular: Reports: no symptoms Respiratory: Reports: no symptoms Gastrointestinal/Abdominal: Reports: blood in stool Neurologic/Psychiatric: Reports: no symptoms Endocrine: Reports: no symptoms Hematologic/Lymphatic: Reports: anemia Allergies: Coded Allergies: No Known Allergies (Unverified , 05/15/17) Subjective blood streaked stool per RN Objective Last 24 Hour Vital Signs Date Time Temp Pulse Resp B/P (MAP) Pulse Ox O2 Delivery O2 Flow Rate FiO2 05/21/17 08:04 Nasal Cannula 2.0 28 05/21/17 08:02 100 Nasal Cannula 2.0 28 05/21/17 08:01 82 20 Nasal Cannula 2.0 28 05/21/17 08:00 87 05/21/17 08:00 97.0 60 20 90/60 95 Room Air 05/21/17 04:00 73 05/21/17 03:48 97.7 77 19 120/59 100 Nasal Cannula 3.0 05/21/17 00:00 80 05/20/17 23:44 97.6 74 20 118/57 100 Nasal Cannula 3.0 05/20/17 22:15 75 115/75 05/20/17 20:03 Nasal Cannula 2.0 28 05/20/17 20:03 97 Nasal Cannula 2.0 28 05/20/17 20:03 94 18 Nasal Cannula 2.0 28 05/20/17 20:00 82 05/20/17 19:55 98.2 86 18 115/75 96 Nasal Cannula 3.0 05/20/17 16:00 80 05/20/17 16:00 95.9 84 21 103/61 99 Nasal Cannula 3.0 Laboratory Tests 05/21/17 09:30: White Blood Count 8.5, Red Blood Count 2.44L, Hemoglobin 8.2L, Hematocrit 24.4L , Mean Corpuscular Volume 100H, Mean Corpuscular Hemoglobin 33.8H, Mean Corpuscular Hemoglobin Concent 33.8, Red Cell Distribution Width 16.9H, Platelet Count 116L, Mean Platelet Volume 8.0, Neutrophils (%) (Auto) , Lymphocytes (%) (Auto) , Monocytes (%) (Auto) , Eosinophils (%) (Auto) , Basophils (%) (Auto) , Differential Total Cells Counted 100, Neutrophils % ( Manual) 90H, Lymphocytes % (Manual) 3L, Monocytes % (Manual) 7, Eosinophils % ( Manual) 0, Basophils % (Manual) 0, Band Neutrophils 0, Platelet Estimate DecreasedL, Platelet Morphology Normal, Hypochromasia 1+, Anisocytosis 1+, Macrocytosis 1+, Sodium Level 128L, Potassium Level 4.0, Chloride Level 92L, Carbon Dioxide Level 17L, Anion Gap 19H, Blood Urea Nitrogen 105H, Creatinine 3.1H, Estimat Glomerular Filtration Rate , Glucose Level 128H, Calcium Level 7.7L, Phosphorus Level 5.4H, Magnesium Level 2.2, Total Bilirubin 7.1H, Direct Bilirubin 5.1H, Aspartate Amino Transf (AST/SGOT) 28, Alanine Aminotransferase ( ALT/SGPT) 11, Alkaline Phosphatase 179H, Total Protein 5.6L, Albumin 2.2L, Globulin 3.4, Albumin/Globulin Ratio 0.6L Height (Feet): 5 Height (Inches): 8.00 Weight (Pounds): 181 General Appearance: no apparent distress EENT: normal ENT inspection Neck: normal alignment Cardiovascular: regular rhythm, no JVD Respiratory/Chest: no respiratory distress, no accessory muscle use Abdomen: no mass Edema: 1+ Pedal (L), 1+ Pedal (R) Edema: trace edema Skin: normal pigmentation Devyn Hu May 21, 2017 12:44
--- NOTE | 2017-05-21 13:51 | Cardiac Electrophysiology PN ---
Assessment/Plan Assessment/Plan 1. Atrial fibrillation. Rate ok on Lopressor 12.5 bid . Patient is off anticoagulation for severe anemia. 2. Hypertension. On beta-bertram. 3. Hyperlipidemia, on Lipitor. 4. Severe anemia. S/P blood transfusion. Further evaluation by Dr. Hu. 5. Deep vein thrombosis of superficial femoral vein of the lower extremities. Anticoagulation contraindicated for worsening anemia. S/P inferior vena cava filter placement. 6. Liver cirrhosis. 7. Ascites secondary to cirrhosis.Going for Paracentesis today. 8. SOB BNP 39746 and scrotal edema.On Lasix 40 iv bid 9. Renal failure DW RN Subjective Subjective Had IVC filter placement.In atrial fib with controlled rate.Family at bedside. Awaiting Paracentesis. Objective Last 24 Hour Vital Signs Date Time Temp Pulse Resp B/P (MAP) Pulse Ox O2 Delivery O2 Flow Rate FiO2 05/21/17 12:00 97.0 74 20 103/58 95 Nasal Cannula 2.0 05/21/17 08:04 Nasal Cannula 2.0 28 05/21/17 08:02 100 Nasal Cannula 2.0 28 05/21/17 08:01 82 20 Nasal Cannula 2.0 28 05/21/17 08:00 87 05/21/17 08:00 97.0 60 20 90/60 95 Room Air 05/21/17 04:00 73 05/21/17 03:48 97.7 77 19 120/59 100 Nasal Cannula 3.0 05/21/17 00:00 80 05/20/17 23:44 97.6 74 20 118/57 100 Nasal Cannula 3.0 05/20/17 22:15 75 115/75 05/20/17 20:03 Nasal Cannula 2.0 28 05/20/17 20:03 97 Nasal Cannula 2.0 28 05/20/17 20:03 94 18 Nasal Cannula 2.0 28 05/20/17 20:00 82 05/20/17 19:55 98.2 86 18 115/75 96 Nasal Cannula 3.0 05/20/17 16:00 80 05/20/17 16:00 95.9 84 21 103/61 99 Nasal Cannula 3.0 Laboratory Tests Test 05/21/17 09:30 White Blood Count 8.5 K/UL (4.8-10.8) Red Blood Count 2.44 M/UL (4.70-6.10) L Hemoglobin 8.2 G/DL (14.2-18.0) L Hematocrit 24.4 % (42.0-52.0) L Mean Corpuscular Volume 100 FL (80-99) H Mean Corpuscular Hemoglobin 33.8 PG (27.0-31.0) H Mean Corpuscular Hemoglobin Concent 33.8 G/DL (32.0-36.0) Red Cell Distribution Width 16.9 % (11.6-14.8) H Platelet Count 116 K/UL (150-450) L Mean Platelet Volume 8.0 FL (6.5-10.1) Neutrophils (%) (Auto) % (45.0-75.0) Lymphocytes (%) (Auto) % (20.0-45.0) Monocytes (%) (Auto) % (1.0-10.0) Eosinophils (%) (Auto) % (0.0-3.0) Basophils (%) (Auto) % (0.0-2.0) Differential Total Cells Counted 100 Neutrophils % (Manual) 90 % (45-75) H Lymphocytes % (Manual) 3 % (20-45) L Monocytes % (Manual) 7 % (1-10) Eosinophils % (Manual) 0 % (0-3) Basophils % (Manual) 0 % (0-2) Band Neutrophils 0 % (0-8) Platelet Estimate Decreased L Platelet Morphology Normal Hypochromasia 1+ Anisocytosis 1+ Macrocytosis 1+ Sodium Level 128 mEQ/L (135-145) L Potassium Level 4.0 mEQ/L (3.4-4.9) Chloride Level 92 mEQ/L (98-107) L Carbon Dioxide Level 17 mEQ/L (20-30) L Anion Gap 19 (5-15) H Blood Urea Nitrogen 105 mg/dL (7-23) H Creatinine 3.1 mg/dL (0.7-1.2) H Estimat Glomerular Filtration Rate mL/min (>60) Glucose Level 128 mg/dL (74-106) H Calcium Level 7.7 mg/dL (8.6-10.2) L Phosphorus Level 5.4 mg/dL (2.5-4.8) H Magnesium Level 2.2 mg/dL (1.7-2.5) Total Bilirubin 7.1 mg/dL (0.0-1.2) H Direct Bilirubin 5.1 mg/dL (0.1-0.3) H Aspartate Amino Transf (AST/SGOT) 28 U/L (5-40) Alanine Aminotransferase (ALT/SGPT) 11 U/L (3-41) Alkaline Phosphatase 179 U/L (40-129) H Total Protein 5.6 g/dL (6.6-8.7) L Albumin 2.2 g/dL (3.5-5.2) L Globulin 3.4 g/dL Albumin/Globulin Ratio 0.6 (1.0-2.7) L Objective HEAD AND NECK: Shows no JVD. LUNGS: Decreased breath sounds with coarse rhonchi. CARDIOVASCULAR: Irregular S1 and S2 with no gallop or murmur. ABDOMEN: Distended.Ascites EXTREMITIES: 2 plus pitting edema and scrotal edema . He has an ulcer in his heels. ARLIN MIJARES May 21, 2017 13:51
[2017-05-21] MEDS ORDERED: Morphine Sulfate 2mg/ml Inj IVP PRN (14:00)
--- NOTE | 2017-05-21 17:04 | Diagnostic Imaging Report ---
Indications: Ascites Technique: Ultrasound used to localize optimal puncture site. Sterile prepping and draping right lower quadrant. Local anesthesia with 1% lidocaine. Under real-time ultrasound guidance, puncture peritoneal space using paracentesis needle. Stylet removed. Catheter placed to vacuum bottle suction. Total 8.2 liters of fluid aspirated. Patient tolerated procedure well, without immediate complication. Findings: Followup sonography demonstrates complete resolution of peritoneal fluid. Impression: Successful ultrasound-guided paracentesis, yielding 8.2 liters of fluid
--- NOTE | 2017-05-21 17:25 | Infectious Diseases Prog Note ---
Assessment/Plan Problems: (1) HCAP (healthcare-associated pneumonia) Assessment & Plan: improved, s/p cefepime and clindamycin empirical treatment , monitor CXR (2) Sepsis Assessment & Plan: due to the above, improved, blood culture is negative , monitor off antibiotics (3) Ascites Assessment & Plan: recurrent, due to liver cirrhosis, recommend paracentesis to rule out SBP, GI is following (4) Anasarca Assessment & Plan: due to liver cirrhosis, continue diuresis , monitor daily weight (5) COPD exacerbation Assessment & Plan: due to pneumonia, continue inhalers, and oxygen, monitor CXR (6) ARF (acute renal failure) Assessment & Plan: on top of 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, nephrology is following (7) DVT (deep venous thrombosis) Assessment & Plan: S/P IVC filter placement , poor candidate for anticoagulations (8) Unspecified open wound, right foot, initial encounter Assessment & Plan: not infected, culture grew yeast most likely colonization, continue local wound care (9) Altered mental status Assessment & Plan: rule out hepatic encephalopathy, recommend to check ammonia level, consult neurology Subjective ROS Limited/Unobtainable: Yes Allergies: Coded Allergies: No Known Allergies (Unverified , 05/15/17) Subjective he was altered, screaming , in pain , afebrile, at the bedside . Objective Vital Signs Last 24 Hour Vital Signs Date Time Temp Pulse Resp B/P (MAP) Pulse Ox O2 Delivery O2 Flow Rate FiO2 05/21/17 12:00 97.0 74 20 103/58 95 Nasal Cannula 2.0 05/21/17 08:04 Nasal Cannula 2.0 28 05/21/17 08:02 100 Nasal Cannula 2.0 28 05/21/17 08:01 82 20 Nasal Cannula 2.0 28 05/21/17 08:00 87 05/21/17 08:00 97.0 60 20 90/60 95 Room Air 05/21/17 04:00 73 05/21/17 03:48 97.7 77 19 120/59 100 Nasal Cannula 3.0 05/21/17 00:00 80 05/20/17 23:44 97.6 74 20 118/57 100 Nasal Cannula 3.0 05/20/17 22:15 75 115/75 05/20/17 20:03 Nasal Cannula 2.0 28 05/20/17 20:03 97 Nasal Cannula 2.0 28 05/20/17 20:03 94 18 Nasal Cannula 2.0 28 05/20/17 20:00 82 05/20/17 19:55 98.2 86 18 115/75 96 Nasal Cannula 3.0 Height (Feet): 5 Height (Inches): 8.00 Weight (Pounds): 181 General Appearance: WD/WN, no acute distress, cachetic HEENT: normocephalic, atraumatic, anicteric, mucous membranes moist, PERRL, supple, no JVD Respiratory/Chest: chest wall non-tender, no respiratory distress, no accessory muscle use, decreased breath sounds, crackles/rales Cardiovascular: normal peripheral pulses, normal rate, regular rhythm, no gallop/murmur, no JVD Abdomen: no organomegaly, no mass, no scars, absent bowel sounds, distended, tender, other - massive ascites Genitourinary: other - scrotal edema Extremities: no cyanosis, no clubbing Skin: no rash, no lesions, ulcers, other - bruises Neurologic/Psychiatric: unresponsiveness Musculoskeletal: normal muscle bulk Laboratory Tests Test 05/21/17 09:30 05/21/17 14:45 White Blood Count 8.5 K/UL (4.8-10.8) Red Blood Count 2.44 M/UL (4.70-6.10) L Hemoglobin 8.2 G/DL (14.2-18.0) L Hematocrit 24.4 % (42.0-52.0) L Mean Corpuscular Volume 100 FL (80-99) H Mean Corpuscular Hemoglobin 33.8 PG (27.0-31.0) H Mean Corpuscular Hemoglobin Concent 33.8 G/DL (32.0-36.0) Red Cell Distribution Width 16.9 % (11.6-14.8) H Platelet Count 116 K/UL (150-450) L Mean Platelet Volume 8.0 FL (6.5-10.1) Neutrophils (%) (Auto) % (45.0-75.0) Lymphocytes (%) (Auto) % (20.0-45.0) Monocytes (%) (Auto) % (1.0-10.0) Eosinophils (%) (Auto) % (0.0-3.0) Basophils (%) (Auto) % (0.0-2.0) Differential Total Cells Counted 100 Neutrophils % (Manual) 90 % (45-75) H Lymphocytes % (Manual) 3 % (20-45) L Monocytes % (Manual) 7 % (1-10) Eosinophils % (Manual) 0 % (0-3) Basophils % (Manual) 0 % (0-2) Band Neutrophils 0 % (0-8) Platelet Estimate Decreased L Platelet Morphology Normal Hypochromasia 1+ Anisocytosis 1+ Macrocytosis 1+ Sodium Level 128 mEQ/L (135-145) L Potassium Level 4.0 mEQ/L (3.4-4.9) Chloride Level 92 mEQ/L (98-107) L Carbon Dioxide Level 17 mEQ/L (20-30) L Anion Gap 19 (5-15) H Blood Urea Nitrogen 105 mg/dL (7-23) H Creatinine 3.1 mg/dL (0.7-1.2) H Estimat Glomerular Filtration Rate mL/min (>60) Glucose Level 128 mg/dL (74-106) H Calcium Level 7.7 mg/dL (8.6-10.2) L Phosphorus Level 5.4 mg/dL (2.5-4.8) H Magnesium Level 2.2 mg/dL (1.7-2.5) Total Bilirubin 7.1 mg/dL (0.0-1.2) H Direct Bilirubin 5.1 mg/dL (0.1-0.3) H Aspartate Amino Transf (AST/SGOT) 28 U/L (5-40) Alanine Aminotransferase (ALT/SGPT) 11 U/L (3-41) Alkaline Phosphatase 179 U/L (40-129) H Total Protein 5.6 g/dL (6.6-8.7) L Albumin 2.2 g/dL (3.5-5.2) L Globulin 3.4 g/dL Albumin/Globulin Ratio 0.6 (1.0-2.7) L Ammonia 13 umol/L (16-60) L Current Medications Medications (Trade) Dose Ordered Sig/Jenifer Route PRN Reason Start Time Stop Time Status Last Admin Dose Admin Acetaminophen (Tylenol) 500 mg EVERY 6 HOURS PRN ORAL Mild Pain/Temp > 100.5 05/16/17 00:30 06/15/17 00:29 05/20/17 06:42 Al Hydroxide/Mg Hydroxide (Mylanta) 30 ml FOUR TIMES A DAY PRN ORAL For Pain 05/16/17 00:30 06/15/17 00:29 Albumin Human 250 ml @ 0 mls/hr Q0M IV 05/22/17 09:00 06/21/17 08:59 Albumin Human 250 ml @ 0 mls/hr Q0M PRN IV one hour prior to paracentesis 05/20/17 17:30 05/21/17 23:59 05/21/17 11:59 Aspirin (ASA) 81 mg DAILY ORAL 05/16/17 09:00 06/15/17 08:59 05/20/17 08:51 Atorvastatin Calcium (Lipitor) 20 mg BEDTIME ORAL 05/16/17 21:00 06/15/17 20:59 05/20/17 22:15 Dextrose (Dextrose 50%) STAT PRN IV Hypoglycemia 05/16/17 00:30 06/15/17 00:29 Insulin Aspart (NovoLOG) BEFORE MEALS AND HS SUBQ 05/16/17 06:30 06/15/17 06:29 05/21/17 11:53 Morphine Sulfate (Morphine Sulfate) 0.5 mg Q6H PRN IVP PAIN 4-10 05/21/17 14:00 05/28/17 13:59 Axel Jensen M.D. May 21, 2017 17:25
[2017-05-21 17:35] VITALS: BP 120/68
[2017-05-21 20:00] VITALS: BP 111/62
[2017-05-21] MEDS: Atorvastatin 20mg tab ORAL SCH (21:21)
--- NOTE | 2017-05-21 21:45 | History and Physical Report ---
DATE OF ADMISSION: 05/15/2017 HISTORY AND PHYSICAL/PROGRESS NOTE History of Present Illness: The patient is an 81-year-old male, who has past medical history for HIV came to the emergency room for failure to thrive, generalized weakness, cirrhosis, and poor p.o. intake. The patient is not talking, he is just moaning, and family is on bedside. The nurse claiming he ate pretty good. Otherwise, he is always moaning due to the pain. PAST MEDICAL HISTORY: HIV, cirrhosis, CHF, and hypertension. MEDICATIONS: See the list. ALLERGIES: NKA. PHYSICAL EXAMINATION: GENERAL: This is an elderly cachectic male, who looks sick. Vital Signs: Blood pressure is 130/70, pulse 60s, respirations 18, and no fever. HEENT: Eyes are open. NECK: Supple. CHEST: Bilateral crackles. CARDIOVASCULAR: Regular rhythm. No gallop. No murmur. ABDOMEN: Soft. Positive bowel sounds. Ascites. EXTREMITIES: CCE. NEUROLOGICAL: Generalized weakness and bedbound. ASSESSMENT AND PLAN: 1. Failure to thrive. 2. Sepsis. 3. Cirrhosis. 4. Congestive heart failure. 5. Human immunodeficiency virus. We will currently continue supportive treatment. We will add morphine for severe pain. Continue [place]. Continue supportive treatment. Calorie count. GI is on case. Ricardo Isidro M.D. DR: TED JOB#: [id number] CC:
--- NOTE | 2017-05-21 22:55 | Nephrology Progress Note ---
Assessment/Plan Problem List: (1) Renal failure (ARF), acute on chronic (2) COPD exacerbation (3) Weakness (4) Ascites (5) Sepsis (6) HTN (hypertension) (7) Liver cirrhosis (8) Congestive heart failure (CHF) Plan Insert szymanski catheter Urine culture Urology consult Continue lasix per cardiology Monitor renal function Monitor Lytes, correct prn Monitor H&H, transfuse prn Monitor intake and output Hematology following, will follow up with rec Cardiology following AM labs Objective Objective Last 24 Hour Vital Signs Date Time Temp Pulse Resp B/P (MAP) Pulse Ox O2 Delivery O2 Flow Rate FiO2 05/21/17 20:00 97.7 100 22 111/62 93 Nasal Cannula 2.0 28 05/21/17 20:00 103 05/21/17 19:05 Nasal Cannula 2.0 28 05/21/17 19:05 100 Nasal Cannula 2.0 28 05/21/17 19:05 85 20 Nasal Cannula 2.0 28 05/21/17 17:35 97.7 101 22 120/68 93 05/21/17 16:00 96 05/21/17 12:00 97.0 74 20 103/58 95 Nasal Cannula 2.0 05/21/17 12:00 94 05/21/17 08:04 Nasal Cannula 2.0 28 05/21/17 08:02 100 Nasal Cannula 2.0 28 05/21/17 08:01 82 20 Nasal Cannula 2.0 28 05/21/17 08:00 87 05/21/17 08:00 97.0 60 20 90/60 95 Room Air 05/21/17 04:00 73 05/21/17 03:48 97.7 77 19 120/59 100 Nasal Cannula 3.0 05/21/17 00:00 80 05/20/17 23:44 97.6 74 20 118/57 100 Nasal Cannula 3.0 Intake and Output 05/21/17 05/22/17 19:00 07:00 Intake Total 250 ml Output Total 100 ml Balance 150 ml IV Total 250 ml Output Urine Total 100 ml # Bowel Movements 1 Laboratory Tests 05/21/17 09:30: White Blood Count 8.5, Red Blood Count 2.44L, Hemoglobin 8.2L, Hematocrit 24.4L , Mean Corpuscular Volume 100H, Mean Corpuscular Hemoglobin 33.8H, Mean Corpuscular Hemoglobin Concent 33.8, Red Cell Distribution Width 16.9H, Platelet Count 116L, Mean Platelet Volume 8.0, Neutrophils (%) (Auto) , Lymphocytes (%) (Auto) , Monocytes (%) (Auto) , Eosinophils (%) (Auto) , Basophils (%) (Auto) , Differential Total Cells Counted 100, Neutrophils % ( Manual) 90H, Lymphocytes % (Manual) 3L, Monocytes % (Manual) 7, Eosinophils % ( Manual) 0, Basophils % (Manual) 0, Band Neutrophils 0, Platelet Estimate DecreasedL, Platelet Morphology Normal, Hypochromasia 1+, Anisocytosis 1+, Macrocytosis 1+, Sodium Level 128L, Potassium Level 4.0, Chloride Level 92L, Carbon Dioxide Level 17L, Anion Gap 19H, Blood Urea Nitrogen 105H, Creatinine 3.1H, Estimat Glomerular Filtration Rate , Glucose Level 128H, Calcium Level 7.7L, Phosphorus Level 5.4H, Magnesium Level 2.2, Total Bilirubin 7.1H, Direct Bilirubin 5.1H, Aspartate Amino Transf (AST/SGOT) 28, Alanine Aminotransferase ( ALT/SGPT) 11, Alkaline Phosphatase 179H, Total Protein 5.6L, Albumin 2.2L, Globulin 3.4, Albumin/Globulin Ratio 0.6L 05/21/17 14:45: Ammonia 13L 05/21/17 17:30: Body Fluid Albumin [Pending] Height (Feet): 5 Height (Inches): 8.00 Weight (Pounds): 181 Ada Weston N.P. May 21, 2017 22:55
[2017-05-21 23:33] LABS: ABG ALLEN TEST POSITIVE; ABG PCO2 25.3 mmHg (35.0-45.0)
[2017-05-22] VITALS: BP 80/39
[2017-05-22 04:00] VITALS: BP 89/42
[2017-05-22] MEDS: NovoLOG Insulin Flexpen SUBQ SCH (06:30)
--- NOTE | 2017-05-22 07:13 | Emergency Room Report ---
History of Present Illness General Chief Complaint: Generalized Weakness Source: Family Member Present Illness Allergies: Coded Allergies: No Known Allergies (Unverified , 05/15/17) Nursing Documentation-[facility] Past Medical History: No History, Except For Hx Cardiac Problems: Yes - rheumatic aortic valve regurgitation , HF Hx Hypertension: Yes Hx COPD: Yes Hx Diabetes: Yes Hx Cancer: No Hx Neurological Problems: No Physical Exam Vital Signs Date Time Temp Pulse Resp B/P (MAP) Pulse Ox O2 Delivery O2 Flow Rate FiO2 05/15/17 00:00 104 05/15/17 18:56 98.4 18 110/50 90 Nasal Cannula 3.0 05/16/17 08:06 28 Procedures CPR/Code Blue CPR/Code Blue Narrative Patient is 81-year-old male with a report cardiac arrest. Patient noted have become apneic and pulseless. The patient prior history of multiple medical conditions including cirrhosis and congestive heart failure as well as kidney injury. The patient was intubated for airway protection without medication after preoxygenation after direct laryngoscopy x1 times one with a MAC 3 blade and ventilation. The patient was given medications as per code sheet. ET tube was secured at 24. The patient return of spontaneous circulation. Rhythm showed atrial fibrillation with a rate in the 60s after a return of circulation. post procedure chest x-ray is pending. Medical Decision Making Diagnostic Impression: Primary Impression: COPD exacerbation Additional Impressions: ARF (acute renal failure) Qualified Codes: N17.9 - Acute kidney failure, unspecified Sepsis Qualified Codes: A41.9 - Sepsis, unspecified organism Pneumonia Qualified Codes: J18.1 - Lobar pneumonia, unspecified organism Last Vital Signs Date Time Temp Pulse Resp B/P (MAP) Pulse Ox O2 Delivery O2 Flow Rate FiO2 05/22/17 04:00 98.2 106 12 89/42 100 Venturi Mask 8.0 28 Disposition: ADMITTED INPATIENT Condition: Serious Referrals: MARIA DEL CARMEN GRAY (PCP) Isaiah Elliott May 22, 2017 07:13
[2017-05-22 07:14] LABS: MEAN CORPUSCULAR HEMOGLOBIN 33.8 PG (27.0-31.0); MEAN CORPUSCULAR HGB CONC 33.4 G/DL (32.0-36.0); MEAN CORPUSCULAR VOLUME 101 FL (80-99); MEAN PLATELET VOLUME 7.3 FL (6.5-10.1); PLATELET COUNT 142 K/UL (150-450); RED BLOOD COUNT 2.76 M/UL (4.70-6.10); RED CELL DISTRIBUTION WIDTH 17.2 % (11.6-14.8); WHITE BLOOD COUNT 10.3 K/UL (4.8-10.8)
[2017-05-22 07:24] LABS: ANION GAP 22 (5-15); CALCIUM 7.6 mg/dL (8.6-10.2); CARBON DIOXIDE 14 mEQ/L (20-30); CHLORIDE 95 mEQ/L (98-107); CREATININE 3.6 mg/dL (0.7-1.2); HEMOLYSIS 3; POTASSIUM 4.8 mEQ/L (3.4-4.9); SODIUM 131 mEQ/L (135-145)
[2017-05-22 08:00] VITALS: BP 57/32
[2017-05-22] MEDS ORDERED: Acetaminophen 500mg (ES) tab ORAL PRN (09:00)
[2017-05-22] MEDS ORDERED: Morphine Sulfate 2mg/ml Inj IVP PRN (09:00)
[2017-05-22] MEDS ORDERED: Aspirin Baby 81mg ORAL SCH (09:00)
[2017-05-22] MEDS ORDERED: Albumin Human 5% 250ml IV SCH ×2 (09:00)
--- NOTE | 2017-05-22 09:40 | Diagnostic Imaging Report ---
Indication: Dyspnea Technique: XRAY CHEST 1 V Comparison: 05/15/17 Findings: Endotracheal tube is present in satisfactory position. The cardiomediastinal silhouette is stable. Atherosclerotic changes are noted. Bilateral interstitial edema versus infiltrates are seen. Right costophrenic angle is blunted suggestive of pleural effusion. Right apical pleural fluid or thickening is unchanged. Osseous structures are stable. IVC filter is partially visualized. Transcutaneous pads are noted. Impression: Satisfactory intubation. Bilateral interstitial edema versus infiltrates. Small right pleural effusion. Other findings as above.
[2017-05-22 10:23] LABS: BAND NEUTROPHILS % (MANUAL) 6 % (0-8); BASOPHILS % (MANUAL) 0 % (0-2); EOSINOPHILS % (MANUAL) 0 % (0-3); LYMPHOCYTES % (MANUAL) 1 % (20-45); MACROCYTES 1+; NEUTROPHILS % (MANUAL) 91 % (45-75); PLATELET ESTIMATE DECREASED; PLATELET MORPHOLOGY NORMAL; TOTAL CELLS COUNTED 100
[2017-05-22 10:24] LABS: ANISOCYTOSIS 1+
[2017-05-22] MEDS ORDERED: NS 275ml ONE (11:07)
[2017-05-22] MEDS ORDERED: Sodium Bicarbonate 8.4% 50ml Inj ONE (11:07)
[2017-05-22] MEDS ORDERED: EPINEPHrine 1mg/10ml Syringe IV ONE (11:07)
[2017-05-22] MEDS ORDERED: Tubing Blood Filter IV ONE (11:07)
[2017-05-22] MEDS ORDERED: Atropine Inj 1mg/10ml Syr ONE (11:07)
[2017-05-22] MEDS ORDERED: NovoLOG Insulin Flexpen SUBQ SCH (11:30)
[2017-05-22] MEDS ORDERED: Atorvastatin 20mg tab ORAL SCH (21:00)
--- NOTE | 2017-05-23 20:00 | Consultation ---
DATE OF CONSULTATION: 05/16/2017 ADDENDUM INFECTIOUS DISEASE CONSULTATION Review Of Systems: Unable to obtain at this point. The patient is a poor historian, could not provide good history. Past Medical History: Significant for hypertension; COPD; chronic liver cirrhosis, complicated with esophageal varices and recurrent ascites, required multiple paracentesis; malnutrition; and recent healthcare-acquired pneumonia, status post antibiotic treatment at [facility]. PAST SURGICAL HISTORY: Negative. Medications: The patient received Zosyn in the emergency room. For the rest of his medications. Please refer to MAR. ALLERGIES: He has no known drug allergy. Social History: The patient was recently at the rehabilitation facility. There are no recent drugs, tobacco, or alcohol. FAMILY HISTORY: Noncontributory. PHYSICAL EXAMINATION: Vital Signs: Temperature 98.1 degrees, pulse 94, respirations 18, blood pressure 118/65, and saturation 98% on 2 liter nasal cannula. General: Elderly male, cachectic, up in bed, awake, alert, but confused, not in acute distress. HEENT: Normocephalic and atraumatic. Pupils are reactive to light. Pale sclerae. Moist oral mucosa. No exudate. No jaundice. NECK: Supple. No lymphadenopathy. Midline trachea. CARDIOVASCULAR: Regular rate and rhythm. No murmur. No gallop. Lungs: He had diminished breathing sounds with crackles at the bases. Normal breathing efforts. Abdomen: Soft, severely distended with massive ascites. Positive wave sign. Unable to appreciate organomegaly, dull per percussion. Extremities: Edema +2 with multiple skin bruises and a small wound in the right dorsal foot. Skin: He had multiple ecchymosis and bruises with hemorrhage all over his upper and lower extremity and back from his coagulopathy. Laboratory Data: White count showed 5.4, hemoglobin 8.5, and platelet count 148,000. BUN of 95 and creatinine of 2.8. AST of 26 and ALT of 11. Urinalysis showed +1 leukocyte esterase, WBC 5 to 10, and occasional bacteria. MICROBIOLOGY: Unavailable at the time of the consult dictation. Imaging: Chest x-ray on admission showed small right pleural effusion versus pleural thickening, bibasilar atelectases, and osteopenia. ASSESSMENT AND RECOMMENDATION: 1. Healthcare-acquired pneumonia. We will send sputum culture and start cefepime with clindamycin empiric treatment. Monitor chest x-ray. 2. Sepsis, suspect due to the above. We will send blood culture and start antibiotic coverage with cefepime and clindamycin pending culture results. 3. Ascites, recurrent due to liver cirrhosis. Recommend paracentesis to rule out spontaneous bacterial peritonitis and Gastroenterology consult for further evaluation and management. 4. Anasarca due to liver cirrhosis. Continue diuresis. Monitor daily weight and urine output. 5. Chronic obstructive pulmonary disease with exacerbation due to pneumonia. Continue inhalers, oxygen therapy, and antibiotics. Monitor chest x-ray. 6. Acute renal failure on top of chronic, suspect hepatorenal. Nephrology team is following. Thank you for the consult. Infectious Disease will continue to follow. Axel Jensen M.D. DR: Patricia JOB#: [id number] CC:
--- NOTE | 2017-05-23 22:16 | Diagnostic Imaging Report ---
APPROVED REPORT CPT Code: 89915 RIGHT LEG: Venous imaging reveals acute thrombus in the common femoral and superficial femoral veins. Remainder of the deep venous system is within normal limits. There is no evidence of thrombus within the popliteal or tibial segments. The greater saphenous vein is also thrombosed. LEFT LEG: Venous imaging reveals a patent deep venous system. There is no evidence of thrombus within the femoral, popliteal or tibial segments. The greater saphenous vein is also within normal limits. Doppler indicates normal spontaneous flow within these segments. ANTOINE Michel was notified of abnormal results at 0940 hours.
--- NOTE | 2017-05-25 08:12 | Discharge Summary ---
Discharge Summary Hospital Course Date of Admission May 15, 2017 at 20:27 Date of Discharge May 22, 2017 at 11:08 Admitting Diagnosis weakness NKECHI Adler is a 81 year old male who was admitted on May 15, 2017 at 20:27 for Weakness Hospital Course summary #[id number] Discharge Discharge Disposition Patient was discharged to Discharge Diagnoses: Discharge Instructions Discharge Instructions Special Instructions I have been assigned to complete a D/C Summary on this account. I was not involved in the patient management Evelyn Jarquin NP ([place]) May 25, 2017 08:12
--- NOTE | 2017-05-26 04:45 | Discharge Summary 2 SIG ---
SUMMARY DATE OF ADMISSION: 05/15/2017 DATE OF EXPIRATION: 05/22/2017 History of present illness: 81-year-old male, resident of the halfway facility with past medical history significant for COPD and hypertension was sent from the halfway facility for evaluation. The patient appeared to be hypoxic on room air at the facility. The patient also appeared to be more weak than usual. Upon arrival, the patient was placed on supplemental oxygen. No fever. No chills. No chest pain. No shortness of breath. Workup revealed pulse oximetry 90% on 3 L via nasal cannula. Other vital signs stable. Chest x-ray revealed bilateral lower lobe infiltrates. EKG showed atrial fibrillation with right bundle-branch block, rate controlled. Lactic acid -3.3, repeated - 2.5. No leukocytosis Pro BNP- 54,744. Troponin was negative. Urinalysis showed pyuria but few bacteria. The patient recently was diagnosed with pneumonia and was on antibiotic prior to arrival to the ED. Septic protocol was initiated. Fluid resuscitation started. The patient was pancultured. The patient was noted to be in renal failure with BUN -95, creatinine -2.8 and anemic with hemoglobin -9.7 and hematocrit -28.5. Patient was admitted to the telemetry for further management. ADMITTING DIAGNOSES: 1. Sepsis. 2. Pneumonia. 3. Chronic obstructive pulmonary disease exacerbation. 4. Acute renal failure. 5. Altered mental status. Hospital Course: The patient was admitted to telemetry floor. The patient was started on empiric antibiotics. ID specialist was followed. Blood culture were negative. Ammonia Still Operator followed. The patient started on diuresis. Echocardiogram was technically difficult study due to the patient's body habitus. All views were subcostal however to the extent visualized normal left ventricular chamber size, systolic function and wall motion, ejection fraction grossly estimated to be 60% to 65%. No evidence of pericardial effusion. Ammonia Still Operator placed the patient on beta-bertram for rate control. No anticoagulation due to severe anemia. Hemoglobin on 05/17/2017 down to 7.9, hematocrit -22.8. The patient undergone blood transfusion with two units of packed red blood cells. Anemia workup revealed evidence of anemia of chronic disease. Monotype Setter followed. Venous duplex bilateral lower extremities revealed acute DVT right lower extremity in common femoral and superficial femoral veins. The patient subsequently undergone placement of IVC filter on 05/18/2017 since there was contraindication to anticoagulation due to the severe anemia. Blood pressure initially was managed with beta-bertram. Statin was continued. Supplemental oxygen and pulmonary toilet provided as needed. Abdominal ultrasound revealed evidence of hepatic cirrhosis with atrophic liver and coarsened hepatic echogenicity, surface micronodularity. Large amount of ascitic fluid, splenomegaly, cholelithiasis, gallbladder wall thickening. The patient was on the diuretics. Ammonia level was within normal limits. Pro BNP with only small decrease to 46,345. Renal parameters were closely monitored and were worsening. Diuretic stopped later secondary to worsening of renal parameters. Urology consult was requested for scrotal edema. Per urologist, scrotal edema was just the symptom of cirrhosis and fluid retention. No specific treatment was necessary for scrotal edema. Urologist recommended to continue diuresis to help with fluid retention. CT of the abdomen and pelvis was done on 05/21/2017 and revealed massive ascites, anasarca, moderate- sized bilateral pleural effusion, compressive pulmonary atelectasis, extensive bullous COPD changes, evidence of chronic fibrosis and 4 millimeter nodule in the left upper lobe. The patient subsequently undergone paracentesis under CT guidance which yielded 8.2 liter of fluid. Ascitic fluid culture was negative; therefore, spontaneous bacterial peritonitis was ruled out. GI followed due to the stool OB being positive and elevated CEA. The patient undergone prior at [facility] on 05/10/2017 EGD, which revealed erosive esophagitis. Hepatitis panel was negative. HIV status was negative. The patient was on PPI. Albumin was given prior to paracentesis and was ordered for additional three days. Recommended avoid nonsteroid anti-inflammatory drugs. Video swallow evaluation was done, Speech therapist recommended to continue NG tube feeding, but for oral gratification may have diet for quality of life. Wound care provided as per wound care protocol per wound nurse recommendations. On 05/22/2017, the patient became bradycardic with a heart rate of 38 , unresponsive to verbal and tactile stimuli. Code Blue was called at 06:46am The patient was subsequently intubated by emergency room doctor. There was spontaneous return of circulation at 07:11 a.m. The patient was subsequently transferred to ICU. In ICU, the patient became bradycardic down to 20 and Code Blue initiated via ACLS protocol. Bradycardia became asystole and despite multiple attempts patient was unable to be resuscitated. All resuscitation efforts were unsuccessful. The patient . Cause of was cardiopulmonary arrest. FINAL DIAGNOSES: 1. Sepsis. 2. Healthcare-associated pneumonia. 3. Acute respiratory failure, requiring intubation. 4. Congestive heart failure, acute with shortness of breath. 5. Status post cardiac arrest. 6. Chronic obstructive pulmonary disease exacerbation. 7. Acute on chronic renal failure. 8. Acute deep venous thrombosis right lower extremity, common femoral vein and superficial femoral vein. 9. Status post IVC filter on 05/28/2017. 10. Atrial fibrillation. 11. Liver cirrhosis. 12. Ascites secondary to cirrhosis. 13. Status post paracenteses -8.2 liter. 14. Severe anemia, requiring blood transfusion. 15. Anemia of chronic disease. 16. Anasarca. 17. Hypertension. 18. Elevated CEA. 19. Stool OB positive. 20. Hyperlipidemia. 21. Scrotal edema Rickie Nair M.D. I have been assigned to dictate discharge summary on this account and I was not involved in the patient's management. Evelyn Brownst. luke[facility] hospital[facility] DR: Maria Del Rosario JOB#: [id number] CC: [email or web address]
== END 2017-05-22 11:08 | disposition expired | DRG 969 ==
LOC: EDBD 19:00 → EMR 19:15 → EDBEDREQSVC 19:58 → 2E 20:27 → EDBEDREQ 21:05 → ICU 05-22 07:10
PROC: 30233N1 Transfusion of Nonautologous Red Blood Cells into Peripheral Vein, Percutaneous Approach (ICD-10-PCS; 2017-05-17)
PROC: 06H03DZ Insertion of Intraluminal Device into Inferior Vena Cava, Percutaneous Approach (ICD-10-PCS; principal; 2017-05-18)
PROC: 0W9G3ZZ Drainage of Peritoneal Cavity, Percutaneous Approach (ICD-10-PCS; 2017-05-21)
PROC: 5A1935Z Respiratory Ventilation, Less than 24 Consecutive Hours (ICD-10-PCS; 2017-05-22)
PROC: 0BH17EZ Insertion of Endotracheal Airway into Trachea, Via Natural or Artificial Opening (ICD-10-PCS; 2017-05-22)
DX: A41.9 Sepsis, unspecified organism (principal); B20 Human immunodeficiency virus [HIV] disease; J96.00 Acute respiratory failure, unspecified whether with hypoxia or hypercapnia; N17.9 Acute kidney failure, unspecified; J18.9 Pneumonia, unspecified organism; D68.4 Acquired coagulation factor deficiency; R18.8 Other ascites; I82.411 Acute embolism and thrombosis of right femoral vein; F03.90 Unspecified dementia, unspecified severity, without behavioral disturbance, psychotic disturbance, mood disturbance, and anxiety; D69.59 Other secondary thrombocytopenia; J44.1 Chronic obstructive pulmonary disease with (acute) exacerbation; K74.60 Unspecified cirrhosis of liver; D63.8 Anemia in other chronic diseases classified elsewhere; I50.9 Heart failure, unspecified; R62.7 Adult failure to thrive; K80.20 Calculus of gallbladder without cholecystitis without obstruction; E78.5 Hyperlipidemia, unspecified; I12.9 Hypertensive chronic kidney disease with stage 1 through stage 4 chronic kidney disease, or unspecified chronic kidney disease; N18.9 Chronic kidney disease, unspecified; I48.91 Unspecified atrial fibrillation; R97.0 Elevated carcinoembryonic antigen [CEA]; K20.9 Esophagitis, unspecified
CPT/HCPCS: 36415; 36600; 71010; 71250; 74176; 74230; 76700; 76937; 76942; 80048; 80053; 81003; 82140; 82248; 82270; 82378; 82550; 82553; 82607; 82728; 82746; 82803; 82962; 83010; 83540; 83550; 83605; 83735; 83880; 83921; 84100; 84484; 85007; 85025; 85044; 85060; 85384; 85610; 85730; 86703; 86705; 86709; 86803; 86850; 86900; 86901; 86920; 87040; 87070; 87081; 87205; 87340; 88104; 92950; 93005; 93306; 93970; 94002; 94640; 94664; 94760; 99285; J0171; J1815; S0077